=== PATIENT | female | born 1945 | race Caucasian/White ===

== ENCOUNTER 2020-05-17 10:45 | Outpatient (REF) | payer MEDICARE, SELFPAY ==
[2020-05-17 11:36] LABS: MANUAL DIFF FLAG NO
[2020-05-17 11:48] LABS: Basophils Percent Auto 0.6 % (0-2); Eosinophils Absolute Auto 0.1 X10*3/uL (0.0-0.4); Hematocrit 38.4 % (37-47); Hemoglobin 12.4 g/dl (12.0-16.0); Imm Gran Abs Auto 0.01 X10*3/uL (0.00-0.03); Imm Gran Pct Auto 0.2 % (0.0-0.4); Lymphocytes Percent Auto 39.6 % (20-40); Mean Corpuscular HGB Conc 32.3 g/dl (31.0-35.0); Mean Corpuscular Hemoglobin 29.8 pg (27.0-33.0); Mean Corpuscular Volume 92.3 fL (80-98); Monocytes Absolute Auto 0.5 X10*3/uL (0.1-1.2); Monocytes Percent Auto 8.8 % (2-11); Neutrophils Absolute Auto 2.5 X10*3/uL (2.0-8.3); Neutrophils Percent Auto 48.8 % (45-73); Platelet Count 286 X10*3/uL (160-400); Red Blood Count 4.16 X10*6/uL (4.20-5.50); White Blood Count 5.1 X10*3/uL (4.8-10.8)
[2020-05-17 12:06] LABS: Alanine Aminotransferase 23 U/L (0-31); Albumin Level 4.2 g/dL (3.5-5.0); Alkaline Phosphatase 87 U/L (39-117); Anion Gap 11 (12-20); Aspartate Amino Transferase 20 U/L (5-31); Bilirubin Total 0.6 mg/dL (0.0-1.0); Blood Urea Nitrogen 21 mg/dL (9-16); Calcium 10.1 mg/dL (8.4-10.2); Carbon Dioxide 28 mmol/L (22-29); Chloride 106 mmol/L (96-108); Cholesterol 199 mg/dL; Estimated Glomerular Filt Rate 56; Glucose Fasting 101 mg/dL (60-99); HDL Cholesterol 61 mg/dL; LDL Cholesterol Calculated 122 mg/dl; Potassium 4.7 mmol/L (3.3-5.1); Sodium 140 mmol/L (135-145); Total Protein 6.6 g/dL (6.5-8.0); Triglycerides 84 mg/dL
[2020-05-17 12:14] LABS: TSH reflex Free T4 0.58 uIU/mL (0.32-4.0)
[2020-05-17 12:37] LABS: Glucose Urine UA NEG (NEG); Leukocyte Esterase Urine NEG (NEG); Nitrite Urine NEG (NEG); Urine Blood NEG (NEG); Urine Ketones NEG (NEG); Urine Protein NEG (NEG-TRACE)
[2020-05-17 12:41] LABS: Appearance Urine CLEAR; Color Urine YELLOW
[2020-05-17 12:53] LABS: Folate 7.2 ng/mL (> or = 4.0); Vitamin B12 789 pg/mL (200-900)
== END 2020-05-17 10:46 | disposition home or self-care (01) ==
LOC: HO.LAB 10:45
PROVIDERS: PCP Internal Medicine; Visit Provider Internal Medicine
DX: E78.00 Pure hypercholesterolemia, unspecified (principal); I10 Essential (primary) hypertension
CPT/HCPCS: 36415; 80053; 80061; 81003; 82607; 82746; 84443; 85025

== ENCOUNTER 2020-09-20 11:14 | Outpatient (REF) | payer MEDICARE, SELFPAY ==
[2020-09-20 12:04] LABS: MANUAL DIFF FLAG NO
[2020-09-20 12:11] LABS: Basophils Percent Auto 0.5 % (0-2); Eosinophils Absolute Auto 0.1 X10*3/uL (0.0-0.4); Eosinophils Percent Auto 1.8 % (0-4); Hematocrit 40.7 % (37-47); Hemoglobin 13.3 g/dl (12.0-16.0); Imm Gran Abs Auto 0.01 X10*3/uL (0.00-0.03); Imm Gran Pct Auto 0.2 % (0.0-0.4); Lymphocytes Absolute Auto 1.8 X10*3/uL (1.2-4.9); Lymphocytes Percent Auto 30.3 % (20-40); Mean Corpuscular HGB Conc 32.7 g/dl (31.0-35.0); Mean Corpuscular Hemoglobin 29.8 pg (27.0-33.0); Mean Corpuscular Volume 91.3 fL (80-98); Mean Platelet Volume 9.3 fL (9.4-12.3); Monocytes Absolute Auto 0.5 X10*3/uL (0.1-1.2); Neutrophils Absolute Auto 3.5 X10*3/uL (2.0-8.3); Neutrophils Percent Auto 58.2 % (45-73); Platelet Count 282 X10*3/uL (160-400); Red Blood Count 4.46 X10*6/uL (4.20-5.50); Red Cell Distribution Width 12.8 % (11.0-16.0)
[2020-09-20 12:43] LABS: Alanine Aminotransferase 21 U/L (0-31); Albumin Level 4.6 g/dL (3.5-5.0); Alkaline Phosphatase 87 U/L (39-117); Anion Gap 12 (12-20); Aspartate Amino Transferase 19 U/L (5-31); Bilirubin Total 1.3 mg/dL (0.0-1.0); Blood Urea Nitrogen 15 mg/dL (9-16); C Reactive Protein 0.04 mg/dL (< or = 0.50); Calcium 10.5 mg/dL (8.4-10.2); Carbon Dioxide 27 mmol/L (22-29); Chloride 105 mmol/L (96-108); Cholesterol 251 mg/dL; Estimated Glomerular Filt Rate > 60; Glucose Fasting 102 mg/dL (60-99); HDL Cholesterol 66 mg/dL; LDL Cholesterol Calculated 165 mg/dl; Potassium 4.3 mmol/L (3.3-5.1); Sodium 140 mmol/L (135-145); Total Protein 7.2 g/dL (6.5-8.0); Triglycerides 103 mg/dL
[2020-09-20 12:55] LABS: TSH reflex Free T4 1.13 uIU/mL (0.32-4.0); Vitamin D 25-OH Total 23.2 ng/mL (>30)
[2020-09-20 13:05] LABS: Erythrocyte Sedimentation Rate 10 MM/HR (0-20)
[2020-09-20 13:32] LABS: Folate 11.4 ng/mL (> or = 4.0); Vitamin B12 945 pg/mL (200-900)
[2020-09-20 13:33] LABS: Glucose Urine UA NEG (NEG); Leukocyte Esterase Urine NEG (NEG); Nitrite Urine NEG (NEG); Urine Blood NEG (NEG); Urine Ketones NEG (NEG); Urine Protein NEG (NEG-TRACE)
[2020-09-20 13:40] LABS: Appearance Urine CLEAR; Color Urine YELLOW; UACC Culture Trigger NO
[2020-09-21 17:31] LABS: Lyme Abs Screen <0.90 index
[2020-09-22 13:03] LABS: Anti Nuclear Antibody Screen NEGATIVE (NEGATIVE)
== END 2020-09-20 11:15 | disposition home or self-care (01) ==
LOC: HO.LAB 11:14
PROVIDERS: PCP Internal Medicine; Visit Provider Internal Medicine
DX: E53.8 Deficiency of other specified B group vitamins (principal); I10 Essential (primary) hypertension; M25.50 Pain in unspecified joint; M79.10 Myalgia, unspecified site; E78.00 Pure hypercholesterolemia, unspecified; E55.9 Vitamin D deficiency, unspecified
CPT/HCPCS: 36415; 80053; 80061; 81003; 82306; 82550; 82607; 82746; 84443; 85025; 85652; 86038; 86039; 86140; 86617; 86618

== ENCOUNTER 2021-02-02 17:49 | Outpatient (REF) | payer MEDICARE, SELFPAY ==
--- NOTE | ~2021-02-02 | MR_ITS ---
MRI OF THE BRAIN WITHOUT IV CONTRAST INDICATION: Mild dementia. COMPARISON: None available. TECHNIQUE: Multiplanar multisequence MR imaging of the brain was obtained without IV contrast. FINDINGS: There is no hydrocephalus, extra-axial surface collection, or herniation. 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 Chronic lacunar infarcts within the cerebellar hemispheres bilaterally. The major flow voids at the skull base are preserved. There is no acute infarct on diffusion-weighted imaging. There is no intracranial hemorrhage on the gradient recalled echo acquisition. The midline structures are normal. The cerebellar tonsils are normally positioned. The cerebellum and brainstem are normal. The craniocervical junction is normal. Osseous marrow signal intensity is homogenous. The visualized soft tissues are unremarkable. 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 Chronic lacunar infarcts within the cerebellar hemispheres bilaterally. No acute findings.
== END 2021-02-02 17:50 | disposition home or self-care (01) ==
LOC: HO.MRI 17:49
PROVIDERS: Visit Provider Psychiatry & Neurology Neurology
DX: F03.90 Unspecified dementia, unspecified severity, without behavioral disturbance, psychotic disturbance, mood disturbance, and anxiety (principal)
CPT/HCPCS: 70551

== ENCOUNTER 2021-02-25 06:54 | Outpatient (REF) | payer MEDICARE, SELFPAY ==
[2021-02-25 07:02] LABS: MANUAL DIFF FLAG NO
[2021-02-25 07:25] LABS: Basophils Percent Auto 0.7 % (0-2); Eosinophils Absolute Auto 0.1 X10*3/uL (0.0-0.4); Eosinophils Percent Auto 2.1 % (0-4); Hematocrit 40.7 % (37.0-47.0); Hemoglobin 13.3 g/dl (12.0-16.0); Imm Gran Abs Auto 0.01 X10*3/uL (0.00-0.03); Imm Gran Pct Auto 0.2 % (0.0-0.4); Lymphocytes Absolute Auto 2.2 X10*3/uL (1.2-4.9); Lymphocytes Percent Auto 39.2 % (20-40); Mean Corpuscular HGB Conc 32.7 g/dl (31.0-35.0); Mean Corpuscular Hemoglobin 30.3 pg (27.0-33.0); Mean Corpuscular Volume 92.7 fL (80.0-98.0); Mean Platelet Volume 9.2 fL (9.4-12.3); Monocytes Absolute Auto 0.6 X10*3/uL (0.1-1.2); Monocytes Percent Auto 10.8 % (2-11); Neutrophils Absolute Auto 2.7 x10*3/uL (2.0-8.3); Platelet Count 297 X10*3/uL (160-400); Red Blood Count 4.39 X10*6/uL (4.20-5.50); Red Cell Distribution Width 13.1 % (11.0-16.0); White Blood Count 5.7 X10*3/uL (4.8-10.8)
[2021-02-25 08:08] LABS: Alanine Aminotransferase 22 U/L (0-31); Albumin Level 4.4 g/dL (3.5-5.0); Alkaline Phosphatase 79 U/L (39-117); Anion Gap 11 (12-20); Aspartate Amino Transferase 18 U/L (5-31); Bilirubin Total 0.8 mg/dL (0.0-1.0); Blood Urea Nitrogen 16 mg/dL (9-16); Calcium 10.8 mg/dL (8.4-10.2); Carbon Dioxide 27 mmol/L (22-29); Chloride 104 mmol/L (96-108); Cholesterol 215 mg/dL; Estimated Glomerular Filt Rate > 60; Glucose Fasting 108 mg/dL (60-99); HDL Cholesterol 57 mg/dL; LDL Cholesterol Calculated 139 mg/dl; Potassium 5.2 mmol/L (3.3-5.1); Sodium 137 mmol/L (135-145); Triglycerides 99 mg/dL
[2021-02-25 08:14] LABS: Vitamin D 25-OH Total 48.1 ng/mL (>30)
== END 2021-02-25 06:55 | disposition home or self-care (01) ==
LOC: HO.LAB 06:54
PROVIDERS: PCP Internal Medicine; Visit Provider Internal Medicine
DX: E55.9 Vitamin D deficiency, unspecified (principal); E78.00 Pure hypercholesterolemia, unspecified; I10 Essential (primary) hypertension
CPT/HCPCS: 36415; 80053; 80061; 82306; 85025

== ENCOUNTER 2021-03-04 08:05 | Outpatient (REF) | payer MEDICARE, SELFPAY ==
--- NOTE | ~2021-03-04 | CT_ITS ---
EXAMINATION: CT ANGIOGRAM NECK WITH CONTRAST CT ANGIOGRAM BRAIN WITH CONTRAST CLINICAL INFORMATION: Embolic cerebral infarction. COMPARISON: Brain MRI 02/02/2021.. TECHNIQUE: Test bolus sequences followed by intravenous administration 100 mL of Omnipaque 350. Helical imaging was performed in the axial plane from the thoracic inlet to the skull vertex. Delayed postcontrast imaging of the head was also performed. The data was processed at the medical technologist workstation for generation of MIP sequences. Angled MIPs and volume rendered reformatted images were also generated at an offline 3D workstation. Stenoses are assessed in accordance with NASCET criteria unless otherwise indicated. This CT examination was performed using dose optimization techniques as appropriate, variously including the following: *Automated exposure control *Adjustment of mA and/or kV according to patient size (this includes techniques or standardized protocols for targeted exams where dose is matched to indication/reason for exam; i.e. extremities or head) *Use of iterative reconstruction technique DLP: 2269 mGy-cm FINDINGS: Head CT: There is no intracranial hemorrhage, extra-axial collection, mass effect, or acute territorial infarction. A chronic infarct is again noted within the right occipital lobe within the WAGON WINDER vascular territory. Mild patchy foci of hypoattenuation are seen within the cerebral white matter. No abnormal enhancement is seen. The dural venous sinuses are normally opacified. The extracranial structures are within normal limits. Neck CTA: The aortic arch and great vessel origins are patent. Atheromatous changes are seen at the bilateral carotid bifurcations resulting in less than 50% stenosis of both proximal internal carotid arteries. The cervical segments of both ICAs are patent. Both vertebral arteries are patent. Head CTA: The anterior circulation is patent. The ACAs and MCAs are patent with symmetric collaterals. There is poor opacification of the right P2 WAGON WINDER segment. The P1 segment appears patent. There is asymmetrically diminished collaterals within the right WAGON WINDER vascular territory. There is focal moderate stenosis of the left P2 WAGON WINDER segment. No aneurysm is seen. Non-vascular findings: The cervical soft tissues are within normal limits. The thyroid gland demonstrates heterogeneous attenuation likely related to small nodules. No consolidation is seen within the visualized upper lungs. Multilevel degenerative changes are noted within the spine. CT/CT angio head neck IMPRESSION: CT head: No intracranial hemorrhage or large acute infarction. Redemonstration of chronic infarct within the right occipital lobe. Background changes of chronic microangiopathy. CTA neck: Less than 50% stenosis seen involving the bilateral proximal internal carotid arteries related to calcific plaque. Vertebral arteries are patent. CTA head: Right WAGON WINDER segment demonstrate poor opacification of the P2 and more distal segments likely reflecting severe stenosis or residual thrombotic occlusion in the setting of prior infarction. Left P2 segment demonstrates moderate stenosis. Basilar artery and vertebral arteries are patent. Anterior circulation is patent. The patient developed hives following contrast administration. If contrast is deemed medically necessary for a future encounter, a steroid prep should be administered. Any future contrast based CT examination should be done in a hospital setting for patient safety reasons.
[2021-03-04] MEDS: iohexoL 350 MG/ML 100 ML INFUS..BTL IV (09:38)
== END 2021-03-04 08:06 | disposition home or self-care (01) ==
LOC: HO.CT 08:05
PROVIDERS: Visit Provider Psychiatry & Neurology Neurology
DX: I63.40 Cerebral infarction due to embolism of unspecified cerebral artery (principal)
CPT/HCPCS: 70496; 70498; Q9967

== ENCOUNTER → 2021-03-18 09:02 | Outpatient (REF) | payer MEDICARE, SELFPAY ==
--- NOTE | 2021-03-18 09:08 | CA_ITS ---
Transthoracic Echocardiogram Patient (Last, First, Middle): Flores Li G Gender: Female Date of : 1945 Age: 76 Procedure Date: 03/18/2021 Procedure Type: Transthoracic Echocardiogram Location: OP Height: 167.64 cm Weight: 78.02 kg BSA: 1.88 m2 Heart Rate: bpm BP: 134 / 72 mmHg Van Loader: SADIQ Referring MD: Melodie Lopez MD Symptoms: IJ3.40 EMBOLIC CEREBRAL INFARCTION Study Quality: Fair ECG Rhythm: Sinus Conclusions: - The left ventricular systolic function is normal. The calculated ejection fraction is 64% by biplane method. - No obvious valvular pathology seen on this study. Findings Left Ventricle Normal left ventricular cavity size. There is normal left ventricular wall thickness. The left ventricular systolic function is normal. The calculated ejection fraction is 64% by biplane method. There is no evidence of regional wall motion abnormalities. Diastolic function is normal for age. Right Ventricle Normal right ventricular cavity size and systolic function. Atria Both atria are normal in size. Aortic Valve There is a normal trileaflet aortic valve. There is no aortic valve stenosis. There is no aortic valve regurgitation. Mitral Valve The mitral valve appears normal. There is mild anterior mitral leaflet thickening. There is trace mitral valve regurgitation. There is no mitral valve stenosis. Pulmonic Valve The pulmonic valve was not well visualized. Tricuspid Valve There is trace tricuspid valve regurgitation. The pulmonary artery systolic pressure is normal. Great Vessels The aortic annulus, sinuses of valsalva, and asc aorta are normal in size. Venous The inferior vena cava is normal in size and collapses greater than 50% with inspiration. Pericardium/Pleural There is no evidence of pericardial effusion. Prior Study Comparison No prior study available for comparison. Recommendations, Care & Conclusions No obvious valvular pathology seen on this study. Measurements 2D Linear Measurements IVSd: 1.00 0.6-0.9/0.6-1.0 cm LVIDd: 4.09 3.9-5.3/4.2-5.9 cm LVIDd Index: 2.18 2.4-3.2/2.2-3.1 cm/m2 LVIDs: 2.82 2.0-3.6 cm LVPWd: 0.94 0.7-1.1 cm Ao Root: 3.20 2.1-3.5 cm LA Diam: 3.20 2.7-3.8/3.0-4.0 cm LAIDs Index: 1.70 1.5-2.3 cm/m2 LV Mass: 156.31 67-162/88-224 g LV Mass Index: 83.14 43-95/49-115 g/m2 LVOT Diam: 2.00 3.0+(-)1.3 cm 2D Systolic Function EF 4C: 59.90 >55% EF 2C: 66.80 >55% EF BiP: 63.80 >55% Mitral Valve MV Pk E: 0.86 MV PK A: 1.07 MV Decel Time: 273.00 E/A: 0.80 E'Lateral: 10.00 E'Medial: 7.51 E/E' Med: 11.50 E/E' Lat: 8.60 PHT: 80.00 MVA PHT: 2.75 Decel [place]: 3.16 Aortic Valve AoV Pk Pj: 1.23 AoV Mn Pj: 0.91 AoV VTI: 0.26 AoV Pk Grad: 6.00 Aov Mn Grad: 4.00 SCOTT Cont.VTI: 2.99 LVOT LVOT Pk Pj: 1.23 LVOT Mn Pj: 0.72 LVOT VTI: 0.25 LVOT Pk Grad: 6.00 LVOT Mn Grad: 3.00 LVOT Diam: 2.00 LVOT Area: 3.14 Diastolic Function MV Pk E: 0.86 MV Pk A: 1.07 E/A: 0.80 E'Medial: 7.51 E/E' Med: 11.50 E' Laterial: 10.00 E/E' Lat: 8.60 Right Ventricle TAPSE (mm): 21.70 TVS' Pj: 13.80 Tricuspid Valve TR Pk Pj: 2.40 TR Pk Grad: 23.00 RA Press: 3.00 RVSP: 26.00 Great Vessels Aorta Ao Root-2D: 3.20 2.0-3.7 cm Ao Asc: 3.40 2.1-3.4 cm Ao Arch: 3.00 Updated in Other Vendor System with Status of Final Wali Quintero MD electronically signed on 03/20/2021 1:16:39 PM with status of Final
--- NOTE | 2021-03-18 09:20 | ECG_ITS ---
Hook-up date: 2021-03-18 10:06:00 Duration: 47:59:00 Test Indications: EMBOLIC CEREBRAL INFARCTION Medications: 195463 QRS complexes 648 Ventricular ectopics which represent <1 % of total QRS comp. 8 Supraventricular ectopics which represent <1 % of total QRS comp. * Paced QRS complexs which represent % of total QRS comp. VENTRICULAR ECTOPY 648 Isolated 3 Bigeminal Cycles 0 Couplets 0 Runs 0 Beats in Runs * Beats LONGEST at * BPM at :: -- * Beats FASTEST at * BPM at :: -- SUPRAVENTRICULAR ECTOPY 8 Isolated 0 Couplets 0 Runs 0 Beats in Runs * Beats LONGEST at * BPM at :: -- * Beats FASTEST at * BPM at :: -- HEART RATES 52 MIN at 06:17:01 2021-03-19 76 AVG 131 MAX at 16:50:14 2021-03-19 LONGEST RR 1.2240 secs at 00:02:51 2021-03-20 S-T LEVELS Channel 1 - 128 mm at 10:06:00 2021-03-18 - 128 mm at 10:06:00 2021-03-18 Channel 2 - 128 mm at 10:06:00 2021-03-18 - 128 mm at 10:06:00 2021-03-18 Channel 3 - 128 mm at 02:92:51 -- - 128 mm at 02:92:51 Underlying rhythm is sinus; Average ventricular rate 76/min; range 52-131/min; Occasional ventricular ectopy- minimal burden; Very rare supraventricular ectopy; No sustained arrhythmias. Referred By: Melodie Lopez Overread By: FRANCISCO LYNN
== END ==
LOC: HO.CARD 09:02
PROVIDERS: Visit Provider Psychiatry & Neurology Neurology
DX: I63.40 Cerebral infarction due to embolism of unspecified cerebral artery (principal)
CPT/HCPCS: 93225; 93226; 93306

== ENCOUNTER 2021-08-13 09:43 | Outpatient (REF) | payer MEDICARE, SELFPAY ==
[2021-08-13 11:31] LABS: Alanine Aminotransferase 21 U/L (0-31); Albumin Level 4.5 g/dL (3.5-5.0); Alkaline Phosphatase 82 U/L (39-117); Anion Gap 10 (12-20); Aspartate Amino Transferase 20 U/L (5-31); Bilirubin Total 1.3 mg/dL (0.0-1.0); Blood Urea Nitrogen 17 mg/dL (9-16); Calcium 10.2 mg/dL (8.4-10.2); Carbon Dioxide 27 mmol/L (22-29); Chloride 107 mmol/L (96-108); Cholesterol 228 mg/dL; Estimated Glomerular Filt Rate > 60; Glucose Fasting 110 mg/dL (60-99); HDL Cholesterol 71 mg/dL; LDL Cholesterol Calculated 138 mg/dl; Potassium 4.2 mmol/L (3.3-5.1); Sodium 140 mmol/L (135-145); Triglycerides 95 mg/dL
== END 2021-08-13 09:44 | disposition home or self-care (01) ==
LOC: HO.HMGCLDS 09:43
PROVIDERS: Visit Provider Nurse Practitioner Family
DX: E78.00 Pure hypercholesterolemia, unspecified (principal); I10 Essential (primary) hypertension
CPT/HCPCS: 36415; 80053; 80061

== ENCOUNTER 2021-11-02 11:48 | Outpatient (REF) | payer MEDICARE, SELFPAY ==
[2021-11-02 14:56] LABS: Influenza A PCR NEGATIVE (Negative); Influenza B PCR NEGATIVE (Negative); Resp Syncy Virus RNA Qual PCR NEGATIVE (Negative); SARS COV2 PCR INHOUSE POSITIVE (Negative)
== END 2021-11-02 11:49 | disposition home or self-care (01) ==
LOC: HO.LAB 11:48
PROVIDERS: Visit Provider Nurse Practitioner Family
DX: Z20.822 Contact with and (suspected) exposure to COVID-19 (principal); R52 Pain, unspecified
CPT/HCPCS: 0241U

== ENCOUNTER 2021-12-16 07:13 | Outpatient (REF) | payer MEDICARE, SELFPAY ==
[2021-12-16 11:22] LABS: Appearance Urine Clear; Color Urine Yellow; Glucose Urine UA Negative (Negative); Leukocyte Esterase Urine Small (1+) (Negative); Nitrite Urine Negative (Negative); UMIC TRIGGER UACC YES; Urine Blood Negative (Negative); Urine Ketones Negative (Negative); Urine Protein Trace mg/dL (Neg-Trace)
[2021-12-16 11:27] LABS: MANUAL DIFF FLAG NO
[2021-12-16 11:29] LABS: Bacteria Urine None Seen (None Seen); Hyaline Casts Urine 0-2 /LPF (0-2); RBC Urine 0-2 /HPF (0-2); Squamous Epithelial Cell Urine 0-2 /HPF (0-2); UACC Culture Trigger YES
[2021-12-16 11:53] LABS: Basophils Percent Auto 0.9 % (0-2); Eosinophils Absolute Auto 0.1 X10*3/uL (0.0-0.4); Hematocrit 38.5 % (37.0-47.0); Hemoglobin 12.8 g/dl (12.0-16.0); Imm Gran Abs Auto 0.01 X10*3/uL (0.00-0.03); Imm Gran Pct Auto 0.2 % (0.0-0.4); Lymphocytes Absolute Auto 1.5 X10*3/uL (1.2-4.9); Lymphocytes Percent Auto 31.3 % (20-40); Mean Corpuscular HGB Conc 33.2 g/dl (31.0-35.0); Mean Corpuscular Hemoglobin 31.1 pg (27.0-33.0); Mean Corpuscular Volume 93.7 fL (80.0-98.0); Mean Platelet Volume 9.5 fL (9.4-12.3); Monocytes Absolute Auto 0.4 X10*3/uL (0.1-1.2); Monocytes Percent Auto 7.7 % (2-11); Neutrophils Absolute Auto 2.7 x10*3/uL (2.0-8.3); Neutrophils Percent Auto 56.9 % (45-73); Platelet Count 340 X10*3/uL (160-400); Red Blood Count 4.11 X10*6/uL (4.20-5.50); Red Cell Distribution Width 13.3 % (11.0-16.0); White Blood Count 4.7 X10*3/uL (4.8-10.8)
[2021-12-16 12:00] LABS: Estimated Average Glucose 111 mg/dL; Hemoglobin A1c % 5.5 %
[2021-12-16 12:25] LABS: TSH reflex Free T4 1.06 uIU/mL (0.32-4.0); Vitamin D 25-OH Total 36.1 ng/mL (>30)
[2021-12-16 12:33] LABS: Alanine Aminotransferase 19 U/L (0-31); Albumin Level 4.4 g/dL (3.5-5.0); Alkaline Phosphatase 84 U/L (39-117); Anion Gap 15 (12-20); Aspartate Amino Transferase 17 U/L (5-31); Bilirubin Total 1.1 mg/dL (0.0-1.0); Blood Urea Nitrogen 19 mg/dL (9-16); Calcium 10.1 mg/dL (8.4-10.2); Carbon Dioxide 23 mmol/L (22-29); Chloride 108 mmol/L (96-108); Cholesterol 218 mg/dL; Estimated Glomerular Filt Rate > 60; Glucose Fasting 105 mg/dL (60-99); HDL Cholesterol 70 mg/dL; LDL Cholesterol Calculated 133 mg/dl; Potassium 4.1 mmol/L (3.3-5.1); Sodium 142 mmol/L (135-145); Total Protein 6.8 g/dL (6.5-8.0); Triglycerides 77 mg/dL
== END 2021-12-16 07:14 | disposition home or self-care (01) ==
LOC: HO.HMGCLDS 07:13
PROVIDERS: PCP Internal Medicine; Visit Provider Internal Medicine
DX: R73.01 Impaired fasting glucose (principal); I10 Essential (primary) hypertension; E78.00 Pure hypercholesterolemia, unspecified; E55.9 Vitamin D deficiency, unspecified
CPT/HCPCS: 36415; 80053; 80061; 81001; 82306; 83036; 84443; 85025; 87086

== ENCOUNTER 2022-04-15 09:36 | Outpatient (REF) | payer MEDICARE, SELFPAY ==
[2022-04-15 11:13] LABS: Alanine Aminotransferase 43 U/L (0-31); Albumin Level 4.1 g/dL (3.5-5.0); Alkaline Phosphatase 78 U/L (39-117); Anion Gap 13 (12-20); Aspartate Amino Transferase 25 U/L (5-31); Bilirubin Total 1.7 mg/dL (0.0-1.0); Blood Urea Nitrogen 14 mg/dL (9-16); Calcium 9.7 mg/dL (8.4-10.2); Carbon Dioxide 26 mmol/L (22-29); Chloride 107 mmol/L (96-108); Cholesterol 213 mg/dL; Estimated Glomerular Filt Rate > 60; Glucose Fasting 95 mg/dL (60-99); HDL Cholesterol 59 mg/dL; LDL Cholesterol Calculated 138 mg/dl; Potassium 4.5 mmol/L (3.3-5.1); Sodium 141 mmol/L (135-145); Total Protein 6.3 g/dL (6.5-8.0); Triglycerides 81 mg/dL
== END 2022-04-15 09:37 | disposition home or self-care (01) ==
LOC: HO.HMGCLDS 09:36
PROVIDERS: PCP Internal Medicine; Visit Provider Internal Medicine
DX: E78.00 Pure hypercholesterolemia, unspecified (principal)
CPT/HCPCS: 36415; 80053; 80061

== ENCOUNTER 2022-05-26 09:58 | Outpatient (REF) | payer MEDICARE, SELFPAY ==
[2022-05-26 10:10] LABS: MANUAL DIFF FLAG NO
[2022-05-26 10:56] LABS: Basophils Percent Auto 0.6 % (0-2); Eosinophils Absolute Auto 0.1 X10*3/uL (0.0-0.4); Eosinophils Percent Auto 2.2 % (0-4); Hemoglobin 12.4 g/dl (12.0-16.0); Imm Gran Abs Auto 0.01 X10*3/uL (0.00-0.03); Imm Gran Pct Auto 0.2 % (0.0-0.4); Lymphocytes Absolute Auto 1.9 X10*3/uL (1.2-4.9); Lymphocytes Percent Auto 29.6 % (20-40); Mean Corpuscular HGB Conc 32.6 g/dl (31.0-35.0); Mean Corpuscular Hemoglobin 30.2 pg (27.0-33.0); Mean Corpuscular Volume 92.7 fL (80.0-98.0); Mean Platelet Volume 9.9 fL (9.4-12.3); Monocytes Absolute Auto 0.6 X10*3/uL (0.1-1.2); Neutrophils Absolute Auto 3.6 x10*3/uL (2.0-8.3); Neutrophils Percent Auto 57.4 % (45-73); Platelet Count 282 X10*3/uL (160-400); Red Cell Distribution Width 12.9 % (11.0-16.0); White Blood Count 6.3 X10*3/uL (4.8-10.8)
[2022-05-26 11:27] LABS: B Type Natriuretic Peptide 59 pg/mL (<100)
[2022-05-26 11:57] LABS: Alanine Aminotransferase 20 U/L (0-31); Albumin Level 4.1 g/dL (3.5-5.0); Alkaline Phosphatase 84 U/L (39-117); Anion Gap 14 (12-20); Aspartate Amino Transferase 19 U/L (5-31); Bilirubin Total 1.4 mg/dL (0.0-1.0); Blood Urea Nitrogen 16 mg/dL (9-16); Carbon Dioxide 26 mmol/L (22-29); Chloride 106 mmol/L (96-108); Estimated Glomerular Filt Rate > 60; Glucose Random 101 mg/dL (60-115); Potassium 4.9 mmol/L (3.3-5.1); Sodium 141 mmol/L (135-145); Total Protein 6.3 g/dL (6.5-8.0)
== END 2022-05-26 09:59 | disposition home or self-care (01) ==
LOC: HO.LAB 09:58
PROVIDERS: PCP Internal Medicine; Visit Provider Internal Medicine
DX: R60.0 Localized edema (principal); I10 Essential (primary) hypertension
CPT/HCPCS: 36415; 80053; 83880; 85025

== ENCOUNTER 2022-06-21 10:03 | Outpatient (REF) | payer MEDICARE, SELFPAY ==
--- NOTE | 2022-06-21 10:00 | EMG_ITS ---
Please see scanned EMG / Nerve Conduction Report. MTDD
== END 2022-06-21 10:04 | disposition home or self-care (01) ==
LOC: HO.NEURO 10:03
PROVIDERS: PCP Internal Medicine; Visit Provider Internal Medicine
DX: R20.2 Paresthesia of skin (principal); M79.603 Pain in arm, unspecified
CPT/HCPCS: 95885; 95913

== ENCOUNTER 2022-06-27 14:52 | Outpatient (AMB) | payer MEDICARE, SELFPAY ==
[2022-06-27 15:01] VITALS: BP 120/68; PULSE 79; O2SAT 95; BMI 26.0
--- NOTE | 2022-06-27 15:01 | A.OFFPC_ITS ---
Vital Signs 06/27/22 15:01 Height 5 ft 6 in Weight 161 lb BMI 26.0 BP 120/68 Blood Pressure Location Lt brachial Position Sitting Pulse 79 Pulse Source Pulse Oximeter Pulse Oximetry (%) 95 Oxygen Delivery Method Room Air Intake Visit Reasons: blood pressure monitoring with change of Rx - HTN Intake Note: Patient is here to follow up HTN. Door Puller Required: No Accompanied by: Self / Same As Patient Allergies iohexol [From Omnipaque] Adverse Reaction (Verified 07/30/23 17:21) Hives Medication List - Last Reconciled 06/27/22 by Ronnie Parr MD aspirin 81 mg PO DAILY cholecalciferol (vitamin D3) 50 mcg PO DAILY 90 days cyclosporine 0.05% (Restasis) drps ophthalmic (eye) furosemide 40 mg PO DAILY 30 days magnesium oxide 400 mg PO DAILY 90 days mecobalamin (vitamin B12) 1,000 mcg sublingual DAILY pravastatin 20 mg PO DAILY 90 days Tobacco use date assessed: 06/27/22 Fall risk assessment: No Falls in past year HPI blood pressure monitoring with change of Rx - HTN HPI Details Patient comes in today for her follow up visit States that she has been experiencing frequent sensation of dry mouth lately Also reports (+) urinary frequency and on and off cramping pain in her legs at night Is presently on Furosemide 40 mg QD and is now completely off Amlodipine States that the swelling in her legs and feet have cleared up although she is still getting systolic BP readings from 140 to 160 mm in the mornings recently She denies any headaches or dizziness Denies any chest pains, no SOB No nausea/vomiting, no abdominal pain No change in bowel habits noted Still has frequent numbness and tingling sensation in both hands, especially at night - states that she would at times wake up in the middle of the night unable to feel her hands and would have to shake her hands vigorously for several minutes just to get some feeling in her hands back Would like to know how her EMG & NCV done last week came out [facility] Medical History Vitamin D deficiency Insomnia Memory impairment Osteopenia Arthralgia Myalgia Blurring of vision Overweight (BMI 25.0-29.9) Benign essential hypertension Pure hypercholesterolemia Hypertension Surgical History History of bunionectomy Family History Father No problems noted. Mother No problems noted. Social History Housing: [facility] Alcohol intake: current Alcohol intake frequency: holidays/special occasions only Alcohol type: wine Patient Tobacco Use Status: Former Tobacco user Tobacco use type: Cigarette e-Cigarette/Vaping Use: Never Used Second Hand Smoke Exposure: Yes service: No Current occupational status: retired Cognitive needs: No Hearing needs: No Vision needs: Yes (reading glasses) Questionnaire PHQ-9 Over the last 2 weeks, how often have you been bothered by any of the following problems? 1. Little interest or pleasure in doing things: not at all 2. Feeling down, depressed, or hopeless: not at all 3. Trouble falling or staying asleep, or sleeping too much: not at all 4. Feeling tired or having little energy: not at all 5. Poor appetite or overeating: not at all 6. Feeling bad about yourself - or that you are a failure or have let yourself or your family down: not at all 7. Trouble concentrating on things, such as reading the newspaper or watching television: not at all 8. Moving or speaking so slowly that other people could have noticed. Or the opposite - being so fidgety or restless that you have been moving around a lot more than usual: not at all 9. Thoughts that you would be better off or of hurting yourself in some wa y: not at all Total score: 0 Depression Screening Interpretation: Negative 03355 - PHQ-9 Billing: Yes Source: Developed by Drs. Jorge Newton, Kelley Brown, Wilber Live and colleagues, with an educational ewelina from [email or web address]. Thrive Questionnaire Date Thrive assessed: 06/27/22 I am a: Patient What is your living situation today?: I have a steady place to live Within the past 12 months, did the food you bought not last and you didn't have the money to get more?: Never true Within the past 12 months, did you worry whether your food would run out before you got money to buy more?: Never true Do you have trouble paying for medicines?: No Do you have trouble getting transportation to medical appointments?: No Do you have trouble paying your heating and electricity bill?: No Do you have trouble taking care of your child, family member or friend?: No Do you have trouble with day-to-day activities such as bathing, preparing meals, shopping, managing finances, etc.?: No Are you currently unemployed and looking for a job?: No Are you interested in more education?: No Currently or been in a relationship where the following occur: no concerns reported AUDIT C Alcohol Use Questionnaire (AUDIT-C) 1. How often do you have a drink containing alcohol?: Monthly or less 2. How many drinks containing alcohol do you have on a typical day when you are drinking?: 1 or 2 3. How often do you have six or more drinks on one occasion?: Never Total Score: 1 Score Reviewed/Action Taken: Yes BRYON-7 AMB Questionnaire BRYON-7 Date BRYON - 7 assessed: 06/27/22 Feeling nervous, anxious, or on edge: 0 = Not at all Not being able to stop or control worryin = Not at all Worrying too much about different things: 0 = Not at all Trouble relaxin = Not at all Being so restless that it is hard to sit still: 0 = Not at all Becoming easily annoyed or irritable: 0 = Not at all Feeling afraid as if something awful might happen: 0 = Not at all Total BRYON-7 score (0-4 normal; 5-9 mild; 10-14 moderate; 15-21 severe): 0 Source: Developed by Drs. Jorge Newton, Kelley Brown, Wilber Live and colleagues, with an educational ewelina from [email or web address]. Review of Systems Const Reports difficulty sleeping, Reports fatigue, Denies fever(s) and Denies headache(s) ENT Denies dysphagia, Denies dizziness, Reports dry mouth, Denies headache(s) and Denies sore throat Card Denies chest pain, Denies leg edema, Denies palpitations and Denies dyspnea Resp Denies cough and Denies dyspnea GI Denies abdominal pain, Denies constipation, Denies dysphagia, Denies heartburn, Denies diarrhea, Denies nausea and Denies vomiting Denies difficulty voiding, Reports nocturia and Denies dysuria Musc Reports muscle cramps (on and off in the legs, especially at night), Reports numbness (frequent, in both hands) and Reports tingling (recurrent, in both hands) Neuro Denies dizziness, Denies headache(s), Reports numbness (frequent, in both hands) and Reports tingling (recurrent, in both hands) Endo Reports fatigue and Denies palpitations Physical exam (Primary Care) Vital Signs: Last Vital Signs Pulse 79 06/27/22 15:01 BP 120/68 06/27/22 15:01 Pulse Ox 95 06/27/22 15:01 Oxygen Delivery Method Room Air 06/27/22 15:01 BMI result Body Mass Index 26.0 Tobacco/Smoking Status: Tobacco use Status Tobacco use date assessed 06/27/22 06/27/22 15:02 Patient Tobacco Use Status Former Tobacco user 06/27/22 15:02 Tobacco use type Cigarette 06/27/22 15:02 e-Cigarette/Vaping Use Never Used 06/27/22 15:02 PHQ-9: PHQ-9 Score PHQ-9: Total score 0 06/27/22 16:12 Depression Screening Interpretation: Negative Thrive Assessment: Date of Thrive Assessment Date Thrive assessed 06/27/22 06/27/22 15:02 Currently or been in a relationship where the following occur: no concerns reported Const General: no acute distress and alert HENMT Throat: Yes posterior oropharynx normal and Yes tonsils normal (no TP congestion) Neck Neck: Yes no lymphadenopathy and Yes supple Resp Auscultation: clear to auscultation bilaterally, no rales and no wheezes Cardio Rate: regular rate Rhythm: regular rhythm Heart sounds: no murmurs GI Palpation (GI): Soft to palpation, nontender and No hepatosplenomegaly present Neuro Other: (+) Tinel's sign and Phalen's sign bilaterally Extrem General: Yes no clubbing, cyanosis or edema Assessment and Plan Assessment & Plan (1) Bilateral lower extremity edema: Code(s): R60.0 - Localized edema Plan: Was possibly due to side effects of her Amlodipine, which she stopped taking last month She is currently still taking Furosemide 40 mg Q AM but is complaining of increased dry mouth, so will try cutting her Furosemide back down to 20 mg QD now that her edema has cleared up mostly States that the swelling in her legs and feet have cleared up although she is still getting systolic BP readings from 140 to 160 mm in the mornings recently (2) Benign essential hypertension: Code(s): I10 - Essential (primary) hypertension Plan: Reinforced low sodium diet - goal is systolic BP of at least 140 mm or less Was on Amlodipine 10 mg QD until she stopped taking it last month due to increasing swelling of her legs and feet Is now just taking Furosemide 40 mg QD with iimprovement of her lower extremity swelling but as she is now complaining of increased dry mouth, will cut her Furosemide back down to 20 mg QD Have instructed patient to continue eating at least 1 banana a day while she is on Furosemide to help offset her potassium loss Will start her additionally now on Losartan 50 mg QD to try to get her blood pressure under better control Have also instructed patient to continue monitoring her blood pressure regularly for now (3) Pain and numbness of upper extremity: Code(s): M79.603 - Pain in arm, unspecified; R20.0 - Anesthesia of skin Plan: Results of her NCV and EMG done last week confirmed that she has moderate CTS bilaterally Have instructed patient to start using wrist braces to see if these will help stabilize her wrist and hand symptoms Advised that if her symptoms persist or get worse, we will then need to consider referring her to orthopedics for consideration for carpal tunnel release (4) Vitamin D deficiency: Code(s): E55.9 - Vitamin D deficiency, unspecified Plan: Continue Vitamin D3 2000 units QD (5) Osteopenia: Code(s): M85.80 - Other specified disorders of bone density and structure, unspecified site Qualifiers: Osteopenia location: multiple sites Qualified Code(s): M85.89 - Other specified disorders of bone density and structure, multiple sites Plan: BMD done back in January 2019 revealed (+) osteopenia Patient had her BMD done in 2020 through a [facility] screening - BMD was reportedly at 0.6 g/cm2 (was at 0.738 g/cm2 in the left hip in 2019) Patient is encouraged to continue with daily calcium and Vitamin D supplements and regular exercise as tolerated; fall precautions again reinforced Will recheck BMD again in 1 to 2 years for follow up (6) Insomnia: Code(s): G47.00 - Insomnia, unspecified Qualifiers: Insomnia type: unspecified Qualified Code(s): G47.00 - Insomnia, unspecified Plan: Sleep hygiene reinforced She has tried OTC Melatonin previously up to 10 mg with NO relief; thinks that her trouble sleeping has more to do with anxiety as her older sister was diagnosed with bladder CA and is currently not doing too well at a [facility] in [place] She was started previously on Doxepin 25 mg Q HS PRN but 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 and has gone back to taking Melatonin with variable results (7) Overweight (BMI 25.0-29.9): Code(s): E66.3 - Overweight Plan: Reinforced diet/exercise as tolerated/lose weight Plan Follow up as scheduled in August 2022 Medications: New losartan 50 mg PO DAILY 90 tabs 1RF 90 days Changed From furosemide 40 mg PO DAILY 30 days 30 tabs 3RF To furosemide 20 mg (1/2 x 40 mg) PO DAILY 30 tabs 3RF Coding Level of Care Code Est Pt Level 4 (18648) Complex EM visit Add On G2211 Diagnoses Bilateral lower extremity edema R60.0 Benign essential hypertension I10 Pain and numbness of upper extremity M79.603; R20.0 Vitamin D deficiency E55.9 Osteopenia of multiple sites M85.89 Osteopenia location: multiple sites Insomnia, unspecified type G47.00 Insomnia type: unspecified Overweight (BMI 25.0-29.9) E66.3
== END 2022-06-27 15:56 | disposition home or self-care (01) ==
LOC: HO.HMGH 14:52
PROVIDERS: PCP Internal Medicine; Visit Provider Internal Medicine
DX: R60.0 Localized edema (principal); I10 Essential (primary) hypertension; M79.603 Pain in arm, unspecified; R20.0 Anesthesia of skin; E55.9 Vitamin D deficiency, unspecified; M85.89 Other specified disorders of bone density and structure, multiple sites; G47.00 Insomnia, unspecified; E66.3 Overweight
CPT/HCPCS: 99499

== ENCOUNTER 2022-09-01 08:44 | Outpatient (REF) | payer MEDICARE, SELFPAY ==
[2022-09-01 11:58] LABS: Appearance Urine Clear; Color Urine Yellow; Glucose Urine UA Negative (Negative); Leukocyte Esterase Urine Small (1+) (Negative); Nitrite Urine Negative (Negative); Specific Gravity - Urine 1.025 (1.005-1.025); UMIC TRIGGER UACC YES; Urine Blood Negative (Negative); Urine Ketones Negative (Negative); Urine Protein Trace mg/dL (Neg-Trace)
[2022-09-01 13:54] LABS: Bacteria Urine None Seen (None Seen); RBC Urine 0-2 /HPF (0-2); UACC Culture Trigger YES; WBC Urine 0-5 /HPF (0-5)
[2022-09-01 13:55] LABS: MANUAL DIFF FLAG NO
[2022-09-01 14:07] LABS: Basophils Absolute Auto 0.1 X10*3/uL (0.0-0.2); Basophils Percent Auto 1.2 % (0-2); Eosinophils Absolute Auto 0.1 X10*3/uL (0.0-0.4); Hemoglobin 12.9 g/dl (12.0-16.0); Imm Gran Abs Auto 0.01 X10*3/uL (0.00-0.03); Imm Gran Pct Auto 0.2 % (0.0-0.4); Lymphocytes Absolute Auto 1.8 X10*3/uL (1.2-4.9); Mean Corpuscular HGB Conc 33.1 g/dl (31.0-35.0); Mean Corpuscular Hemoglobin 30.3 pg (27.0-33.0); Mean Corpuscular Volume 91.5 fL (80.0-98.0); Mean Platelet Volume 9.2 fL (9.4-12.3); Monocytes Absolute Auto 0.5 X10*3/uL (0.1-1.2); Monocytes Percent Auto 11.5 % (2-11); Neutrophils Absolute Auto 1.9 x10*3/uL (2.0-8.3); Neutrophils Percent Auto 43.1 % (45-73); Platelet Count 314 X10*3/uL (160-400); Red Blood Count 4.26 X10*6/uL (4.20-5.50); Red Cell Distribution Width 12.6 % (11.0-16.0); White Blood Count 4.3 X10*3/uL (4.8-10.8)
[2022-09-01 14:21] LABS: Estimated Average Glucose 105 mg/dL; Hemoglobin A1c % 5.3 %
[2022-09-01 14:25] LABS: Alanine Aminotransferase 17 U/L (0-31); Albumin Level 4.1 g/dL (3.5-5.0); Alkaline Phosphatase 80 U/L (39-117); Anion Gap 11 (12-20); Aspartate Amino Transferase 16 U/L (5-31); Bilirubin Total 1.4 mg/dL (0.0-1.0); Blood Urea Nitrogen 16 mg/dL (9-16); Calcium 10.3 mg/dL (8.4-10.2); Carbon Dioxide 25 mmol/L (22-29); Chloride 102 mmol/L (96-108); Cholesterol 210 mg/dL; Estimated Glomerular Filt Rate > 60; Glucose Fasting 97 mg/dL (60-99); HDL Cholesterol 55 mg/dL; LDL Cholesterol Calculated 137 mg/dl; Potassium 3.9 mmol/L (3.3-5.1); Sodium 134 mmol/L (135-145); Total Protein 6.8 g/dL (6.5-8.0); Triglycerides 91 mg/dL
[2022-09-01 14:46] LABS: TSH reflex Free T4 1.07 uIU/mL (0.32-4.0); Vitamin D 25-OH Total 38.3 ng/mL (>30)
== END 2022-09-01 08:45 | disposition home or self-care (01) ==
LOC: HO.HMGCLDS 08:44
PROVIDERS: PCP Internal Medicine; Visit Provider Internal Medicine
DX: E78.00 Pure hypercholesterolemia, unspecified (principal); I10 Essential (primary) hypertension; E55.9 Vitamin D deficiency, unspecified; R73.01 Impaired fasting glucose; R30.0 Dysuria
CPT/HCPCS: 36415; 80053; 80061; 81001; 82306; 83036; 84443; 85025; 87086

== ENCOUNTER 2022-09-06 13:08 | Outpatient (AMB) | payer MEDICARE, SELFPAY ==
[2022-09-06 13:11] VITALS: BP 132/70; PULSE 75; O2SAT 95; BMI 26.2
--- NOTE | 2022-09-06 13:11 | MHC.PC.OV ---
Vital Signs 09/06/22 13:11 Height 5 ft 6 in Weight 162 lb 2 oz BMI 26.2 BP 132/70 Blood Pressure Location Lt brachial Position Sitting Pulse 75 Pulse Source Pulse Oximeter Pulse Oximetry (%) 95 Oxygen Delivery Method Room Air Intake Visit Reasons: hyperlipidemia, HTN, IFG, osteopenia Stock Counter Required: No Accompanied by: Self / Same As Patient Allergies iohexol [From Omnipaque] Adverse Reaction (Verified 09/06/22 13:36) Hives Medication List - Last Reconciled 09/06/22 by Ronnie Parr MD aspirin 81 mg PO DAILY cholecalciferol (vitamin D3) 50 mcg PO DAILY 90 days cyclosporine 0.05% (Restasis) drps ophthalmic (eye) furosemide 20 mg (1/2 x 40 mg) PO DAILY losartan 50 mg PO DAILY 90 days magnesium oxide 400 mg PO DAILY 90 days mecobalamin (vitamin B12) 1,000 mcg sublingual DAILY pravastatin 20 mg PO DAILY 90 days Tobacco use date assessed: 09/06/22 Fall risk assessment: No Falls in past year Last assessed Fall Risk: 09/06/22 Dental Screening Dental Screen Date: 09/06/22 Did you have a dental visit in the last 12 months?: Yes Did you have a dental problem in the last 6 months where you did not have access to dental care?: No Was dental information given to patient?: Patient has dentist HPI hyperlipidemia, HTN, IFG, osteopenia HPI Details Patient comes in today for her follow up visit States that she feels okay although she continues to experience increased fatigue often Also continues to experience symptoms of dry mouth as well as dry eyes She denies any headaches or dizziness Denies any chest pains, no SOB No nausea/vomiting, no abdominal pain No change in bowel habits noted Notes that she has been experiencing increased diffuse/multiple joint pains as well for the past couple of months - states that she tends to ache all over often and takes Tylenol 500 mg at night at times just to help her get some sleep Had her follow up labs done a few days ago - to discuss her results [facility] Medical History Arthralgia Benign essential hypertension Blurring of vision Hypertension Insomnia Memory impairment Myalgia Osteopenia Overweight (BMI 25.0-29.9) Pure hypercholesterolemia Vitamin D deficiency Surgical History History of bunionectomy Family History Father No problems noted. Mother No problems noted. Social History Housing: Condominium Alcohol intake: current Alcohol intake frequency: holidays/special occasions only Alcohol type: wine Patient Tobacco Use Status: Former Tobacco user Tobacco use type: Cigarette e-Cigarette/Vaping Use: Never Used Second Hand Smoke Exposure: Yes service: No Current occupational status: retired Cognitive needs: No Hearing needs: No Vision needs: Yes (reading glasses) Questionnaire PHQ-9 Over the last 2 weeks, how often have you been bothered by any of the following problems? 1. Little interest or pleasure in doing things: not at all 2. Feeling down, depressed, or hopeless: not at all 3. Trouble falling or staying asleep, or sleeping too much: not at all 4. Feeling tired or having little energy: not at all 5. Poor appetite or overeating: not at all 6. Feeling bad about yourself - or that you are a failure or have let yourself or your family down: not at all 7. Trouble concentrating on things, such as reading the newspaper or watching television: not at all 8. Moving or speaking so slowly that other people could have noticed. Or the opposite - being so fidgety or restless that you have been moving around a lot more than usual: not at all 9. Thoughts that you would be better off or of hurting yourself in some way: not at all Total score: 0 Depression Screening Interpretation: Negative [id number] - PHQ-9 Billing: Yes Source: Developed by Drs. Jorge Newton, Kelley Brown, Wilber Live and colleagues, with an educational ewelina from [employer]. Thrive Questionnaire Date Thrive assessed: 09/06/22 I am a: Patient What is your living situation today?: I have a steady place to live Within the past 12 months, did the food you bought not last and you didn't have the money to get more?: Never true Within the past 12 months, did you worry whether your food would run out before you got money to buy more?: Never true Do you have trouble paying for medicines?: No Do you have trouble getting transportation to medical appointments?: No Do you have trouble paying your heating and electricity bill?: No Do you have trouble taking care of your child, family member or friend?: No Do you have trouble with day-to-day activities such as bathing, preparing meals, shopping, managing finances, etc.?: No Are you currently unemployed and looking for a job?: No Are you interested in more education?: No Currently or been in a relationship where the following occur: no concerns reported AUDIT C Alcohol Use Questionnaire (AUDIT-C) 1. How often do you have a drink containing alcohol?: Monthly or less 2. How many drinks containing alcohol do you have on a typical day when you are drinking?: 1 or 2 3. How often do you have six or more drinks on one occasion?: Never Total Score: 1 Score Reviewed/Action Taken: Yes BRYON-7 AMB Questionnaire BRYON-7 Date BRYON - 7 assessed: 09/06/22 Feeling nervous, anxious, or on edge: 0 = Not at all Not being able to stop or control worryin = Not at all Worrying too much about different things: 0 = Not at all Trouble relaxin = Not at all Being so restless that it is hard to sit still: 0 = Not at all Becoming easily annoyed or irritable: 0 = Not at all Feeling afraid as if something awful might happen: 0 = Not at all Total BRYON-7 score (0-4 normal; 5-9 mild; 10-14 moderate; 15-21 severe): 0 Source: Developed by Drs. Jorge Newton, Kelley Brown, Wilber Live and colleagues, with an educational ewelina from [employer]. Review of Systems Const Reports difficulty sleeping, Reports fatigue (increasing) and Denies headache(s) Eyes Reports dry eyes ENT Denies dysphagia, Denies dizziness, Reports dry mouth (frequent), Denies headache(s) and Denies sore throat Card Denies chest pain, Denies leg edema, Denies palpitations and Denies dyspnea Resp Denies cough and Denies dyspnea GI Denies abdominal pain, Denies constipation, Denies dysphagia, Denies heartburn, Denies diarrhea, Denies nausea and Denies vomiting Denies difficulty voiding, Reports nocturia and Denies dysuria Musc Reports back pain (on and off), Reports arthralgias (diffuse - involving multiple joints), Reports muscle cramps (on and off in the legs, especially at night), Reports numbness (frequent, in both hands) and Reports tingling (recurrent, in both hands) Neuro Denies dizziness, Denies headache(s), Reports numbness (frequent, in both hands) and Reports tingling (recurrent, in both hands) Endo Reports fatigue (increasing) and Denies palpitations Physical exam (Primary Care) Vital Signs: Last Vital Signs Pulse 75 09/06/22 13:11 BP 132/70 09/06/22 13:11 Pulse Ox 95 09/06/22 13:11 Oxygen Delivery Method Room Air 09/06/22 13:11 BMI result Body Mass Index 26.2 Tobacco/Smoking Status: Tobacco use Status Tobacco use date assessed 09/06/22 09/06/22 13:19 Patient Tobacco Use Status Former Tobacco user 09/06/22 13:19 Tobacco use type Cigarette 09/06/22 13:19 e-Cigarette/Vaping Use Never Used 09/06/22 13:19 PHQ-9: PHQ-9 Score PHQ-9: Total score 0 09/06/22 13:19 Depression Screening Interpretation: Negative Thrive Assessment: Date of Thrive Assessment Date Thrive assessed 09/06/22 09/06/22 13:19 Currently or been in a relationship where the following occur: no concerns reported Const General: no acute distress and alert HENMT Ears: TM's normal bilaterally and EAC's normal Throat: Yes posterior oropharynx normal and Yes tonsils normal (no TP congestion) Neck Neck: Yes no lymphadenopathy and Yes supple Resp Auscultation: clear to auscultation bilaterally, no rales and no wheezes Cardio Rate: regular rate Rhythm: regular rhythm Heart sounds: no murmurs GI Palpation (GI): Soft to palpation and nontender Auscultation: normal bowel sounds Skin Rashes: no rashes Neuro Other: (+) Tinel's sign and Phalen's sign bilaterally Extrem General: Yes no clubbing, cyanosis or edema Results Reviewed Results Reviewed: Laboratory Tests 09/01/22 09/01/22 09/01/22 08:51 08:51 08:51 WBC 4.3 L Hgb 12.9 Hct 39.0 Plt Count 314 Sodium 134 L Potassium 3.9 D Creatinine 0.87 Estimated GFR > 60 Fasting Glucose 97 Hemoglobin A1c % Calcium 10.3 H AST 16 ALT 17 Triglycerides 91 Cholesterol 210 LDL Cholesterol, Calc 137 HDL Cholesterol 55 25-OH Vitamin D Total 38.3 TSH 1.07 Ur Specific [place] 1.025 Urine Protein Trace Urine Glucose (UA) Negative Urine Blood Negative 09/01/22 08:51 WBC Hgb Hct Plt Count Sodium Potassium Creatinine Estimated GFR Fasting Glucose Hemoglobin A1c % 5.3 Calcium AST ALT Triglycerides Cholesterol LDL Cholesterol, Calc HDL Cholesterol 25-OH Vitamin D Total TSH Ur Specific [place] Urine Protein Urine Glucose (UA) Urine Blood Assessment and Plan Assessment & Plan (1) Benign essential hypertension: Code(s): I10 - Essential (primary) hypertension Plan: BP currently appears much better controlled Reinforced low sodium diet - goal is systolic BP of at least 140 mm or less Continue Furosemide 40 mg QD Was on Amlodipine 10 mg QD until she stopped taking it a few months ago due to increasing swelling of her legs and feet - swelling has since resolved Have instructed patient to continue eating at least 1 banana a day while she is on Furosemide to help offset her potassium loss (2) Bilateral lower extremity edema: Code(s): R60.0 - Localized edema Plan: Appears resolved at present; was possibly due to side effects of her Amlodipine, which she stopped taking a while back Her Furosemide 40 mg QD also has helped her a lot in clearing up her edema and keeping it in check (3) Pure hypercholesterolemia: Code(s): E78.00 - Pure hypercholesterolemia, unspecified Plan: Results of her labs done a few days ago reviewed and discussed with patient - advised that her cholesterol levels appear to have improved slightly from previous but are still slightly elevated Reinforced low cholesterol diet Continue Pravastatin 20 mg QD Will recheck labs in 4 months for follow up (4) Impaired fasting glucose: Code(s): R73.01 - Impaired fasting glucose Plan: HgbA1c was normal at 5.5% on her labs done a few months ago; FBS was normal at 95 mg/dl on her recent labs Reinforced low calorie diet/exercise as tolerated Will continue to monitor this regularly (5) Vitamin D deficiency: Code(s): E55.9 - Vitamin D deficiency, unspecified Plan: Continue Vitamin D3 2000 units QD (6) Carpal tunnel syndrome, bilateral: Code(s): G56.03 - Carpal tunnel syndrome, bilateral upper limbs Plan: EMG and NCV done back in June 2022 confirmed (+) moderate CTS bilaterally Patient has been referred to Dr. Macedo (per her request) and she is now scheduled to be seen on 10/27/22 (7) Osteopenia: Code(s): M85.80 - Other specified disorders of bone density and structure, unspecified site Qualifiers: Osteopenia location: multiple sites Qualified Code(s): M85.89 - Other specified disorders of bone density and structure, multiple sites Plan: BMD done back in January 2019 revealed (+) osteopenia Patient had her BMD done in 2020 through a [facility] screening - BMD was reportedly at 0.6 g/cm2 (was at 0.738 g/cm2 in the left hip in 2019) Patient is encouraged to continue with daily calcium and Vitamin D supplements and regular exercise as tolerated; fall precautions again reinforced Will recheck BMD again in 1 to 2 years for follow up (8) Arthralgia: Comment: after COVID-19 vaccine Code(s): M25.50 - Pain in unspecified joint Qualifiers: Joint pain location: unspecified Qualified Code(s): M25.50 - Pain in unspecified joint Plan: Due to her recent increasing fatigue, arthralgia as well as ongoing symptoms of dry mouth and dry eyes, will send her for some additional labs NALINI for further evaluation and to help r/o any potential CTDs, especially scleroderma (9) Nocturnal leg cramps: Code(s): G47.62 - Sleep related leg cramps Plan: May be due to muscle fatigue; patient is not anemic and her electrolyte levels are normal on her recent labs Will have patient try taking some OTC Magnesium oxide 400 mg Q PM to see if this will help with her leg cramps (10) Memory impairment: Code(s): R41.3 - Other amnesia Plan: Has been seen and evaluated by neurology MRI of the brain done back in January 2021 revealed mild to moderate chronic microangiopathy and 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 Chronic lacunar infarcts within the cerebellar hemispheres bilaterally are noted. No acute findings were seen. Initial CT of the head revealed the chronic infarct within the right occipital lobe seen on previous MRI. There are no intracranial hemorrhage or large acute infarction and background changes of chronic microangiopathy were noted. CTA of the head and neck revealed less than 50% stenosis seen involving the bilateral proximal internal carotid arteries related to calcific plaques. Vertebral arteries are patent. CTA of the head showed a right [employer]ER segment with poor opacification of the P2 and more distal segments likely reflecting severe stenosis or residuals thrombotic occlusion in the setting of prior infarction. Left P2 segment demonstrates moderate stenosis. Basilar artery and vertebral arteries are patent. Anterior circulation is patent Patient does not want to go back and follow up with neurology again and also declined offer to refer her to a different neurologist and/or vascular surgeon for further management - states that she will call for referral if she changes her mind (11) Insomnia: Code(s): G47.00 - Insomnia, unspecified Qualifiers: Insomnia type: unspecified Qualified Code(s): G47.00 - Insomnia, unspecified Plan: Sleep hygiene reinforced Has tried OTC Melatonin previously up to 10 mg with NO relief; thinks that her trouble sleeping has more to do with anxiety as her older sister was diagnosed with bladder CA and is currently not doing too well at a alf in [place] Was started previously on Doxepin 25 mg Q HS PRN but 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 and has gone back to taking Melatonin with variable results (12) Overweight (BMI 25.0-29.9): Code(s): E66.3 - Overweight Plan: Reinforced diet/exercise as tolerated/lose weight Plan Follow up in 4 months Orders: Orders C Reactive Protein Today M25.50 - Pain in unspecified joint Rheumatoid Factor Today M25.50 - Pain in unspecified joint Erythrocyte Sedimentation Rate Today M25.50 - Pain in unspecified joint ELIZABETH Reflex Titer and Pattern Today M25.50 - Pain in unspecified joint Sjogren's Antibodies Today H04.123 - Dry eye syndrome of bilateral lacrimal glands, M25.50 - Pain in unspecified joint, R68.2 - Dry mouth, unspecified Comprehensive Meno. Panel Fast 4 Months E78.00 - Pure hypercholesterolemia, unspecified Lipid Panel 4 Months E78.00 - Pure hypercholesterolemia, unspecified Coding Level of Care Code Est Pt Level 4 (28552) Diagnoses Benign essential hypertension I10 Bilateral lower extremity edema R60.0 Pure hypercholesterolemia E78.00 Impaired fasting glucose R73.01 Vitamin D deficiency E55.9 Carpal tunnel syndrome, bilateral G56.03 Osteopenia M85.89 Osteopenia location: multiple sites Arthralgia M25.50 Joint pain location: unspecified Nocturnal leg cramps G47.62 Memory impairment R41.3 Insomnia G47.00 Insomnia type: unspecified Overweight (BMI 25.0-29.9) E66.3
== END 2022-09-06 13:58 | disposition home or self-care (01) ==
PROVIDERS: PCP Internal Medicine; Visit Provider Internal Medicine
DX: I10 Essential (primary) hypertension (principal); E55.9 Vitamin D deficiency, unspecified; R60.0 Localized edema; E78.00 Pure hypercholesterolemia, unspecified; R73.01 Impaired fasting glucose; G56.03 Carpal tunnel syndrome, bilateral upper limbs; M85.89 Other specified disorders of bone density and structure, multiple sites; M25.50 Pain in unspecified joint; G47.62 Sleep related leg cramps; R41.3 Other amnesia; G47.00 Insomnia, unspecified; E66.3 Overweight
CPT/HCPCS: 99214

== ENCOUNTER 2022-09-07 14:30 | Outpatient (REF) | payer MEDICARE, SELFPAY ==
[2022-09-07 17:29] LABS: C Reactive Protein < 0.04 mg/dL (< or = 0.50); Rheumatoid Factor < 13.0 IU/mL (<15.0)
[2022-09-07 17:50] LABS: Erythrocyte Sedimentation Rate 8 MM/HR (0-20)
[2022-09-11 16:04] LABS: Antibody to SS-A Antigen <1.0 NEG AI (<1.0 NEG); Antibody to SS-B Antigen <1.0 NEG AI (<1.0 NEG)
[2022-09-14 14:43] LABS: Anti Nuclear Antibody Screen NEGATIVE (NEGATIVE)
== END 2022-09-07 14:31 | disposition home or self-care (01) ==
LOC: HO.HMGCLDS 14:30
PROVIDERS: PCP Internal Medicine; Visit Provider Internal Medicine
DX: M25.50 Pain in unspecified joint (principal); R68.2 Dry mouth, unspecified; H04.123 Dry eye syndrome of bilateral lacrimal glands
CPT/HCPCS: 36415; 85652; 86038; 86140; 86235; 86431

== ENCOUNTER 2023-01-06 14:41 | Outpatient (REF) | payer MEDICARE, SELFPAY ==
[2023-01-06 15:29] LABS: Alanine Aminotransferase 26 U/L (0-31); Albumin Level 4.3 g/dL (3.5-5.0); Alkaline Phosphatase 80 U/L (39-117); Anion Gap 13 (12-20); Aspartate Amino Transferase 23 U/L (5-31); Blood Urea Nitrogen 18 mg/dL (9-16); Calcium 10.2 mg/dL (8.4-10.2); Carbon Dioxide 28 mmol/L (22-29); Chloride 105 mmol/L (96-108); Cholesterol 226 mg/dL (<200); Estimated Glomerular Filt Rate > 60; Glucose Fasting 98 mg/dL (60-99); HDL Cholesterol 67 mg/dL (>40); LDL Cholesterol Calculated 139 mg/dL (<100); Potassium 4.8 mmol/L (3.3-5.1); Sodium 141 mmol/L (135-145); Total Protein 7.1 g/dL (6.5-8.0); Triglycerides 100 mg/dL (<150)
== END 2023-01-06 14:42 | disposition home or self-care (01) ==
LOC: HO.HMGCLDS 14:41
PROVIDERS: PCP Internal Medicine; Visit Provider Internal Medicine
DX: E78.00 Pure hypercholesterolemia, unspecified (principal)
CPT/HCPCS: 36415; 80053; 80061

== ENCOUNTER 2023-01-08 13:14 | Outpatient (AMB) | payer MEDICARE, SELFPAY ==
[2023-01-08 13:25] VITALS: BP 140/82; PULSE 76; O2SAT 96; BMI 27.7
--- NOTE | 2023-01-08 13:25 | A.OFFPC_ITS ---
Vital Signs 01/08/23 13:25 Height 5 ft 6 in Weight 171 lb 6 oz BMI 27.7 BP 140/82 H Blood Pressure Location Lt brachial Position Sitting Pulse 76 Pulse Source Pulse Oximeter Pulse Oximetry (%) 96 Oxygen Delivery Method Room Air Intake Visit Reasons: [facility] f/u [employer] Required: No Accompanied by: Self / Same As Patient Allergies iohexol [From Omnipaque] Adverse Reaction (Verified 07/30/23 17:21) Hives Medication List - Last Reconciled 01/08/23 by Ronnie Parr MD aspirin 81 mg PO DAILY cholecalciferol (vitamin D3) 50 mcg PO DAILY 90 days cyclosporine 0.05% (Restasis) drps ophthalmic (eye) furosemide 20 mg (1/2 x 40 mg) PO DAILY losartan 50 mg PO DAILY 90 days magnesium oxide 400 mg PO DAILY 90 days mecobalamin (vitamin B12) 1,000 mcg sublingual DAILY pravastatin 40 mg PO DAILY 90 days Tobacco use date assessed: 01/08/23 Fall risk assessment: No Falls in past year Last assessed Fall Risk: 01/08/23 Dental Screening Dental Screen Date: 01/08/23 Did you have a dental visit in the last 12 months?: Yes Did you have a dental problem in the last 6 months where you did not have access to dental care?: No Was dental information given to patient?: Patient has dentist HPI [facility] f/u HPI Details Patient comes in today for her follow up visit States that she feels okay She was seen by Dr. Macedo at [place] a couple of months ago for her carpal tunnel syndrome and was recommended to undergo carpal tunnel release but patient remains skeptical about this and is requesting for a referral to Dr. Jerome Conroy in [place] for a second opinion She denies any increased headaches or dizziness lately Denies any chest pains, no increased SOB No nausea/vomiting, no abdominal pain No change in bowel habits noted She had her follow up labs done a couple of days ago - to discuss her results [facility] Medical History Vitamin D deficiency Insomnia Memory impairment Osteopenia Arthralgia Myalgia Blurring of vision Overweight (BMI 25.0-29.9) Benign essential hypertension Pure hypercholesterolemia Hypertension Surgical History History of bunionectomy Family History Father No problems noted. Mother No problems noted. Social History [facility] Alcohol intake: current Alcohol intake frequency: holidays/special occasions only Alcohol type: wine Patient Tobacco Use Status: Former Tobacco user Tobacco use type: Cigarette e-Cigarette/Vaping Use: Never Used Second Hand Smoke Exposure: Yes service: No Current occupational status: retired Cognitive needs: No Hearing needs: No Vision needs: Yes (reading glasses) Questionnaire PHQ-9 Over the last 2 weeks, how often have you been bothered by any of the following problems? 1. Little interest or pleasure in doing things: not at all 2. Feeling down, depressed, or hopeless: not at all 3. Trouble falling or staying asleep, or sleeping too much: not at all 4. Feeling tired or having little energy: not at all 5. Poor appetite or overeating: not at all 6. Feeling bad about yourself - or that you are a failure or have let yourself or your family down: not at all 7. Trouble concentrating on things, such as reading the newspaper or watching television: not at all 8. Moving or speaking so slowly that other people could have noticed. Or the opposite - being so fidgety or restless that you have been moving around a lot more than usual: not at all 9. Thoughts that you would be better off or of hurting yourself in some wa y: not at all Total score: 0 Depression Screening Interpretation: Negative Depression Screening Done: Yes 68309 - PHQ-9 Billing: Yes Source: Developed by Drs. Jorge Newton, Kelley Brown, Wilber Live and colleagues, with an educational ewelina from [employer]. Thrive Questionnaire Date Thrive assessed: 01/08/23 I am a: Patient What is your living situation today?: I have a steady place to live Within the past 12 months, did the food you bought not last and you didn't have the money to get more?: Never true Within the past 12 months, did you worry whether your food would run out before you got money to buy more?: Never true Do you have trouble paying for medicines?: No Do you have trouble getting transportation to medical appointments?: No Do you have trouble paying your heating and electricity bill?: No Do you have trouble taking care of your child, family member or friend?: No Do you have trouble with day-to-day activities such as bathing, preparing meals, shopping, managing finances, etc.?: No Are you currently unemployed and looking for a job?: No Are you interested in more education?: No Please select the resources that you would like help with: None Currently or been in a relationship where the following occur: no concerns reported AUDIT C Alcohol Use Questionnaire (AUDIT-C) 1. How often do you have a drink containing alcohol?: Monthly or less 2. How many drinks containing alcohol do you have on a typical day when you are drinking?: 1 or 2 3. How often do you have six or more drinks on one occasion?: Never Total Score: 1 Score Reviewed/Action Taken: Yes BRYON-7 AMB Questionnaire BRYON-7 Date BRYON - 7 assessed: 01/08/23 Feeling nervous, anxious, or on edge: 0 = Not at all Not being able to stop or control worryin = Not at all Worrying too much about different things: 0 = Not at all Trouble relaxin = Not at all Being so restless that it is hard to sit still: 0 = Not at all Becoming easily annoyed or irritable: 0 = Not at all Feeling afraid as if something awful might happen: 0 = Not at all Total BRYON-7 score (0-4 normal; 5-9 mild; 10-14 moderate; 15-21 severe): 0 Source: Developed by Drs. Jorge Newton, Kelley Brown, Wilber Live and colleagues, with an educational ewelina from [employer]. Review of Systems Const Reports difficulty sleeping, Reports fatigue, Denies fever(s) and Denies headache(s) Eyes Reports dry eyes ENT Denies dysphagia, Denies dizziness, Reports dry mouth (recurrent), Denies otalgia, Denies headache(s), Denies neck pain, Denies odynophagia and Denies so re throat Card Denies chest pain, Denies leg edema, Denies palpitations and Denies dyspnea Resp Denies cough and Denies dyspnea GI Denies abdominal pain, Denies constipation, Denies dysphagia, Denies heartburn, Denies diarrhea, Denies nausea, Denies odynophagia and Denies vomiting Denies difficulty voiding, Reports nocturia, Denies dysuria and Denies urinary urgency Musc Reports back pain (on and off), Reports arthralgias (diffuse - involving multiple joints), Reports muscle cramps (on and off in the legs, especially at night), Denies neck pain, Reports numbness (frequent, in both hands) and Reports tingling (recurrent, in both hands) Skin/Breast Denies rash Neuro Denies dizziness, Denies headache(s), Reports numbness (frequent, in both hands) and Reports tingling (recurrent, in both hands) Endo Reports fatigue and Denies palpitations Physical exam (Primary Care) Vital Signs: Last Vital Signs Pulse 76 01/08/23 13:25 BP 140/82 H 01/08/23 13:25 Pulse Ox 96 01/08/23 13:25 Oxygen Delivery Method Room Air 01/08/23 13:25 BMI result Body Mass Index 27.7 Tobacco/Smoking Status: Tobacco use Status Tobacco use date assessed 01/08/23 01/08/23 13:37 Patient Tobacco Use Status Former Tobacco user 01/08/23 13:37 Tobacco use type Cigarette 01/08/23 13:37 e-Cigarette/Vaping Use Never Used 01/08/23 13:37 PHQ-9: PHQ-9 Score PHQ-9: Total score 0 01/08/23 14:23 Depression Screening Interpretation: Negative Thrive Assessment: Date of Thrive Assessment Date Thrive assessed 01/08/23 01/08/23 13:37 Currently or been in a relationship where the following occur: no concerns reported Const General: no acute distress and alert HENMT Ears: TM's normal bilaterally and EAC's normal Throat: Yes posterior oropharynx normal and Yes tonsils normal (no TP congestion) Neck Neck: Yes no lymphadenopathy and Yes supple Thyroid: Thyroid normal Resp Auscultation: clear to auscultation bilaterally, no rales and no wheezes Cardio Rate: regular rate Rhythm: regular rhythm Heart sounds: no murmurs GI Palpation (GI): Soft to palpation and nontender Auscultation: normal bowel sounds General: Yes no CVA tenderness Back/Spine/Pelvis Back: no CVA tenderness Thoracic/Lumbar Spine: No lumbar spinal tenderness Skin Rashes: no rashes Neuro Other: (+) Tinel's sign and Phalen's sign bilaterally Extrem General: Yes no clubbing, cyanosis or edema Results Reviewed Results Reviewed: Laboratory Tests 01/06/23 14:45 Sodium 141 Potassium 4.8 D Creatinine 0.86 Estimated GFR > 60 Fasting Glucose 98 Calcium 10.2 AST 23 ALT 26 Triglycerides 100 Cholesterol 226 H LDL Cholesterol, Calc 139 H HDL Cholesterol 67 Assessment and Plan Assessment & Plan (1) Pure hypercholesterolemia: Code(s): E78.00 - Pure hypercholesterolemia, unspecified Plan: Results of her labs done a couple of days ago reviewed and discussed with patient - advised that her cholesterol levels are still elevated and have not changed or improved at all from previous Reinforced low cholesterol diet Will increase her Pravastatin to 40 mg QD Will recheck her labs and fasting lipids in 4 months for follow up (2) Benign essential hypertension: Code(s): I10 - Essential (primary) hypertension Plan: Reinforced low sodium diet - goal is systolic BP of at least 140 mm or less Continue Losartan 50 mg QD and Furosemide 40 mg 1/2 tablet QD Was on Amlodipine 10 mg QD but she stopped taking it a few months ago due to increasing swelling of her legs and feet - swelling has since resolved Have instructed patient to continue eating at least 1 banana a day while she is on Furosemide to help offset her potassium loss (3) Bilateral lower extremity edema: Code(s): R60.0 - Localized edema Plan: Appears resolved at present; was possibly due to side effects of her Amlodipine, which she stopped taking a while back Her Furosemide 20 mg QD also has helped her a lot in clearing up her edema and keeping it in check (4) Impaired fasting glucose: Code(s): R73.01 - Impaired fasting glucose Plan: Her HgbA1c was normal at 5.3% on her labs done a few months ago; FBS was normal at 98 mg/dl on her recent labs Reinforced low calorie diet/exercise as tolerated Will continue to monitor this regularly (5) Vitamin D deficiency: Code(s): E55.9 - Vitamin D deficiency, unspecified Plan: Continue Vitamin D3 2000 units QD (6) Carpal tunnel syndrome, bilateral: Code(s): G56.03 - Carpal tunnel syndrome, bilateral upper limbs Plan: EMG and NCV done back in June 2022 confirmed (+) moderate CTS bilaterally Patient was seen by Dr. Macedo (referred to per her request) a couple of months ago and she was recommended to undergo carpal tunnel release surgery but patient is skeptical about this and is now requesting for a referral to Dr. Jerome Conroy in [place] for a second opinion - referral done (7) Osteopenia: Code(s): M85.80 - Other specified disorders of bone density and structure, unspecified site Qualifiers: Osteopenia location: multiple sites Qualified Code(s): M85.89 - Other specified disorders of bone density and structure, multiple sites Plan: BMD done back in January 2019 revealed (+) osteopenia Patient had her BMD done in 2020 through a [facility] screening - BMD was reportedly at 0.6 g/cm2 (was at 0.738 g/cm2 in the left hip in 2019) Patient is encouraged to continue with daily calcium and Vitamin D supplements and regular exercise as tolerated; fall precautions again reinforced Will recheck BMD early next year (2024) for follow up (8) Nocturnal leg cramps: Code(s): G47.62 - Sleep related leg cramps Plan: May be due to muscle fatigue; patient is not anemic and her electrolyte levels are normal on her recent labs We had patient try taking some OTC Magnesium oxide 400 mg Q PM to see if this will help with her leg cramps (9) Memory impairment: Code(s): R41.3 - Other amnesia Plan: She has been seen and evaluated by neurology MRI of the brain done back in January 2021 revealed mild to moderate chronic microangiopathy and 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 Chronic lacunar infarcts within the cerebellar hemispheres bilaterally are noted. No acute findings were seen. Initial CT of the head revealed the chronic infarct within the right occipital lobe seen on previous MRI. There are no intracranial hemorrhage or large acute infarction and background changes of chronic microangiopathy were noted. CTA of the head and neck revealed less than 50% stenosis seen involving the bilateral proximal internal carotid arteries related to calcific plaques. Vertebral arteries are patent. CTA of the head showed a right PERFORATOR OPERATOR segment with poor opacification of the P2 and more distal segments likely reflecting severe stenosis or residuals thrombotic occlusion in the setting of prior infarction. Left P2 segment demonstrates moderate stenosis. Basilar artery and vertebral arteries are patent. Anterior circulation is patent Patient does not want to go back and follow up with neurology again and also declined offer to refer her to a different neurologist and/or vascular surgeon for further management - states that she will call for referral if she changes her mind (10) Insomnia: Code(s): G47.00 - Insomnia, unspecified Qualifiers: Insomnia type: unspecified Qualified Code(s): G47.00 - Insomnia, unspecified Plan: Sleep hygiene reinforced Has tried OTC Melatonin previously up to 10 mg with NO relief; thinks that her trouble sleeping has more to do with anxiety as her older sister was diagnosed with bladder CA and is [place] [facility] [place] Was started previously on Doxepin 25 mg Q HS PRN but patient apparently did not black pickler her Rx and has gone back to taking Melatonin with variable results (11) Overweight (BMI 25.0-29.9): Code(s): E66.3 - Overweight Plan: Reinforced diet/exercise as tolerated/lose weight Plan Follow up in 4 months Orders: Orders Comprehensive [place]. Panel Fast 4 Months E78.00 - Pure hypercholesterolemia, unspecified Lipid Panel 4 Months E78.00 - Pure hypercholesterolemia, unspecified Hemoglobin A1c 4 Months R73.01 - Impaired fasting glucose UA CC w/rflx Micro + Cult 4 Months R30.0 - Dysuria TSH reflex Free T4 4 Months E78.00 - Pure hypercholesterolemia, unspecified Vitamin D 25-OH Total 4 Months E55.9 - Vitamin D deficiency, unspecified Complete Blood Count Auto Diff 4 Months I10 - Essential (primary) hypertension Referrals Orthopedics Referral G56.03 - Carpal tunnel syndrome, bilateral upper limbs Medications: Changed From pravastatin 20 mg PO DAILY 90 days 90 tabs 1RF E78.00 - Pure hypercholesterolemia, unspecified To pravastatin 40 mg PO DAILY 90 tabs 1RF 90 days E78.00 - Pure hypercholesterolemia, unspecified Coding Level of Care Code Est Pt Level 4 (89498) Complex EM visit Add On G2211 Diagnoses Pure hypercholesterolemia E78.00 Benign essential hypertension I10 Bilateral lower extremity edema R60.0 Impaired fasting glucose R73.01 Vitamin D deficiency E55.9 Carpal tunnel syndrome, bilateral G56.03 Osteopenia of multiple sites M85.89 Osteopenia location: multiple sites Nocturnal leg cramps G47.62 Memory impairment R41.3 Insomnia, unspecified type G47.00 Insomnia type: unspecified Overweight (BMI 25.0-29.9) E66.3
== END 2023-01-08 14:38 | disposition home or self-care (01) ==
PROVIDERS: PCP Internal Medicine; Visit Provider Internal Medicine
DX: E78.00 Pure hypercholesterolemia, unspecified (principal); I10 Essential (primary) hypertension; R60.0 Localized edema; R73.01 Impaired fasting glucose; E55.9 Vitamin D deficiency, unspecified; G56.03 Carpal tunnel syndrome, bilateral upper limbs; M85.89 Other specified disorders of bone density and structure, multiple sites; G47.62 Sleep related leg cramps; R41.3 Other amnesia; G47.00 Insomnia, unspecified; E66.3 Overweight
CPT/HCPCS: 99499

== ENCOUNTER 2023-01-22 13:53 | Outpatient (AMB) | payer MEDICARE, SELFPAY ==
--- NOTE | 2023-01-22 14:37 | MHC.OFFWIV ---
Intake Vital Signs 01/22/23 14:38 Height 5 ft 6 in Weight 74.389 kg BMI 26.5 BP 156/80 H Blood Pressure Location Rt brachial Position Sitting Pulse 88 Pulse Source Pulse Oximeter Temp 98.2 F Temp Source Temporal Artery Scan Pulse Oximetry (%) 98 Oxygen Delivery Method Room Air Intake Visit Reasons: EP headache cough body aches [id number] Intake Note: pt is here today for headache,cough,body aches started yesterday Patient Tobacco Use Status: Former Tobacco user Allergies iohexol [From Omnipaque] Adverse Reaction (Verified 01/22/23 14:38) Hives Do you need a note to return to daycare/school/sports/work: No HPI HPI Comments History of Present Illness Details 78 -year-old female hx of htn, hld, who presents with fatigue, malaise, myalgias, cough, subjective fevers and chills that started yesterday.? No known sick contacts.? Denies chest pain, shortness of breath, nausea, vomiting, abdominal pain, headache vision change, dizziness, weakness, changes in bowel or urinary habits Physical exam benign History and physical exam concerning for viral illness versus bronchitis versus flu versus COVID versus RSV.? Unlikely pneumonia, ACS, dissection, pulmonary embolism, acute respiratory distress. Headache likely viral unlikely meningitis, encephalitis, intracranial hemorrhage, stroke. Plan at this time viral testing will discharge patient home with supportive measures.? Educated patient on diagnosis and treatment plan, answered all question, patient verbalizes understanding.? At this time patient will be discharged home, advised to return with new or worsening symptoms.? Educated on worrisome signs and symptoms and when to return.? At this time I feel comfortable discharge home. [facility] Medical History Vitamin D deficiency Insomnia Memory impairment Osteopenia Arthralgia Myalgia Blurring of vision Overweight (BMI 25.0-29.9) Benign essential hypertension Pure hypercholesterolemia Hypertension Surgical History History of bunionectomy Family History Father No problems noted. Mother No problems noted. Social History [facility]: [facility] Alcohol intake: current Alcohol intake frequency: holidays/special occasions only Alcohol type: wine Patient Tobacco Use Status: Former Tobacco user Tobacco use type: Cigarette e-Cigarette/Vaping Use: Never Used Second Hand Smoke Exposure: Yes service: No Current occupational status: retired Cognitive needs: No Hearing needs: No Vision needs: Yes (reading glasses) Review of Systems Const Details: Constitutional : No Weight loss, + Fever, + Chills, + Fatigue, + Malaise ENT/Mouth : No sore throat, No Rhinorrhea, + congestion Eyes: No Eye Pain, No Swelling, No Redness Cardiovascular : No Chest Pain, No SOB, No Dyspnea on Exertion, No Orthopnea, No Edema, No Palpitations Respiratory : + Cough, No Sputum, No Wheezing Gastrointestinal : No Nausea, No Vomiting, No Diarrhea, No Constipation, No abdominal Pain, No Hematochezia, No Melena Genitourinary : No Dysuria, No Urinary Frequency, No Hematuria, Musculoskeletal : No joint pain, + Myalgias, No Joint Swelling Skin : No Skin Lesions, No rash Neuro : No Weakness, No Numbness, No Dizziness, + Headache Psych : No Anxiety/Panic, No Depression All other systems reviewed and are negative All systems reviewed & are unremarkable except as noted in HPI and below Physical Exam Vital Signs: Last Vital Signs Temp 98.2 F 01/22/23 14:38 Pulse 88 01/22/23 14:38 BP 156/80 H 01/22/23 14:38 Pulse Ox 98 01/22/23 14:38 Oxygen Delivery Method Room Air 01/22/23 14:38 BMI result Body Mass Index 26.5 Vital signs stable Appearance: Alert.? Oriented X3.? No acute distress.? Head: Normocephalic, atraumatic, no step-offs or deformities Throat: wnl no exudate or abscess. Speaking in full sentences controlling secreitons well. Eyes: Pupils equal, round and reactive to light.? CVS: Normal heart rate and rhythm.? Pulses normal.? Respiratory: No respiratory distress.? Breath sounds normal.? Abdomen: Soft and nontender.? Skin: Skin warm and dry.? Normal skin color.? Normal skin turgor.? Extremities: No lower extremity edema.? No calf ttp. 5/5 strength to bilateral upper and lower extremities Neuro: Oriented X 3.? No motor deficit.? No sensory deficit. CN 2-12 intact . Normal [id number], [id number] steady tandem gait normal coordination Assessment & Plan Assessment & Plan (1) Viral illness: Code(s): B34.9 - Viral infection, unspecified Plan Take your medications as prescribed. If you were prescribed antibiotics today, it is important that you take your medication to their entirety, do not skip any doses, do not finish them early. Follow-up with your primary care provider this week. Return to the emergency department with new or worsening symptoms. Such as fevers, chills, chest pain, shortness of breath, nausea, vomiting, dizziness, headache, vision changes, lethargy In case of emergency call 911 Orders: Orders SARS-CoV2/FLU/RSV Today B34.9 - Viral infection, unspecified Medications: New benzonatate 100 mg PO BID PRN 14 caps 0RF cough prednisone 40 mg (2 x 20 mg) PO DAILY 10 tabs 0RF 5 days albuterol sulfate 90 mcg/actuation 2 puffs inhalation Q6H PRN 6.7 grams 0RF shortness of breath or wheezing Coding Level of Care Code Est Pt Level 3 (99549) Diagnoses Viral illness B34.9
[2023-01-22 14:38] VITALS: BP 156/80; PULSE 88; TEMP 36.8; O2SAT 98; BMI 26.5
== END 2023-01-22 15:02 | disposition home or self-care (01) ==
PROVIDERS: PCP Internal Medicine; Visit Provider Physician Assistant
DX: B34.9 Viral infection, unspecified (principal)
CPT/HCPCS: 99213

== ENCOUNTER 2023-01-22 15:47 | Outpatient (REF) | payer MEDICARE, SELFPAY ==
[2023-01-22 17:11] LABS: Influenza A PCR NEGATIVE (Negative); Influenza B PCR NEGATIVE (Negative); Resp Syncy Virus RNA Qual PCR NEGATIVE (Negative); SARS COV2 PCR INHOUSE POSITIVE (Negative)
== END 2023-01-22 15:48 | disposition home or self-care (01) ==
LOC: HO.LAB 15:47
PROVIDERS: Visit Provider Physician Assistant
DX: Z20.822 Contact with and (suspected) exposure to COVID-19 (principal)
CPT/HCPCS: 0241U

== ENCOUNTER 2023-07-26 09:19 | Outpatient (REF) | payer MEDICARE, SELFPAY ==
[2023-07-26 09:41] LABS: MANUAL DIFF FLAG NO
[2023-07-26 09:59] LABS: Basophils Percent Auto 0.8 % (0-2); Eosinophils Absolute Auto 0.1 X10*3/uL (0.0-0.4); Eosinophils Percent Auto 2.7 % (0-4); Hemoglobin 12.3 g/dl (12.0-16.0); Imm Gran Abs Auto 0.01 X10*3/uL (0.00-0.03); Imm Gran Pct Auto 0.2 % (0.0-0.4); Lymphocytes Absolute Auto 1.9 X10*3/uL (1.2-4.9); Lymphocytes Percent Auto 38.5 % (20-40); Mean Corpuscular HGB Conc 34.2 g/dl (31.0-35.0); Mean Corpuscular Hemoglobin 31.5 pg (27.0-33.0); Mean Corpuscular Volume 92.3 fL (80.0-98.0); Mean Platelet Volume 8.9 fL (9.4-12.3); Monocytes Absolute Auto 0.4 X10*3/uL (0.1-1.2); Monocytes Percent Auto 8.8 % (2-11); Neutrophils Absolute Auto 2.4 x10*3/uL (2.0-8.3); Platelet Count 272 X10*3/uL (160-400); White Blood Count 4.9 X10*3/uL (4.8-10.8)
[2023-07-26 10:12] LABS: Estimated Average Glucose 111 mg/dL; Hemoglobin A1c % 5.5 % (<6.0)
[2023-07-26 10:31] LABS: Alanine Aminotransferase 21 U/L (0-31); Alkaline Phosphatase 69 U/L (39-117); Anion Gap 8 (12-20); Aspartate Amino Transferase 19 U/L (5-31); Bilirubin Total 1.2 mg/dL (0.0-1.0); Blood Urea Nitrogen 13 mg/dL (9-16); Calcium 9.8 mg/dL (8.4-10.2); Carbon Dioxide 26 mmol/L (22-29); Chloride 108 mmol/L (96-108); Cholesterol 179 mg/dL (<200); Estimated Glomerular Filt Rate > 60; Glucose Fasting 103 mg/dL (60-99); HDL Cholesterol 56 mg/dL (>40); LDL Cholesterol Calculated 110 mg/dL (<100); Potassium 3.9 mmol/L (3.3-5.1); Sodium 138 mmol/L (135-145); Total Protein 6.3 g/dL (6.5-8.0); Triglycerides 66 mg/dL (<150)
[2023-07-26 10:48] LABS: TSH reflex Free T4 0.63 uIU/mL (0.32-4.0); Vitamin D 25-OH Total 25.9 ng/mL (>30)
[2023-07-26 11:03] LABS: Appearance Urine Cloudy; Color Urine Yellow; Glucose Urine UA Negative (Negative); Leukocyte Esterase Urine Trace (Negative); Nitrite Urine Negative (Negative); PH 7.5 (5.0-9.0); UMIC TRIGGER UACC YES; Urine Blood Negative (Negative); Urine Ketones Negative (Negative); Urine Protein Negative (Neg-Trace)
[2023-07-26 11:14] LABS: Bacteria Urine None Seen (None Seen); Hyaline Casts Urine 0-2 /LPF (0-2); RBC Urine 0-2 /HPF (0-2); Squamous Epithelial Cell Urine 0-2 /HPF (0-2); WBC Urine 0-5 /HPF (0-5)
== END 2023-07-26 09:20 | disposition home or self-care (01) ==
LOC: HO.LAB 09:19
PROVIDERS: PCP Internal Medicine; Visit Provider Internal Medicine
DX: E78.00 Pure hypercholesterolemia, unspecified (principal); R73.01 Impaired fasting glucose; E55.9 Vitamin D deficiency, unspecified; I10 Essential (primary) hypertension
CPT/HCPCS: 36415; 80053; 80061; 81001; 81003; 82306; 83036; 84443; 85025

== ENCOUNTER 2023-07-30 16:20 | Outpatient (AMB) | payer MEDICARE, SELFPAY ==
[2023-07-30 16:59] VITALS: BP 180/110; PULSE 82; O2SAT 97; BMI 26.0
--- NOTE | 2023-07-30 16:59 | MHC.PC.OV ---
Vital Signs 07/30/23 16:59 07/30/23 17:42 Height 5 ft 6 in Weight 161 lb 6 oz BMI 26.0 BP 180/110 H 180/100 H Blood Pressure Location Lt brachial Lt brachial Position Sitting Sitting Pulse 82 Pulse Source Pulse Oximeter Pulse Oximetry (%) 97 Oxygen Delivery Method Room Air Intake Visit Reasons: hyperlipidemia, IFG Intake Note: The patient is here for a follow-up appointment. They have discontinued the losartan 50mg due to experiencing joint pain, tiredness, leg cramps, muscle soreness, and difficulty with sleepiness. Urgent Care Physician Assistant Required: No Accompanied by: Self / Same As Patient Allergies iohexol [From Omnipaque] Adverse Reaction (Verified 07/30/23 17:21) Hives Medication List - Last Reconciled 07/30/23 by Ronnie Parr MD albuterol sulfate 90 mcg/actuation 2 puffs inhalation Q6H PRN aspirin 81 mg PO DAILY cholecalciferol (vitamin D3) 50 mcg PO DAILY 90 days cyclosporine 0.05% (Restasis) drps ophthalmic (eye) furosemide 20 mg (1/2 x 40 mg) PO DAILY losartan 50 mg PO DAILY 90 days magnesium oxide 400 mg PO DAILY 90 days mecobalamin (vitamin B12) 1,000 mcg sublingual DAILY pravastatin 40 mg PO DAILY 90 days Tobacco use date assessed: 07/30/23 Fall risk assessment: No Falls in past year Last assessed Fall Risk: 07/30/23 Dental Screening Dental Screen Date: 07/30/23 Did you have a dental visit in the last 12 months?: Yes Did you have a dental problem in the last 6 months where you did not have access to dental care?: No Was dental information given to patient?: Patient has dentist HPI hyperlipidemia, IFG HPI Details Patient comes in today for her follow up visit States that she is currently scheduled for right carpal tunnel release surgery with Dr. Remington monzon at [facility] in a couple of days on 08/01/2023 She will then have her left CTS surgery done in a couple of months on 09/26/2023 She reports that she stopped taking her Losartan 50 mg QD a few weeks ago as she relates experiencing frequent arthralgias, myalgia, leg cramps and fatigue while she was on the medication States that her symptoms have since improved somewhat after stopping her Losartan although she admits that they have not all cleared up completely Is aware that her blood pressure in the office today is very high but states that her BP is often much lower when she checks it at home although she admits that her systolic BP has never gone lower than 140 to 145 mm She presently denies any headaches or dizziness Denies any chest pains, no SOB No nausea/vomiting, no abdominal pain No change in bowel habits noted She had her follow up labs done a few days ago - to discuss her results [facility] Medical History Vitamin D deficiency Insomnia Memory impairment Osteopenia Arthralgia Myalgia Blurring of vision Overweight (BMI 25.0-29.9) Benign essential hypertension Pure hypercholesterolemia Hypertension Surgical History History of bunionectomy Family History Father No problems noted. Mother No problems noted. Social History [facility] Alcohol intake: current Alcohol intake frequency: holidays/special occasions only Alcohol type: wine Patient Tobacco Use Status: Former Tobacco user Tobacco use type: Cigarette e-Cigarette/Vaping Use: Never Used Second Hand Smoke Exposure: Yes service: No Current occupational status: retired Cognitive needs: No Hearing needs: No Vision needs: Yes (reading glasses) Questionnaire PHQ-9 Over the last 2 weeks, how often have you been bothered by any of the following problems? 1. Little interest or pleasure in doing things: not at all 2. Feeling down, depressed, or hopeless: not at all 3. Trouble falling or staying asleep, or sleeping too much: not at all 4. Feeling tired or having little energy: not at all 5. Poor appetite or overeating: not at all 6. Feeling bad about yourself - or that you are a failure or have let yourself or your family down: not at all 7. Trouble concentrating on things, such as reading the newspaper or watching television: not at all 8. Moving or speaking so slowly that other people could have noticed. Or the opposite - being so fidgety or restless that you have been moving around a lot more than usual: not at all 9. Thoughts that you would be better off or of hurting yourself in some way: not at all Total score: 0 Depression Screening Interpretation: Negative Depression Screening Done: Yes [id number] - PHQ-9 Billing: Yes Source: Developed by Drs. Jorge Newton, Kelley Brown, Wilber Live and colleagues, with an educational ewelina from [employer]. Thrive Questionnaire Date Thrive assessed: 07/30/23 I am a: Patient What is your living situation today?: I have a steady place to live Within the past 12 months, did the food you bought not last and you didn't have the money to get more?: Never true Within the past 12 months, did you worry whether your food would run out before you got money to buy more?: Never true Do you have trouble paying for medicines?: No Do you have trouble getting transportation to medical appointments?: No Do you have trouble paying your heating and electricity bill?: No Do you have trouble taking care of your child, family member or friend?: No Do you have trouble with day-to-day activities such as bathing, preparing meals, shopping, managing finances, etc.?: No Are you currently unemployed and looking for a job?: No Are you interested in more education?: No Please select the resources that you would like help with: None Currently or been in a relationship where the following occur: no concerns reported THRIVE Score: 0 AUDIT C Alcohol Use Questionnaire (AUDIT-C) 1. How often do you have a drink containing alcohol?: Monthly or less 2. How many drinks containing alcohol do you have on a typical day when you are drinking?: 1 or 2 3. How often do you have six or more drinks on one occasion?: Never Total Score: 1 Score Reviewed/Action Taken: Yes BRYON-7 AMB Questionnaire BRYON-7 Date BRYON - 7 assessed: 07/30/23 Feeling nervous, anxious, or on edge: 0 = Not at all Not being able to stop or control worryin = Not at all Worrying too much about different things: 0 = Not at all Trouble relaxin = Not at all Being so restless that it is hard to sit still: 0 = Not at all Becoming easily annoyed or irritable: 0 = Not at all Feeling afraid as if something awful might happen: 0 = Not at all Total BRYON-7 score (0-4 normal; 5-9 mild; 10-14 moderate; 15-21 severe): 0 Source: Developed by Drs. Jorge Newton, Kelley Brown, Wilber Live and colleagues, with an educational ewelina from [employer]. BRYON-7 Assessment Billing BRYON-7 Assessment Tool: BRYON-7 Assessment [id number] Review of Systems Const Denies chills, Reports difficulty sleeping, Reports fatigue, Denies fever(s) and Denies headache(s) Eyes Denies blurry vision and Reports dry eyes ENT Denies dysphagia, Denies dizziness, Reports dry mouth (recurrent), Denies otalgia, Denies headache(s), Denies neck pain, Denies odynophagia and Denies sore throat Card Denies chest pain, Denies leg edema, Denies palpitations and Denies dyspnea Resp Denies cough and Denies dyspnea GI Denies abdominal pain, Denies constipation, Denies dysphagia, Denies heartburn, Denies diarrhea, Denies nausea, Denies odynophagia and Denies vomiting Denies difficulty voiding, Reports nocturia, Denies dysuria and Denies urinary urgency Musc Reports back pain (on and off), Reports arthralgias (diffuse - involving multiple joints), Reports muscle cramps (on and off in the legs, especially at night), Denies neck pain, Reports numbness (frequent, in both hands) and Reports tingling (recurrent, in both hands) Skin/Breast Denies rash Neuro Denies dizziness, Denies headache(s), Reports numbness (frequent, in both hands) and Reports tingling (recurrent, in both hands) Endo Reports fatigue and Denies palpitations Physical exam (Primary Care) Vital Signs: Last Vital Signs Pulse 82 07/30/23 16:59 BP 180/100 H 07/30/23 17:42 Pulse Ox 97 07/30/23 16:59 Oxygen Delivery Method Room Air 07/30/23 16:59 BMI result Body Mass Index 26.0 Tobacco/Smoking Status: Tobacco use Status Tobacco use date assessed 07/30/23 07/30/23 17:09 Patient Tobacco Use Status Former Tobacco user 06/17/24 16:59 Tobacco use type Cigarette 07/30/23 16:59 e-Cigarette/Vaping Use Never Used 07/30/23 16:59 PHQ-9: PHQ-9 Score PHQ-9: Total score 0 07/30/23 17:30 Depression Screening Interpretation: Negative Thrive Assessment: Date of Thrive Assessment Date Thrive assessed 07/30/23 07/30/23 17:09 Currently or been in a relationship where the following occur: no concerns reported Const General: no acute distress and alert HENMT Ears: TM's normal bilaterally and EAC's normal Throat: Yes posterior oropharynx normal and Yes tonsils normal (no TP congestion) Neck Neck: Yes no lymphadenopathy and Yes supple Thyroid: Thyroid normal Resp Auscultation: clear to auscultation bilaterally, no rales and no wheezes Cardio Rate: regular rate Rhythm: regular rhythm Heart sounds: no murmurs GI Palpation (GI): Soft to palpation and nontender Auscultation: normal bowel sounds General: Yes no CVA tenderness Back/Spine/Pelvis Back: no CVA tenderness Thoracic/Lumbar Spine: No lumbar spinal tenderness Skin Rashes: no rashes Neuro Other: (+) Tinel's sign and Phalen's sign bilaterally Extrem General: Yes no clubbing, cyanosis or edema Results Reviewed Results Reviewed: Laboratory Tests 07/26/23 07/26/23 09:37 09:39 WBC 4.9 Hgb 12.3 Hct 36.0 L Plt Count 272 Sodium 138 Potassium 3.9 Creatinine 0.76 Estimated GFR > 60 Fasting Glucose 103 H Hemoglobin A1c % 5.5 Calcium 9.8 AST 19 ALT 21 Triglycerides 66 Cholesterol 179 LDL Cholesterol, Calc 110 H HDL Cholesterol 56 25-OH Vitamin D Total 25.9 L TSH 0.63 Ur Specific [place] 1.020 Urine Protein Negative Urine Glucose (UA) Negative Urine Blood Negative Urine Nitrite Negative Ur Leukocyte Esterase Trace H Assessment and Plan Assessment & Plan (1) Benign essential hypertension: Code(s): I10 - Essential (primary) hypertension Plan: Her BP is currently very high again and even her systolic BP readings at home lately have been elevated as (per patient) they have been running higher than 140 to 145 mm consistently Reinforced low sodium diet - goal is systolic BP of at least 140 mm or less Continue Furosemide 40 mg QD Patient self-discontinued her Losartan 50 mg a few weeks ago due to frequent arthralgia, myalgia and fatigue and she was attributing these to her BP med at the time She admits that her symptoms have subsided somewhat since she stopped taking Losartan but these have not really completely resolved She was on Amlodipine 10 mg QD in the past but she stopped taking it when she started noticing increasing swelling of her legs and feet Will try starting her on 2.5 mg of Amlodipine QD for now to try to get her BP controlled better Advised that she may be able to avoid the same side effect that she had previously on the lower dose and reminded her that she is also on Furosemide, which should also help with any edema that she will experience from Amlodipine She is also reminded to continue eating at least 1 banana a day while she is on Furosemide to help offset her potassium loss (2) Pure hypercholesterolemia: Code(s): E78.00 - Pure hypercholesterolemia, unspecified Plan: Results of her labs done a few days ago reviewed and discussed with patient - advised that her cholesterol levels appear to have improved again slightly from previous Reinforced low cholesterol diet Continue Pravastatin 20 mg QD Will recheck her labs and fasting lipids in 4 months for follow up (3) Impaired fasting glucose: Code(s): R73.01 - Impaired fasting glucose Plan: Her FBS was slightly elevated at 103 mg/dl but her HgbA1c remained normal at 5.5% on her labs done a few days ago Reinforced low calorie diet/exercise as tolerated Will continue to monitor this regularly (4) Vitamin D deficiency: Code(s): E55.9 - Vitamin D deficiency, unspecified Plan: Continue Vitamin D3 2000 units QD (5) Carpal tunnel syndrome, bilateral: Code(s): G56.03 - Carpal tunnel syndrome, bilateral upper limbs Plan: EMG and NCV done back in June 2022 confirmed (+) moderate CTS bilaterally She is now scheduled for right carpal tunnel release surgery with Dr. Remington monzon at [place] in a couple of days on 08/01/2023 She will then have her left CTS surgery done in a couple of months on 09/26/2023 (6) Osteopenia: Code(s): M85.80 - Other specified disorders of bone density and structure, unspecified site Qualifiers: Osteopenia location: multiple sites Qualified Code(s): M85.89 - Other specified disorders of bone density and structure, multiple sites Plan: BMD done back in January 2019 revealed (+) osteopenia Patient had her BMD done in 2020 through a [facility] screening - BMD was reportedly at 0.6 g/cm2 (was at 0.738 g/cm2 in the left hip in 2019) Patient is encouraged to continue with daily calcium and Vitamin D supplements and regular exercise as tolerated; fall precautions again reinforced Will recheck BMD again in 1 to 2 years for follow up (7) Nocturnal leg cramps: Code(s): G47.62 - Sleep related leg cramps Plan: May be due to muscle fatigue; patient is not anemic and her electrolyte levels are normal on her recent labs Continue OTC Magnesium oxide 400 mg Q PM (8) Memory impairment: Code(s): R41.3 - Other amnesia Plan: She has been seen and evaluated by neurology for this issue - is likely due to mild cognitive impairment MRI of the brain done back in January 2021 revealed mild to moderate chronic microangiopathy and 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 Chronic lacunar infarcts within the cerebellar hemispheres bilaterally are noted. No acute findings were seen. Initial CT of the head revealed the chronic infarct within the right occipital lobe seen on previous MRI. There are no intracranial hemorrhage or large acute infarction and background changes of chronic microangiopathy were noted. CTA of the head and neck revealed less than 50% stenosis seen involving the bilateral proximal internal carotid arteries related to calcific plaques. Vertebral arteries are patent. CTA of the head showed a right CATERPILLAR DRIVER segment with poor opacification of the P2 and more distal segments likely reflecting severe stenosis or residuals thrombotic occlusion in the setting of prior infarction. Left P2 segment demonstrates moderate stenosis. Basilar artery and vertebral arteries are patent. Anterior circulation is patent Patient does not want to go back and follow up with neurology again and also declined offer to refer her to a different neurologist and/or vascular surgeon for further management - states that she will call for referral if she changes her mind on this (9) Insomnia: Code(s): G47.00 - Insomnia, unspecified Qualifiers: Insomnia type: unspecified Qualified Code(s): G47.00 - Insomnia, unspecified Plan: Sleep hygiene reinforced She has tried OTC Melatonin previously up to 10 mg with NO relief; thinks that her trouble sleeping has more to do with anxiety as her older sister was diagnosed with bladder CA and is currently not doing too well at a detention in [place] She was started previously on Doxepin 25 mg Q HS PRN but patient apparently did not garbage pick up man her Rx and has gone back to taking Melatonin with variable results (10) Overweight (BMI 25.0-29.9): Code(s): E66.3 - Overweight Plan: Reinforced diet/exercise as tolerated/lose weight Plan Follow up in 4 months Orders: Orders Complete Blood Count Auto Diff 4 Months D64.9 - Anemia, unspecified Vitamin D 25-OH Total 4 Months E55.9 - Vitamin D deficiency, unspecified Comprehensive [place]. Panel Fast 4 Months E78.00 - Pure hypercholesterolemia, unspecified Lipid Panel 4 Months E78.00 - Pure hypercholesterolemia, unspecified Medications: New amlodipine 2.5 mg PO DAILY 30 days 30 tabs 2RF Coding Level of Care Code Est Pt Level 4 (55618) Complex EM visit Add On G2211 Diagnoses Benign essential hypertension I10 Pure hypercholesterolemia E78.00 Impaired fasting glucose R73.01 Vitamin D deficiency E55.9 Carpal tunnel syndrome, bilateral G56.03 Osteopenia of multiple sites M85.89 Osteopenia location: multiple sites Nocturnal leg cramps G47.62 Memory impairment R41.3 Insomnia, unspecified type G47.00 Insomnia type: unspecified Overweight (BMI 25.0-29.9) E66.3 Additional Codes BRYON-7 Assessment Billing - BRYON-7 Assessment Tool: BRYON-7 Assessment [id number] ([id number])
[2023-07-30 17:42] VITALS: BP 180/100
== END 2023-07-30 17:46 | disposition home or self-care (01) ==
PROVIDERS: PCP Internal Medicine; Visit Provider Internal Medicine
DX: I10 Essential (primary) hypertension (principal); E78.00 Pure hypercholesterolemia, unspecified; R73.01 Impaired fasting glucose; E55.9 Vitamin D deficiency, unspecified; G56.03 Carpal tunnel syndrome, bilateral upper limbs; M85.89 Other specified disorders of bone density and structure, multiple sites; G47.62 Sleep related leg cramps; R41.3 Other amnesia; G47.00 Insomnia, unspecified; E66.3 Overweight
CPT/HCPCS: 99214; G2211

== ENCOUNTER 2023-10-18 07:09 | Outpatient (REF) | payer MEDICARE, SELFPAY ==
[2023-10-18 07:57] LABS: Basophils Absolute Auto 0.1 X10*3/uL (0.0-0.2); Basophils Percent Auto 0.9 % (0-2); Eosinophils Absolute Auto 0.2 X10*3/uL (0.0-0.4); Eosinophils Percent Auto 3.1 % (0-4); Hematocrit 37.4 % (37.0-47.0); Hemoglobin 12.3 g/dl (12.0-16.0); Imm Gran Abs Auto 0.01 X10*3/uL (0.00-0.03); Imm Gran Pct Auto 0.2 % (0.0-0.4); Lymphocytes Absolute Auto 2.2 X10*3/uL (1.2-4.9); Lymphocytes Percent Auto 40.3 % (20-40); MANUAL DIFF FLAG SCAN; Mean Corpuscular HGB Conc 32.9 g/dl (31.0-35.0); Mean Corpuscular Hemoglobin 30.8 pg (27.0-33.0); Mean Corpuscular Volume 93.5 fL (80.0-98.0); Mean Platelet Volume 8.9 fL (9.4-12.3); Monocytes Absolute Auto 0.5 X10*3/uL (0.1-1.2); Monocytes Percent Auto 8.7 % (2-11); Neutrophils Absolute Auto 2.6 x10*3/uL (2.0-8.3); Neutrophils Percent Auto 46.8 % (45-73); Platelet Count 293 X10*3/uL (160-400); Red Cell Distribution Width 12.9 % (11.0-16.0); SCAN SMEAR FLAG 1; White Blood Count 5.5 X10*3/uL (4.8-10.8)
[2023-10-18 08:12] LABS: Alanine Aminotransferase 30 U/L (0-31); Alkaline Phosphatase 78 U/L (39-117); Anion Gap 10 (12-20); Aspartate Amino Transferase 24 U/L (5-31); Bilirubin Total 0.7 mg/dL (0.0-1.0); Blood Urea Nitrogen 11 mg/dL (9-16); Calcium 9.9 mg/dL (8.4-10.2); Carbon Dioxide 26 mmol/L (22-29); Chloride 107 mmol/L (96-108); Cholesterol 205 mg/dL (<200); Estimated Glomerular Filt Rate > 60; Glucose Fasting 105 mg/dL (60-99); HDL Cholesterol 68 mg/dL (>40); LDL Cholesterol Calculated 124 mg/dL (<100); Potassium 3.9 mmol/L (3.3-5.1); Sodium 139 mmol/L (135-145); Total Protein 6.5 g/dL (6.5-8.0); Triglycerides 68 mg/dL (<150)
[2023-10-18 08:30] LABS: Appearance Urine Cloudy; Color Urine Yellow; Glucose Urine UA Negative (Negative); Leukocyte Esterase Urine Negative (Negative); Nitrite Urine Negative (Negative); Specific Gravity - Urine 1.015 (1.005-1.025); Urine Blood Negative (Negative); Urine Ketones Negative (Negative); Urine Protein Negative (Neg-Trace)
[2023-10-18 08:36] LABS: SLIDE REVIEW VERIFIED
== END 2023-10-18 07:10 | disposition home or self-care (01) ==
LOC: HO.LAB 07:09
PROVIDERS: PCP Internal Medicine; Visit Provider Internal Medicine
DX: R30.0 Dysuria (principal); D64.9 Anemia, unspecified; E78.00 Pure hypercholesterolemia, unspecified; E55.9 Vitamin D deficiency, unspecified
CPT/HCPCS: 36415; 80053; 80061; 81003; 82306; 85025

== ENCOUNTER 2023-10-18 11:24 | Outpatient (AMB) | payer MEDICARE, SELFPAY ==
[2023-10-18 11:25] VITALS: BP 162/80; PULSE 78; O2SAT 96; BMI 27.2
--- NOTE | 2023-10-18 11:25 | MHC.PC.OV ---
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 Accompanied by: Self / Same As Patient Allergies iohexol [From Omnipaque] Adverse Reaction (Verified 10/18/23 11:54) Hives Medication List - Last Reconciled 10/18/23 by Ronnie Parr MD albuterol sulfate 90 mcg/actuation 2 puffs inhalation Q6H PRN amlodipine 2.5 mg PO DAILY 30 days aspirin 81 mg PO DAILY cholecalciferol (vitamin D3) 50 mcg PO DAILY 90 days cyclosporine 0.05% (Restasis) drps ophthalmic (eye) furosemide 20 mg (1/2 x 40 mg) PO DAILY losartan 50 mg PO DAILY 90 days magnesium oxide 400 mg PO DAILY 90 days mecobalamin (vitamin B12) 1,000 mcg sublingual DAILY pravastatin 40 mg PO DAILY 90 days Tobacco use date assessed: 10/18/23 Fall risk assessment: No Falls in past year Last assessed Fall Risk: 10/18/23 Dental Screening Dental Screen Date: 10/18/23 Did you have a dental visit in the last 12 months?: Yes Did you have a dental problem in the last 6 months where you did not have access to dental care?: No Was dental information given to patient?: Patient has dentist HPI 4 month f/u / memory loss HPI Details Patient comes in today for her follow up visit States that she feels okay but again relates concerns about her memory - states that she has been getting more and more forgetful over the past few months Recalls seeing neurology (Dr. Lopez) a few years ago and was diagnosed with dementia, which she now admits she was not too happy about and she has not been back to see Dr. Lopez since 2021 She denies any headaches or dizziness Denies any chest pains, no SOB No nausea/vomiting, no abdominal pain No change in bowel habits noted Notes that her blood pressure is high now but states that she has not yet taken her BP meds this morning as she thought that she should have her BP checked more accurately if she holds her meds until after she is seen for her follow up appointment She also admits that she has not been taking her Furosemide recently and on further questioning, it also appears that she does not even remember she has Losartan 50 mg as well to take everyday so it appears that she has only been taking her Amlodipine 2.5 mg QD recently for her blood pressure Thinks now that she stopped taking her Losartan a while back after reading something concerning about the side effects of Losartan online She had her follow up labs done earlier today - to discuss her results [facility] Medical History (Updated 10/18/23 @ 12:03 by Ronnie Parr MD) Vitamin D deficiency Insomnia Memory impairment Osteopenia Arthralgia Myalgia Blurring of vision Overweight (BMI 25.0-29.9) Benign essential hypertension Pure hypercholesterolemia Surgical History History of bunionectomy Family History Father No problems noted. Mother No problems noted. Social History [facility] Alcohol intake: current Alcohol intake frequency: holidays/special occasions only Alcohol type: wine Patient Tobacco Use Status: Former Tobacco user Tobacco use type: Cigarette e-Cigarette/Vaping Use: Never Used Second Hand Smoke Exposure: Yes service: No Current occupational status: retired Cognitive needs: No Hearing needs: No Vision needs: Yes (reading glasses) Questionnaire PHQ-9 Over the last 2 weeks, how often have you been bothered by any of the following problems? 1. Little interest or pleasure in doing things: not at all 2. Feeling down, depressed, or hopeless: not at all 3. Trouble falling or staying asleep, or sleeping too much: not at all 4. Feeling tired or having little energy: not at all 5. Poor appetite or overeating: not at all 6. Feeling bad about yourself - or that you are a failure or have let yourself or your family down: not at all 7. Trouble concentrating on things, such as reading the newspaper or watching television: not at all 8. Moving or speaking so slowly that other people could have noticed. Or the opposite - being so fidgety or restless that you have been moving around a lot more than usual: not at all 9. Thoughts that you would be better off or of hurting yourself in some way: not at all Total score: 0 Depression Screening Interpretation: Negative Depression Screening Done: Yes 04380 - PHQ-9 Billing: Yes Source: Developed by Drs. Jorge Newton, Kelley Brown, Wilber Live and colleagues, with an educational ewelina from [email or web address]. Thrive Questionnaire Date Thrive assessed: 10/18/23 I am a: Patient What is your living situation today?: I have a steady place to live Within the past 12 months, did the food you bought not last and you didn't have the money to get more?: Never true Within the past 12 months, did you worry whether your food would run out before you got money to buy more?: Never true Do you have trouble paying for medicines?: No Do you have trouble getting transportation to medical appointments?: No Do you have trouble paying your heating and electricity bill?: No Do you have trouble taking care of your child, family member or friend?: No Do you have trouble with day-to-day activities such as bathing, preparing meals, shopping, managing finances, etc.?: No Are you currently unemployed and looking for a job?: No Are you interested in more education?: No Please select the resources that you would like help with: None Currently or been in a relationship where the following occur: No concerns reported THRIVE Score: 0 AUDIT C Alcohol Use Questionnaire (AUDIT-C) 1. How often do you have a drink containing alcohol?: Monthly or less 2. How many drinks containing alcohol do you have on a typical day when you are drinking?: 1 or 2 3. How often do you have six or more drinks on one occasion?: Never Total Score: 1 Score Reviewed/Action Taken: Yes BRYON-7 AMB Questionnaire BRYON-7 Date BRYON - 7 assessed: 10/18/23 Feeling nervous, anxious, or on edge: 0 = Not at all Not being able to stop or control worryin = Not at all Worrying too much about different things: 0 = Not at all Trouble relaxin = Not at all Being so restless that it is hard to sit still: 0 = Not at all Becoming easily annoyed or irritable: 0 = Not at all Feeling afraid as if something awful might happen: 0 = Not at all Total BRYON-7 score (0-4 normal; 5-9 mild; 10-14 moderate; 15-21 severe): 0 Source: Developed by Drs. Jorge Newton, Kelley Brown, Wilber Live and colleagues, with an educational ewelina from [email or web address]. BRYON-7 Assessment Billing BRYON-7 Assessment Tool: BRYON-7 Assessment 75482 Review of Systems Const Denies chills, Reports difficulty sleeping, Reports fatigue, Denies fever(s) and Denies headache(s) Eyes Denies blurry vision and Reports dry eyes ENT Denies dysphagia, Denies dizziness, Reports dry mouth (recurrent), Denies otalgia, Denies headache(s), Denies neck pain, Denies odynophagia and Denies sore throat Card Denies chest pain, Denies leg edema, Denies palpitations and Denies dyspnea Resp Denies cough and Denies dyspnea GI Denies abdominal pain, Denies constipation, Denies dysphagia, Denies heartburn, Denies diarrhea, Denies nausea, Denies odynophagia and Denies vomiting Denies difficulty voiding, Reports nocturia, Denies dysuria and Denies urinary urgency Musc Reports back pain (on and off, over the lower back), Reports arthralgias (diffuse - involving multiple joints), Reports muscle cramps (on and off in the legs, especially at night), Denies neck pain, Reports numbness (frequent, in the left hand) and Reports tingling (recurrent, in the left hand) Skin/Breast Denies rash Neuro Denies dizziness, Denies headache(s), Reports memory loss (feels that this is getting worse lately), Reports numbness (frequent, in the left hand) and Reports tingling (recurrent, in the left hand) Psych Reports memory loss (feels that this is getting worse lately) Endo Reports fatigue and Denies palpitations Physical exam (Primary Care) Vital Signs: Last Vital Signs Pulse 78 10/18/23 11:25 BP 162/80 H 10/18/23 11:25 Pulse Ox 96 10/18/23 11:25 Oxygen Delivery Method Room Air 10/18/23 11:25 BMI result Body Mass Index 27.2 Tobacco/Smoking Status: Tobacco use Status Tobacco use date assessed 10/18/23 10/18/23 11:35 Patient Tobacco Use Status Former Tobacco user 10/18/23 11:35 Tobacco use type Cigarette 10/18/23 11:35 e-Cigarette/Vaping Use Never Used 10/18/23 11:35 PHQ-9: PHQ-9 Score PHQ-9: Total score 0 10/18/23 11:35 Depression Screening Interpretation: Negative Thrive Assessment: Date of Thrive Assessment Date Thrive assessed 10/18/23 10/18/23 11:35 Currently or been in a relationship where the following occur: No concerns reported Const General: no acute distress and alert HENMT Ears: TM's normal bilaterally and EAC's normal Throat: Yes posterior oropharynx normal and Yes tonsils normal (no TP congestion) Neck Neck: Yes no lymphadenopathy and Yes supple Thyroid: Thyroid normal Resp Auscultation: clear to auscultation bilaterally, no rales and no wheezes Cardio Rate: regular rate Rhythm: regular rhythm Heart sounds: no murmurs GI Palpation (GI): Soft to palpation and nontender Auscultation: normal bowel sounds General: Yes no CVA tenderness Back/Spine/Pelvis Back: no CVA tenderness Thoracic/Lumbar Spine: No lumbar spinal tenderness Skin Rashes: no rashes Extrem General: Yes no clubbing, cyanosis or edema Results Reviewed Results Reviewed: Laboratory Tests 10/18/23 10/18/23 07:18 07:20 WBC 5.5 Hgb 12.3 Hct 37.4 Plt Count 293 Sodium 139 Potassium 3.9 Creatinine 0.83 Estimated GFR > 60 Fasting Glucose 105 H Calcium 9.9 AST 24 ALT 30 Triglycerides 68 Cholesterol 205 H LDL Cholesterol, Calc 124 H HDL Cholesterol 68 25-OH Vitamin D Total 40.0 Ur Specific [place] 1.015 Urine Protein Negative Urine Glucose (UA) Negative Urine Blood Negative Urine Nitrite Negative Ur Leukocyte Esterase Negative Assessment and Plan Assessment & Plan (1) Memory impairment: Code(s): R41.3 - Other amnesia Plan: Patient was diagnosed with dementia by neurology a few years ago but she did not follow up again since as she was not happy with her diagnosis Her brain MRI done back on 02/02/2021 revealed (+) mild to moderate chronic microangiopathy and 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 Chronic lacunar infarcts within the cerebellar hemispheres bilaterally. Otherwise, there are no acute findings Head/neck CTA done in February 2021 revealed that the right VIDEO PRODUCTION INTERN segment demonstrate poor opacification of the P2 and more distal segments likely reflecting severe stenosis or residual thrombotic occlusion in the setting of prior infarction. Left P2 segment demonstrates moderate stenosis. Basilar artery and vertebral arteries are patent. Anterior circulation is patent She was advised on subsequent follow up that she has intracranial atherosclerosis and an old CVA and to take her BP meds as prescribed to help get her BP under better control She was also advised to start taking low dose Aspirin 81 mg QD (which she is still currently on) and also low dose statin to help lower her cholesterol Because of her apparently progressing memory loss lately, will refer her back to neurology for follow up and further evaluation - reminded again that her memory issues are likely due to a combination of dementia and atherosclerosis/cerebrovascular events (2) Benign essential hypertension: Code(s): I10 - Essential (primary) hypertension Plan: Her BP is currently high (again) Reinforced low sodium diet - goal is systolic BP of at least 140 mm or less Continue Furosemide 40 mg QD Patient now recalls she self-discontinued her Losartan 50 mg a few months ago due to frequent arthralgia, myalgia and fatigue and she was attributing these to her BP med at the time She admits that her symptoms have subsided somewhat since she stopped taking Losartan but these have not really completely resolved She was also on Amlodipine 10 mg QD in the past but she stopped taking it when she started noticing increasing swelling of her legs and feet We started her back on 2.5 mg of Amlodipine QD at her last visit and she appears to be tolerating this so far She also takes Furosemide 20 mg Q AM but admits that she has also not taken this in a while now Have advised patient that she should take all three meds (Losartan 50 mg QD, Amlodipine 2.5 mg QD and Furosemide 20 mg Q AM) daily in the morning to be able to get her BP better controlled and that poorly-controlled on uncontrolled BP is also likely contributing to the progression of her recent memory decline She is instructed again to try checking/monitoring her blood pressure regularly and will try getting her back in 4 to 6 weeks for follow up of her blood pressure (3) Pure hypercholesterolemia: Code(s): E78.00 - Pure hypercholesterolemia, unspecified Plan: Results of her labs done earlier today reviewed and discussed with patient - advised that her cholesterol levels, especially her LDL cholesterol, appear to have increased slightly from previous Reinforced low cholesterol diet Continue Pravastatin 20 mg QD (4) Impaired fasting glucose: Code(s): R73.01 - Impaired fasting glucose Plan: Her FBS was again slightly elevated at 105 mg/dl on her labs done this morning but her HgbA1c remained normal at 5.5% when checked a few months ago Reinforced low calorie diet/exercise as tolerated Will continue to monitor this regularly (5) Vitamin D deficiency: Code(s): E55.9 - Vitamin D deficiency, unspecified Plan: Continue Vitamin D3 2000 units QD (6) Carpal tunnel syndrome, bilateral: Code(s): G56.03 - Carpal tunnel syndrome, bilateral upper limbs Plan: EMG and NCV done back in June 2022 confirmed (+) moderate CTS bilaterally She underwent right carpal tunnel release surgery with Dr. Macedo at [place] on 08/01/2023 with improvement of her symptoms It was also planned to have her get left CTS surgery done last month on 09/26/2023 but this appear to have been postponed at this time Follow up with Dr. Macedo as scheduled (7) Osteopenia: Code(s): M85.80 - Other specified disorders of bone density and structure, unspecified site Qualifiers: Osteopenia location: multiple sites Qualified Code(s): M85.89 - Other specified disorders of bone density and structure, multiple sites Plan: BMD done back in January 2019 revealed (+) osteopenia Patient had her BMD done in 2020 through a [facility] screening - BMD was reportedly at 0.6 g/cm2 (was at 0.738 g/cm2 in the left hip in 2019) Patient is encouraged to continue with daily calcium and Vitamin D supplements and regular exercise as tolerated; fall precautions again reinforced Will recheck BMD again in 2 to 3 years for follow up (8) Nocturnal leg cramps: Code(s): G47.62 - Sleep related leg cramps Plan: May be due to muscle fatigue; patient is not anemic and her electrolyte levels are normal on her recent labs Continue OTC Magnesium oxide 400 mg Q PM (9) Insomnia: Code(s): G47.00 - Insomnia, unspecified Qualifiers: Insomnia type: unspecified Qualified Code(s): G47.00 - Insomnia, unspecified Plan: Sleep hygiene reinforced She has tried OTC Melatonin previously up to 10 mg with NO relief; thinks that her trouble sleeping has more to do with anxiety as her older sister was diagnosed with bladder CA and is currently not doing too well at a group home in [place] She was started previously on Doxepin 25 mg Q HS PRN but 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 and has gone back to taking Melatonin with variable results (10) Overweight (BMI 25.0-29.9): Code(s): E66.3 - Overweight Plan: Reinforced diet/exercise as tolerated/lose weight Plan Follow up in 4 to 6 weeks to see how her blood pressure is responding/doing Orders: Referrals Neurology Referral R41.3 - Other amnesia Coding Level of Care Code Est Pt Level 4 (14936) Diagnoses Memory impairment R41.3 Benign essential hypertension I10 Pure hypercholesterolemia E78.00 Impaired fasting glucose R73.01 Vitamin D deficiency E55.9 Carpal tunnel syndrome, bilateral G56.03 Osteopenia of multiple sites M85.89 Osteopenia location: multiple sites Nocturnal leg cramps G47.62 Insomnia, unspecified type G47.00 Insomnia type: unspecified Overweight (BMI 25.0-29.9) E66.3 Additional Codes BRYON-7 Assessment Billing - BRYON-7 Assessment Tool: BRYON-7 Assessment [id number] ([id number])
== END 2023-10-18 12:20 | disposition home or self-care (01) ==
PROVIDERS: PCP Internal Medicine; Visit Provider Internal Medicine
DX: R41.3 Other amnesia (principal); I10 Essential (primary) hypertension; E78.00 Pure hypercholesterolemia, unspecified; R73.01 Impaired fasting glucose; E55.9 Vitamin D deficiency, unspecified; G56.03 Carpal tunnel syndrome, bilateral upper limbs; M85.89 Other specified disorders of bone density and structure, multiple sites; G47.62 Sleep related leg cramps; G47.00 Insomnia, unspecified; E66.3 Overweight
CPT/HCPCS: 99214

== ENCOUNTER 2023-11-19 12:41 | Outpatient (REF) | payer MEDICARE, SELFPAY ==
[2023-11-19 13:32] LABS: Influenza A PCR NEGATIVE (Negative); Influenza B PCR NEGATIVE (Negative); Resp Syncy Virus RNA Qual PCR NEGATIVE (Negative); SARS COV2 PCR INHOUSE NEGATIVE (Negative)
== END 2023-11-19 12:42 | disposition home or self-care (01) ==
LOC: HO.LAB 12:41
PROVIDERS: PCP Internal Medicine; Visit Provider Internal Medicine
DX: J98.8 Other specified respiratory disorders (principal); R05.9 Cough, unspecified; R09.89 Other specified symptoms and signs involving the circulatory and respiratory systems; J02.9 Acute pharyngitis, unspecified; Z20.822 Contact with and (suspected) exposure to COVID-19
CPT/HCPCS: 0241U

== ENCOUNTER 2024-02-16 09:31 | Outpatient (AMB) | payer MEDICARE, SELFPAY ==
--- NOTE | 2024-02-16 10:51 | AM.OFFWIN_ITS ---
Intake Vital Signs 02/16/24 11:00 Weight 165 lb 8 oz BP 140/90 H Blood Pressure Location Lt brachial Position Sitting Pulse 82 Pulse Source Pulse Oximeter Temp 98.0 F Temp Source Oral Pulse Oximetry (%) 98 Oxygen Delivery Method Room Air Intake Visit Reasons: EP sore throat, cough, sneezing, running nose Intake Note: Patient here for loss of voice, cough, phlegm,sneezing and runny nose for about 2-3 days Patient Tobacco Use Status: Former Tobacco user Allergies iohexol [From Omnipaque] Adverse Reaction (Verified 02/16/24 11:01) Hives HPI EP sore throat, cough, sneezing, running nose HPI Details Patient is a 79-year-old female comes to the walk-in clinic complaining of a few days of nasal congestion, sneezing, runny nose, cough, and hoarse voice. She has not yet tested for COVID at home. She denies fever or chills, nausea vomiting or diarrhea, dizziness or vertigo, headache, weakness, myalgias or malaise, chest pain or pressure, shortness of breath, sore throat, ear pain, discharge from the ears, hearing loss, or other significant associated symptoms. [facility] Medical History Vitamin D deficiency Insomnia Memory impairment Osteopenia Arthralgia Myalgia Blurring of vision Overweight (BMI 25.0-29.9) Benign essential hypertension Pure hypercholesterolemia Surgical History History of bunionectomy Family History Father No problems noted. Mother No problems noted. Social History Housing: Condominium Alcohol intake: current Alcohol intake frequency: holidays/special occasions only Alcohol type: wine Patient Tobacco Use Status: Former Tobacco user Tobacco use type: Cigarette e-Cigarette/Vaping Use: Never Used Second Hand Smoke Exposure: Yes service: No Current occupational status: retired Cognitive needs: No Hearing needs: No Vision needs: Yes (reading glasses) Review of Systems Const All systems reviewed & are unremarkable except as noted in HPI and below Physical Exam Vital Signs: Last Vital Signs Temp 98.0 F 02/16/24 11:00 Pulse 82 02/16/24 11:00 BP 140/90 H 02/16/24 11:00 Pulse Ox 98 02/16/24 11:00 Oxygen Delivery Method Room Air 02/16/24 11:00 Const General: cooperative, healthy appearing, comfortable, no acute distress, alert, awake, Physically active and well groomed; No anxious, diaphoretic, ill appearing, intoxicated appearing, poor hygiene or tired appearing Nutritional Appearance: average body habitus Orientation/consciousness: oriented to person Limitations: no limitations HEENT Head: Yes normal to inspection, Yes normocephalic and Yes atraumatic Ears: hearing grossly normal bilaterally, external ears normal, EAC's normal and TM abnormal (right) erythematous and with fluid behind the TM General nose exam: Normal external nose present, No nasal polyps present, Abnorm al mucous membranes and turbinates present and Nasal discharge present Face and sinus: Yes normal facial exam, Yes sinuses nontender and Yes face symmetric Mouth: Normal oral and palatal mucosa present, lip normal and tongue normal Throat: No peritonsillar mass, No postnasal drainage, No uvular edema and No cobblestoning Eyes General: appearance normal, both eyes and all related structures Neck Neck: Yes normal visual inspection, Yes no lymphadenopathy, Yes trachea midline, Yes supple and No anterior neck swelling Resp Effort & Inspection: normal respiratory effort, able to speak in complete sentences, no audible wheezes, no cough, no grunting, not labored, no nasal flaring, no retractions and symmetric chest movement Auscultation: clear to auscultation bilaterally, no crackles, no rales, no rhonchi, no wheezes, lung sounds not diminished and No rub present Cardio Palpation: normal PMI Rate: regular rate Rhythm: regular rhythm Heart sounds: S1 normal heart sound present and S2 normal heart sound present Skin Other: Good color, warm and dry Neuro General: oriented to person Psych Appearance: grossly normal Mental Status: mental status grossly normal Speech and movement: Normal speech and movement present Affect: normal affect Attitude: cooperative Thought process: Normal thought process present Insight: Good insight present (Psych) Judgement: Good judgement present (Psych) Assessment & Plan Assessment & Plan (1) Otitis media: Code(s): H66.90 - Otitis media, unspecified, unspecified ear Qualifiers: Chronicity: acute Laterality: right Recurrence: non-recurrent Spontaneous tympanic membrane rupture: without spontaneous rupture Otitis media type: suppurative Qualified Code(s): H66.001 - Acute suppurative otitis media without spontaneous rupture of ear drum, right ear Plan Patient is a 79-year-old female comes to the walk-in clinic complaining of a few days of nasal congestion, sneezing, runny nose, cough, and hoarse voice. She has not yet tested for COVID at home. We would appear she has a viral upper respiratory infection, however right TM is injected, so will write her for a course of Augmentin, and benzonatate to help with the cough. Pending flu COVID and RSV results. She will follow up if symptoms persist or worsen, or go to the emergency department with worrisome symptoms. Orders: Orders SARS-CoV2/FLU/RSV 02/16/24 J06.9 - Acute upper respiratory infection, unspecified Medications: New amoxicillin-pot clavulanate 875-125 mg 1 tab PO BID 14 tabs 0RF 7 days benzonatate 100 mg PO BID-TID PRN 30 caps 0RF cough Coding Level of Care Code Est Pt Level 4 (47709) Diagnoses Non-recurrent acute suppurative otitis media of right ear without spontaneous rupture of tympanic membrane H66.001 Chronicity: acute Laterality: right Recurrence: non-recurrent Spontaneous tympanic membrane rupture: without spontaneous rupture Otitis media type: suppurative
[2024-02-16 11:00] VITALS: BP 140/90; PULSE 82; TEMP 36.7; O2SAT 98
== END 2024-02-16 11:45 | disposition home or self-care (01) ==
PROVIDERS: PCP Internal Medicine; Visit Provider Physician Assistant Medical
DX: H66.001 Acute suppurative otitis media without spontaneous rupture of ear drum, right ear (principal)

== ENCOUNTER 2024-02-16 09:31 | Outpatient (REF) | payer MEDICARE, SELFPAY ==
[2024-02-16 15:09] LABS: Influenza A PCR NEGATIVE (Negative); Influenza B PCR NEGATIVE (Negative); Resp Syncy Virus RNA Qual PCR NEGATIVE (Negative); SARS COV2 PCR INHOUSE POSITIVE (Negative)
== END 2024-02-16 09:32 | disposition home or self-care (01) ==
LOC: HO.LNP 09:31
PROVIDERS: PCP Internal Medicine; Visit Provider Physician Assistant Medical
DX: J06.9 Acute upper respiratory infection, unspecified (principal); H66.001 Acute suppurative otitis media without spontaneous rupture of ear drum, right ear
CPT/HCPCS: 0241U; 99212

== ENCOUNTER → 2024-03-20 11:54 | Outpatient (BNVA) | payer MEDICARE, SELFPAY | PROVIDERS: PCP Internal Medicine; Visit Provider Internal Medicine | DX: F01.50 Vascular dementia, unspecified severity, without behavioral disturbance, psychotic disturbance, mood disturbance, and anxiety (principal); I10 Essential (primary) hypertension; E78.00 Pure hypercholesterolemia, unspecified; R73.01 Impaired fasting glucose; E55.9 Vitamin D deficiency, unspecified; G56.03 Carpal tunnel syndrome, bilateral upper limbs; M85.89 Other specified disorders of bone density and structure, multiple sites; G47.62 Sleep related leg cramps; G47.00 Insomnia, unspecified; F32.A Depression, unspecified; E66.3 Overweight | CPT/HCPCS: 96127; 99212 ==

== ENCOUNTER → 2024-03-20 11:54 | Outpatient (AMB) | payer MEDICARE, SELFPAY ==
--- NOTE | 2024-03-20 11:56 | A.OFFPC_ITS ---
Vital Signs 03/20/24 11:56 Height 5 ft 6 in Weight 162 lb 4 oz BMI 26.2 BP 136/86 Blood Pressure Location Lt brachial Position Sitting Pulse 85 Pulse Source Pulse Oximeter Pulse Oximetry (%) 97 Oxygen Delivery Method Room Air Intake Visit Reasons: bp medication Seam Stay Stitcher Required: No Accompanied by: Self / Same As Patient Allergies iohexol [From Omnipaque] Adverse Reaction (Verified 03/20/24 12:28) Hives Medication List - Last Reconciled 03/20/24 by Ronnie Parr MD albuterol sulfate 90 mcg/actuation 2 puffs inhalation Q6H PRN amlodipine 2.5 mg PO DAILY aspirin 81 mg PO DAILY cholecalciferol (vitamin D3) 50 mcg PO DAILY 90 days cyclosporine 0.05% (Restasis) 1 drp ophthalmic (eye) DAILY losartan 50 mg PO DAILY 90 days magnesium oxide 400 mg PO DAILY 90 days mecobalamin (vitamin B12) 1,000 mcg sublingual DAILY pravastatin 40 mg PO DAILY 90 days Tobacco use date assessed: 03/20/24 Fall risk assessment: No Falls in past year Last assessed Fall Risk: 03/20/24 Dental Screening Dental Screen Date: 03/20/24 Did you have a dental visit in the last 12 months?: Yes Did you have a dental problem in the last 6 months where you did not have access to dental care?: No Was dental information given to patient?: Patient has dentist HPI bp medication HPI Details Patient comes in today for her follow-up visit States that she is concerned about her memory as she feels that she is getting more and more forgetful She has noticed that she has been struggling to remember people's names and faces over the past few months She was seen by Dr. Lopez back in November 2023 and was diagnosed then with vascular dementia She was started on sertraline for depression and trazodone to help her sleep better at night but it does not appear that the patient ever took these 2 medications for any reasonable length of time as she does not really like taking medications if she can avoid them Would like to know if there is anything in terms of supplements or vitamins that she can take that will help improve her memory States that she recently came across some articles about a supplement called pineal cleanse and would like to know if I have any helpful information on this States that physically, she feels okay She denies any headaches or dizziness Denies any chest pains, no shortness of breath No nausea/vomiting, no abdominal pain No change in bowel habits noted [facility] Medical History Vitamin D deficiency Insomnia Memory impairment Osteopenia Arthralgia Myalgia Blurring of vision Overweight (BMI 25.0-29.9) Benign essential hypertension Pure hypercholesterolemia Surgical History History of bunionectomy Family History Father No problems noted. Mother No problems noted. Social History Housing: Condominium Alcohol intake: current Alcohol intake frequency: holidays/special occasions only Alcohol type: wine Patient Tobacco Use Status: Former Tobacco user Tobacco use type: Cigarette e-Cigarette/Vaping Use: Never Used Second Hand Smoke Exposure: Yes service: No Current occupational status: retired Cognitive needs: No Hearing needs: No Vision needs: Yes (reading glasses) Questionnaire PHQ-9 Over the last 2 weeks, how often have you been bothered by any of the following problems? 1. Little interest or pleasure in doing things: not at all 2. Feeling down, depressed, or hopeless: not at all 3. Trouble falling or staying asleep, or sleeping too much: not at all 4. Feeling tired or having little energy: not at all 5. Poor appetite or overeating: not at all 6. Feeling bad about yourself - or that you are a failure or have let yourself or your family down: not at all 7. Trouble concentrating on things, such as reading the newspaper or watching television: not at all 8. Moving or speaking so slowly that other people could have noticed. Or the opposite - being so fidgety or restless that you have been moving around a lot more than usual: not at all 9. Thoughts that you would be better off or of hurting yourself in some way: not at all Total score: 0 Depression Screening Interpretation: Negative Depression Screening Done: Yes 10416 - PHQ-9 Billing: Yes Source: Developed by Drs. Jorge Newton, Kelley Brown, Wilber Live and colleagues, with an educational ewelina from [employer]. Thrive Questionnaire Date Thrive assessed: 03/20/24 I am a: Patient What is your living situation today?: I have a steady place to live Within the past 12 months, did the food you bought not last and you didn't have the money to get more?: Never true Within the past 12 months, did you worry whether your food would run out before you got money to buy more?: Never true Do you have trouble paying for medicines?: No Do you have trouble getting transportation to medical appointments?: No Do you have trouble paying your heating and electricity bill?: No Do you have trouble taking care of your child, family member or friend?: No Do you have trouble with day-to-day activities such as bathing, preparing meals, shopping, managing finances, etc.?: No Are you currently unemployed and looking for a job?: No Are you interested in more education?: No Please select the resources that you would like help with: None Currently or been in a relationship where the following occur: No concerns reported THRIVE Score: 0 AUDIT C Alcohol Use Questionnaire (AUDIT-C) 1. How often do you have a drink containing alcohol?: Monthly or less 2. How many drinks containing alcohol do you have on a typical day when you are drinking?: 1 or 2 3. How often do you have six or more drinks on one occasion?: Never Total Score: 1 Score Reviewed/Action Taken: Yes BRYON-7 AMB Questionnaire BRYON-7 Date BRYON - 7 assessed: 03/20/24 Feeling nervous, anxious, or on edge: 0 = Not at all Not being able to stop or control worryin = Not at all Worrying too much about different things: 0 = Not at all Trouble relaxin = Not at all Being so restless that it is hard to sit still: 0 = Not at all Becoming easily annoyed or irritable: 0 = Not at all Feeling afraid as if something awful might happen: 0 = Not at all Total BRYON-7 score (0-4 normal; 5-9 mild; 10-14 moderate; 15-21 severe): 0 Source: Developed by Kelley Olsen, Wilber Live and colleagues, with an educational ewelina from [employer]. BRYON-7 Assessment Billing BRYON-7 Assessment Tool: BRYON-7 Assessment 59976 Review of Systems Const Denies chills, Reports difficulty sleeping, Reports fatigue, Denies fever(s) and Denies headache(s) ENT Denies dysphagia, Denies dizziness, Denies otalgia, Denies headache(s), Denies neck pain, Denies odynophagia and Denies sore throat Card Denies chest pain, Denies leg edema, Denies palpitations and Denies dyspnea Resp Denies cough and Denies dyspnea GI Denies abdominal pain, Denies constipation, Denies dysphagia, Denies heartburn, Denies diarrhea, Denies nausea, Denies odynophagia and Denies vomiting Denies difficulty voiding, Reports nocturia, Denies dysuria and Denies urinary urgency Musc Reports back pain (on and off, over the lower back), Reports arthralgias (diffuse - involving multiple joints), Reports muscle cramps (on and off in the legs, especially at night), Denies neck pain, Reports numbness (on and off, in the left hand) and Reports tingling (recurrent, in the left hand) Skin/Breast Denies rash Neuro Denies dizziness, Denies headache(s), Reports memory loss (feels that this is getting worse ), Reports numbness (on and off, in the left hand) and Reports tingling (recurrent, in the left hand) Psych Reports memory loss (feels that this is getting worse ) Endo Reports fatigue and Denies palpitations Physical exam (Primary Care) Vital Signs: Last Vital Signs Pulse 85 03/20/24 11:56 BP 136/86 03/20/24 11:56 Pulse Ox 97 03/20/24 11:56 Oxygen Delivery Method Room Air 03/20/24 11:56 BMI result Body Mass Index 26.2 Tobacco/Smoking Status: Tobacco use Status Tobacco use date assessed 03/20/24 03/20/24 12:00 Patient Tobacco Use Status Former Tobacco user 03/20/24 12:00 Tobacco use type Cigarette 03/20/24 12:00 e-Cigarette/Vaping Use Never Used 03/20/24 12:00 PHQ-9: PHQ-9 Score PHQ-9: Total score 0 03/20/24 20:54 Depression Screening Interpretation: Negative Thrive Assessment: Date of Thrive Assessment Date Thrive assessed 03/20/24 03/20/24 12:00 Currently or been in a relationship where the following occur: No concerns reported Const General: no acute distress and alert HENMT Ears: TM's normal bilaterally and EAC's normal Throat: Yes posterior oropharynx normal and Yes tonsils normal (no TP congestion) Neck Neck: Yes supple and No lymphadenopathy Thyroid: Thyroid normal Resp Auscultation: clear to auscultation bilaterally, no rales and no wheezes Cardio Rate: regular rate Rhythm: regular rhythm Heart sounds: no murmurs GI Palpation (GI): Soft to palpation and nontender Auscultation: normal bowel sounds General: Yes no CVA tenderness Back/Spine/Pelvis Back: no CVA tenderness Thoracic/Lumbar Spine: No lumbar spinal tenderness Skin Rashes: no rashes Extrem General: Yes no clubbing, cyanosis or edema Coding Level of Care Code Est Pt Level 4 (69371) Diagnoses Vascular dementia, unspecified dementia severity, unspecified whether behavioral, psychotic, or mood disturbance or anxiety F01.50 Dementia severity: unspecified severity Dementia behavioral or psychological symptom: unspecified whether behavioral, psychotic, or mood disturbance or anxiety Benign essential hypertension I10 Pure hypercholesterolemia E78.00 Impaired fasting glucose R73.01 Vitamin D deficiency E55.9 Carpal tunnel syndrome, bilateral G56.03 Osteopenia of multiple sites M85.89 Osteopenia location: multiple sites Nocturnal leg cramps G47.62 Insomnia, unspecified type G47.00 Insomnia type: unspecified Depression, unspecified depression type F32.A Depression Type: unspecified Overweight (BMI 25.0-29.9) E66.3 Additional Codes BRYON-7 Assessment Billing - BRYON-7 Assessment Tool: BRYON-7 Assessment 41067 ([id number]) PHQ-9 - 27587 - PHQ-9 Billing: Yes ([id number]) Assessment & Plan Assessment & Plan (1) Vascular dementia: Code(s): F01.50 - Vascular dementia, unspecified severity, without behavioral disturbance, psychotic disturbance, mood disturbance, and anxiety Category: Medical Qualifiers: Dementia severity: unspecified severity Dementia behavioral or psychological symptom: unspecified whether behavioral, psychotic, or mood disturbance or anxiety Qualified Code(s): F01.50 - Vascular dementia, unspecified severity, without behavioral disturbance, psychotic disturbance, mood disturbance, and anxiety Plan: Patient was diagnosed with dementia by neurology a few years ago but she did not follow up again as she was not happy with her diagnosis Her brain MRI done on 02/02/2021 revealed (+) mild to moderate chronic microangiopathy and 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 Chronic lacunar infarcts within the cerebellar hemispheres bilaterally. Otherwise, there are no acute findings Head/neck CTA done in February 2021 revealed that the right [employer]IST segment demonstrate poor opacification of the P2 and more distal segments likely refl ecting severe stenosis or residual thrombotic occlusion in the setting of prior infarction. Left P2 segment demonstrates moderate stenosis. Basilar artery and vertebral arteries are patent. Anterior circulation is patent She was advised on subsequent follow up that she has intracranial atherosclerosis and an old CVA She was also advised to start taking low dose Aspirin 81 mg QD (which she is still currently on), to keep her blood pressure controlled as best as she can and to continue on her low dose statin to help lower her cholesterol level She was referred back to Dr. Lopez a few months ago due to her complaint of progressive memory decline and she was diagnosed with vascular dementia when she was seen in November 2023 She was started on Sertraline 25 mg with her mood/depression and Trazodone 100 mg to help her get better sleep at night Have advised patient that with dementia and cognitive decline, there are really no proven medications or supplements that can help improve one's memory and the best we can do in these situations is to help preserve what is left and to slow down cognitive decline as much as possible Have advised patient that the best way to go about this is with excellent control of blood pressure and cholesterol level in her case I have also advised that she should make sure she eats healthy, exercise regularly and to make sure she gets enough sleep at night as much as possible Have also advised that she should try to stay active mentally - reading, doing crossword puzzles, simple mental math exercises, and most importantly, going out in talking to people and staying engaged with social activities as these can help stimulate her brain and help slow down her mental decline In terms of supplements, I have advised patient I do not know anything about the pineal cleanse that she is referring to; have recommended that she can try taking Neuriva for a couple of months and if she feels that this is not helping at all, she can stop taking it after her trial Follow-up with neurology as scheduled (2) Benign essential hypertension: Code(s): I10 - Essential (primary) hypertension Category: Medical Plan: Reinforced low sodium diet - goal is systolic BP of at least 140 mm or less Continue Losartan 50 mg QD and Amlodipine 2.5 mg QD She was also on Furosemide 20 mg QD to help alleviate her edema but patient states that she has not needed to take this in a while now Her blood pressure appears much better controlled currently Patient is reminded to continue monitoring her blood pressure regularly (3) Pure hypercholesterolemia: Code(s): E78.00 - Pure hypercholesterolemia, unspecified Category: Medical Plan: Reinforced low cholesterol diet Continue Pravastatin 20 mg QD Will recheck her labs and fasting lipids in 3 months for follow up - have advised patient of goal of her LDL cholesterol to at least <100 mg/dl (4) Impaired fasting glucose: Code(s): R73.01 - Impaired fasting glucose Category: Medical Plan: Patient's FBS was slightly elevated at 105 mg/dl on her labs done a few months ago but her HgbA1c remained normal at 5.5% Reinforced low calorie diet/exercise as tolerated Will recheck her FBS and HgbA1c in 3 months (5) Vitamin D deficiency: Code(s): E55.9 - Vitamin D deficiency, unspecified Category: Medical Plan: Continue Vitamin D3 2000 units QD (6) Carpal tunnel syndrome, bilateral: Code(s): G56.03 - Carpal tunnel syndrome, bilateral upper limbs Category: Medical Plan: EMG and NCV done back in June 2022 confirmed (+) moderate CTS bilaterally She underwent right carpal tunnel release surgery with Dr. Macedo at [facility] on 08/01/2023 with improvement of her symptoms It was also planned to have her get left CTS surgery done last month on 09/26/2023 but this appear to have been postponed at this time Follow up with orthopedics (Dr. Macedo) as scheduled (7) Osteopenia: Code(s): M85.80 - Other specified disorders of bone density and structure, unspecified site Category: Medical Qualifiers: Osteopenia location: multiple sites Qualified Code(s): M85.89 - Other specified disorders of bone density and structure, multiple sites Plan: Her BMD done back in January 2019 revealed (+) osteopenia Patient had her BMD done in 2020 through a [facility] screening - BMD was reportedly at 0.6 g/cm2 (was at 0.738 g/cm2 in the left hip in 2019) Patient is again encouraged to continue with daily calcium and Vitamin D sup plements and regular exercise as tolerated; fall precautions also reinforced Will recheck her BMD again in 2 to 3 years for follow up - will order this at her next follow up appointment (8) Nocturnal leg cramps: Code(s): G47.62 - Sleep related leg cramps Category: Medical Plan: Continue OTC Magnesium oxide 400 mg Q PM (9) Insomnia: Code(s): G47.00 - Insomnia, unspecified Category: Medical Qualifiers: Insomnia type: unspecified Qualified Code(s): G47.00 - Insomnia, unspecified Plan: Sleep hygiene reinforced She has tried OTC Melatonin previously up to 10 mg with NO relief; thinks that her trouble sleeping has more to do with anxiety She was started previously on Doxepin 25 mg Q HS PRN but patient apparently did not fruit picker her Rx and has gone back to taking Melatonin She was also started on Trazodone by Dr. Lopez in November 2023 but patient did not start the Rx Have advised patient getting enough sleep is very important in helping to slow down her cognitive decline, especially since she has already been diagnosed with vascular dementia a few months ago Have advised her to try doubling up on her melatonin and if that is still not helping, she should consider to try taking Trazodone (10) Depression: Code(s): F32.A - Depression, unspecified Category: Medical Qualifiers: Depression Type: unspecified Qualified Code(s): F32.A - Depression, unspecified Plan: Patient was started on sertraline by Dr. Lopez a few months ago but she did not take the medication (11) Overweight (BMI 25.0-29.9): Code(s): E66.3 - Overweight Category: Medical Plan: Reinforced diet/exercise as tolerated/lose weight Plan Follow up in 3 months Orders: Orders Lipid Panel 3 Months E78.00 - Pure hypercholesterolemia, unspecified Vitamin B12 and Folate 3 Months E53.8 - Deficiency of other specified B group vitamins Comprehensive [place]. Panel Fast 3 Months E78.00 - Pure hypercholesterolemia, unspecified Complete Blood Count Auto Diff 3 Months D64.9 - Anemia, unspecified TSH reflex Free T4 3 Months E78.00 - Pure hypercholesterolemia, unspecified Vitamin D 25-OH Total 3 Months E55.9 - Vitamin D deficiency, unspecified UA CC w/rflx Micro + Cult 3 Months R30.0 - Dysuria Medications: New [id number] 1.7 mg-400 mcg- 2.4 mcg (Neuriva Plus Brain Performance) 1 cap PO BEDTIME 90 days 90 caps 1RF
--- OUTSIDE RECORDS SUMMARY | 2024-03-20 11:57 | XMS_ITS | Clinical Summary ---
Author Organization 175 [facility] Address [address] [place] [address] Phone Care Team Providers Care Epic Ambulatory Specialists Name Role Phone Ronnie Parr MD Primary Care Provider [phone] Allergies No known active allergies Medications Medication Sig Dispensed Refills Start Date End Date Status acetaminophen (TYLENOL 8 HOUR) 650 mg 8 hr tablet Take 1 tablet (650 mg total) by mouth. 07/17/2023 Active amLODIPine (NORVASC) 2.5 mg tablet Take 1 tablet (2.5 mg total) by mouth. Active aspirin 81 mg EC tablet Take 1 tablet (81 mg total) by mouth. Active atorvastatin (LIPITOR) 40 mg tablet Take 1 tablet (40 mg total) by mouth. Active cholecalciferol (VITAMIN D-3) 50 mcg (2,000 unit) capsule Take 50 mcg by mouth. Active cyanocobalamin (VITAMIN B-12) 1,000 mcg tablet Take 1 tablet (1,000 mcg total) by mouth. Active furosemide (LASIX) 20 mg tablet Take 1 tablet (20 mg total) by mouth. Active ibuprofen (ADVIL,MOTRIN) 600 mg tablet TAKE 1 TABLET BY MOUTH 3 TIMES DAILY (WITH MEALS) FOR 7 DAYS. 07/17/2023 Active losartan (COZAAR) 50 mg tablet Take 1 tablet (50 mg total) by mouth 1 (one) time each day. 01/13/2024 Active magnesium oxide (MAG-OX) 400 mg (241.3 elemental magnesium) tablet Take 1 tablet (400 mg total) by mouth 1 (one) time each day. for 90 days Active oxyCODONE (ROXICODONE) 5 mg immediate release tablet Take 1 tablet (5 mg total) by mouth. 07/17/2023 Active pravastatin (PRAVACHOL) 40 mg tablet Take 1 tablet (40 mg total) by mouth 1 (one) time each day. for 90 days 12/21/2023 Active sertraline (ZOLOFT) 25 mg tablet Take 1 tablet (25 mg total) by mouth 1 (one) time each day with breakfast. 01/06/2024 Active traZODone (DESYREL) 50 mg tablet take 1 tablet by mouth every day at bedtime as needed for 30 days 12/10/2023 Active triamcinolone acetonide (KENALOG-40) 40 mg/mL injection 1 mL (40 mg total) by Other route. 11/06/2023 Active Active Problems Problem Noted Date Diagnosed Date Carpal tunnel syndrome on left 02/04/2024 Left carpal tunnel syndrome 10/27/2022 Right carpal tunnel syndrome 10/27/2022 Trigger finger, left middle finger 10/27/2022 Essential hypertension 08/08/2017 Over weight 08/08/2017 Encounters Date Type Department Care Team Description 01/23/2024 2:30 PM EST Office Visit Orthopedic Surgery - [address] [place] [address] Makenzie Ye, PA Carpal tunnel syndrome of left wrist (Primary Dx) from Last 3 Months Immunizations Name Administration Dates Next Due Influenza Quadravalent, 0.5m l (Fluad) 65yo and older 11/04/2020,10/13/2019 Influenza Quadrivalent, 0.5m l, preservative free (Fluarix; FluLaval; Fluzone) ages 6mo and older (Afluria) 3yo and older 09/13/2022 Influenza trivalent, 0.5mL ( Fluzone High-dose) 65yo and older 10/12/2023,11/21/2018,11/01/2018,11/12,12/24/2015 Pneumococcal polysaccharide 23 valent (Pneumovax 23) 2yo and older 06/28/2018 RSV, bivalent, protein subun it RSVpreF, 0.5mL, Preservative Free (Arexvy) 60yo and older 10/12/2023 Td Tetanus diptheria (Tdvax) 7yo and older 12/31/2018 Zoster recombinant (Shingrix ) 19yo and older 08/21/2021 Surgical History Surgery Date Site/Laterality Comments BUNIONECTOMY PROCEDURE: BUNION SURGERY, SIMPLE REMOVAL; COMMENT: bilateral Medical History Medical History Date Comments Essential hypertension 08/08/2017 DX:Essent ial hypertension Over weight 08/08/2017 DX:Over weight Family History Medical History Relation Name Comments Other: healthy Father Other: healthy Mother Relation Name Status Comments Father Mother Social History Tobacco Use Types Packs/Day Years Used Date Smoking Tobacco: Former Cigarettes Q uit: 08/08/1981 Smokeless Tobacco: Never Alcohol Use Standard Drinks/Week Comments No 0 (1 standard drink = 0.6 oz pur e alcohol) Sex and Gender Information Value Date Recorded Sex Assigned at Not on file Gender Identity Not on file Sexual Orientation Not on file Job Start Date Occupation Industry Not on file Not on file Not on file Obstetrics History Last Filed Vital Signs Vital Sign Reading Time Taken Comments Blood Pressure 185/81 07/17/2023 11:54 AM EDT Pulse 71 07/17/2023 11:54 AM EDT Temperature - - Respiratory Rate - - Oxygen Saturation - - Inhaled Oxygen Concentration - - Weight 73.5 kg (162 lb) 11/06/2023 10:39 AM EDT Height 165.1 cm (5' 5 ) 11/06/2023 10:39 AM EDT Body Mass Index 26.96 11/06/2023 10:39 AM EDT Plan of Treatment Upcoming Encounters Date Type Department Care Team (Latest Contact Info) Description 04/08/2024 10:00 AM EST Office Visit Orthopedic Surgery [facility] [address] [phone] Maggie Macedo MD [address] [phone] 05/27/2024 10:00 AM EDT Consult Orthopedic Surgery [facility] [address] [phone] Maggie Macedo MD [address] [phone] 06/04/2024 10:00 AM EDT Hospital Encounter [facility] Main OR [address] [place] [phone] Maggie Macedo MD [address] [phone] 06/04/2024 10:00 AM EDT - 06/04/2024 11:15 AM EDT Surgery [facility] Main OR [address] [place] [phone] Maggie Macedo MD [address] [phone] RELEASE CARPAL TUNNEL ENDOSCOPIC-LEFT [[id number] (CPT??)] 06/16/2024 8:00 AM EDT Office Visit Orthopedic Surgery - [place] [address] [phone] Makenzie Ye PA [address] [phone] Scheduled Procedures Name Priority Associated Diagnoses Date/Ti me RELEASE CARPAL TUNNEL ENDOSCOPIC Carpal tunnel syndrome on left 06/04/2024 10:00 AM EDT Health Maintenance Due Date Last Done Comments Pneumococcal Vaccine: 65+ Years (2 of 2 - PCV) 06/29/2019 06/28/2018 Zoster Vaccines (2 of 2) 10/16/2021 08/21/2021 Cholesterol Screening (Lipid Panel) 03/16/2023 Depression Screening 03/16/2023 Falls Risk Assessment 03/16/2023 Hepatitis C Screening 03/16/2023 Hypertension/CHF/CAD Annual BMP Blood Test 03/16/2023 Medicare Annual Wellness Visit 03/16/2023 Osteoporosis Screening (Bone Density Screening) 03/16/2023 Social Influencers of Health Screening 03/16/2023 DTaP,Tdap,and Td Vaccines (2 - Td or Tdap) 12/31/2028 12/31/2018 COVID-19 Vaccine Completed 10/12/2023, 11/2021, 06/28/2020, Additional history exists Influenza Vaccine Completed 10/12/2023, , 11/04/2020, Additional history exists RSV Immunization Patients 60+ Years Old Completed 10/12/2023 HIB Vaccines Aged Out No longer eligi ble based on patient's age to complete this topic HPV Vaccines Aged Out No longer eligi ble based on patient's age to complete this topic Hepatitis A Vaccines Aged Out No long er eligible based on patient's age to complete this topic Hepatitis B Vaccines Aged Out No long er eligible based on patient's age to complete this topic IPV Vaccines Aged Out No longer eligi ble based on patient's age to complete this topic MMR Vaccines Aged Out No longer eligi ble based on patient's age to complete this topic Meningococcal ACWY Vaccine Aged Out N o longer eligible based on patient's age to complete this topic RSV Immunization Patients Under 20 months Aged Out No longer eligible based on patient's age to complete this topic Varicella Vaccines Aged Out No longer eligible based on patient's age to complete this topic Procedures Procedure Name Priority Date/Time Associated Diagnosis Comments ID INJECTION CARPAL TUNNEL THERAPEUTIC Routine 01/23/2024 2:30 PM EST Carpal tunnel syndrome of left wrist from Last 3 Months Results * ID INJECTION CARPAL TUNNEL THERAPEUTIC (01/23/2024 2:30 PM EST) Narrative Maggie Macedo MD - 01/23/2024 2:30 PM EST CROW [facility] ? 01/23/2024 ??2:52 PM Hand / UE Inj/Asp: L carpal tunnel for carpal tunnel syndrome Details: 25 G needle, volar approach Medications: 0.5 mL lidocaine 1 %; 40 mg triamcinolone acetonide 40 mg/mL Informed Consent: ??Laterality: ??Left ??Relevant images/test results available and reviewed: yes ?Health status cleared: ??Yes ??Procedure/treatment, purpose, treatment alternatives, risks/potential complications and benefits explained: yes ?Risk/complications/benefits details: ??Risks of infection, thinning of the skin and temporary skin discoloration discussed. ??Discussed risks of temporary increased pain after injection and swelling and mild redness at injection site for couple days. ??Explained occasionally cortisone injection can cause facial flushing temporarily. ??Benefits pain management. ??For postop injection pain ice, Tylenol and/or NSAIDs if patient can take ??Patient questions answered: yes ?Patient agrees, verbalizes understanding, and wants to proceed: yes ?Consent given by: ??Patient ??Informed consent discussion completed by Physician/EDENILSON with patient: ?? Verbal ??Pre-procedure timeout performed: yes ?? Makenzie MARIA IN CLINIC/BEDSIDE OR DERABLES from Last 3 Months Care Teams Epic Ambulatory Specialists Relationship Specialty Start Date End Date Ronnie Parr MD [address] [place] [address] Dr Lambert [address] SAIRA Cota PCP - General 11/06/23
== END | disposition home or self-care (01) ==
PROVIDERS: PCP Internal Medicine; Visit Provider Internal Medicine

== ENCOUNTER 2024-04-04 14:06 | Outpatient (AMB) | payer MEDICARE, SELFPAY ==
[2024-04-04 14:09] VITALS: BP 148/60; PULSE 88; TEMP 36.4; O2SAT 97; BMI 26.1
--- NOTE | 2024-04-04 14:09 | MHC.OFFWIV ---
Intake Vital Signs 04/04/24 14:09 Height 5 ft 6 in Weight 162 lb BMI 26.1 BP 148/60 H Blood Pressure Location Lt brachial Position Sitting Pulse 88 Pulse Source Pulse Oximeter Temp 97.6 F Temp Source Oral Pulse Oximetry (%) 97 Oxygen Delivery Method Room Air Intake Visit Reasons: EP-neck pain, shoulders pain, head pressure Intake Note: Pt is here today c/o neck, shoulder pain and head pressure: No injury noted Patient Tobacco Use Status: Former Tobacco user Allergies iohexol [From Omnipaque] Adverse Reaction (Verified 04/04/24 14:12) Hives HPI HPI Comments History of Present Illness Details This is a 79-year-old female who presented to the walk-in clinic complaining of neck pain, shoulder pain, and headaches x3 days. She states her symptoms started out as bilateral neck pain after using her computer for prolonged period of time. She states her pain started to radiate into bilateral shoulders and up towards the top of her skull. She denies any head trauma or injury. She denies any facial asymmetry, slurred speech, or visual disturbances. She denies any numbness/weakness/paresthesias of her extremities. She denies any fevers. [facility] Medical History Vitamin D deficiency Insomnia Memory impairment Osteopenia Arthralgia Myalgia Blurring of vision Overweight (BMI 25.0-29.9) Benign essential hypertension Pure hypercholesterolemia Surgical History History of bunionectomy Family History Father No problems noted. Mother No problems noted. Social History Housing: Condominium Alcohol intake: current Alcohol intake frequency: holidays/special occasions only Alcohol type: wine Patient Tobacco Use Status: Former Tobacco user Tobacco use type: Cigarette e-Cigarette/Vaping Use: Never Used Second Hand Smoke Exposure: Yes service: No Current occupational status: retired Cognitive needs: No Hearing needs: No Vision needs: Yes (reading glasses) Review of Systems Const All systems reviewed & are unremarkable except as noted in HPI and below Reports no additional complaints Eyes Reports no additional complaints ENT Reports no additional complaints Card Reports no additional complaints Resp Reports no additional complaints GI Reports no additional complaints Reports no additional complaints Musc Reports no additional complaints Skin/Breast Reports system reviewed and no additional complaints, except as documented Neuro Reports no additional complaints Psych Reports no additional complaints Endo Reports no additional complaints Nicolas/Lymph Reports no additional complaints Aller/Immun Reports no additional complaints Physical Exam Vital Signs: Last Vital Signs Temp 97.6 F 04/04/24 14:09 Pulse 88 04/04/24 14:09 BP 148/60 H 04/04/24 14:09 Pulse Ox 97 04/04/24 14:09 Oxygen Delivery Method Room Air 04/04/24 14:09 BMI result Body Mass Index 26.1 Const Other: Vital signs reviewed. Constitutional: Non-toxic appearing. No acute distress. Well-developed and well-nourished. HEENT: Normocephalic and atraumatic. PERRL/EOMI. Skin: Warm and dry. No rashes or lesions noted. Neck: She has decreased range of motion of the neck with rotation to both sides and lateral flexion to both sides. She has normal range of motion with forward flexion and extension of the neck. There is mild tenderness to palpation and palpable muscle spasms of bilateral cervical paraspinal musculature. There is no midline or cervical spinous process tenderness to palpation. Cardio: Regular rate and rhythm. No murmurs, gallops, or rubs. No lower extremity edema. No JVD. Pulmonary: No respiratory distress. No accessory muscle usage. Clear to auscultation bilaterally without wheezing, crackles, or rhonchi. Musculoskeletal: Normal range of motion in joints throughout the body. No deformity or other signs of injury. Neuro: Alert and oriented x4. Cranial nerves 2-12 grossly intact. No focal deficits appreciated. Psych: Normal mood and affect. Assessment & Plan Assessment & Plan (1) Cervicalgia: Code(s): M54.2 - Cervicalgia Plan: This is a 79-year-old female who presented to the walk-in clinic complaining of bilateral neck and shoulder pain. On physical examination, she has mild tenderness to palpation and muscle spasms of the cervical paraspinal musculature bilaterally as well as bilateral trapezius muscles. Her symptoms appear to be muscular in nature, low suspicion for infectious cause such as meningitis given no fevers or nuchal rigidity, low suspicion for fracture given no trauma/injury, and low suspicion for nerve impingement given no radicular symptoms. Patient was given a prescription for p.o. cyclobenzaprine 10 mg at bedtime as needed for muscle spasms and she was advised to apply heating pad to the area x 20 minutes 3-4 times daily. She was advised to follow-up here or proceed to the emergency room if she were to develop persistent or worsening symptoms. Patient verbalized understanding and is agreeable with the plan and she was very appreciative of the help. Medications: New cyclobenzaprine 10 mg PO BEDTIME PRN 20 tabs 0RF muscle spasm Coding Level of Care Code New Pt Level 3 (95023) Diagnoses Cervicalgia M54.2
--- OUTSIDE RECORDS SUMMARY | 2024-04-04 14:33 | XMS_ITS | Clinical Summary ---
Author Organization [address] [place] [address] Address [address] [place] [address] Phone Care Team Providers Care Calciner Operator Helper Name Role Phone Ronnie Parr MD Primary Care Provider Allergies No known active allergies Medications acetaminophen (TYLENOL 8 HOUR) 650 mg 8 [...] PM EST Office Visit Orthopedic Surgery - [address] [phone] Makenzie Ye, PA Carpal tunnel syndrome [...] drink = 0.6 oz pur e alcohol) Comments Unknown Sex and Gender Information Value Date Recorded Sex Assigned at Not on file Legal Sex Female 10:31 PM EST Gender Identity Not on file Sexual Orientation Not on file Obstetrics History Last Filed [...] Department Care Team (Latest Contact Info) Description 05/27/2024 10:00 AM EDT Consult Orthopedic Surgery - [address] [phone] Maggie Macedo MD [address] [place] [phone] 06/04/2024 10:00 AM EDT Hospital Encounter [facility] OR [address] [place] [phone] Maggie Macedo MD [address] [place] [phone] 06/04/2024 10:00 AM EDT - 06/04/2024 11:15 AM EDT Surgery [facility] Main OR [address] [place] [phone] Maggie Macedo MD 175 [facility] [address] [place] [phone] RELEASE CARPAL TUNNEL ENDOSCOPIC-LEFT [[id number] (CPT??)] 06/16/2024 8:00 AM EDT Office Visit Orthopedic Surgery - [place] [address] [phone] Makenzie Ye PA [address] [phone] Scheduled Procedures Name Priority Associated Diagnoses Date/Ti me RELEASE CARPAL TUNNEL ENDOSCOPIC Carpal tunnel syndrome on left 06/04/2024 10:00 AM EDT Health Maintenance Due Date Last Done Comments Pneumococcal Vaccine: 50+ Years (2 of 2 - PCV) 06/29/2019 [...] patient's age to complete this topic Meningococcal B Vacine Aged Out No lo nger eligible based on patient's age to complete this topic RSV Immunization Patients Under 20 months Aged Out No longer eligible based on patient's age to complete this topic Varicella Vaccines Aged Out No longer eligible based on patient's age to complete this topic Procedures Procedure Name Priority Date/Time Associated Diagnosis Comments GA INJECTION CARPAL TUNNEL THERAPEUTIC Routine 01/23/2024 2:30 PM EST Carpal tunnel syndrome of left wrist from Last 3 Months Results * GA INJECTION CARPAL TUNNEL THERAPEUTIC (01/23/2024 2:30 PM [...] ?? Verbal ??Pre-procedure timeout performed: yes ?? us Makenzie MARIA IN CLINIC/BEDSIDE ORDERABLES Final Result from Last 3 Months Insurance [employer] MEDICARE ADVANTAGE Care Teams Calciner Operator Helper Relationship Specialty Start Date End Date Ronnie Parr MD [address] [place] [address] Dr Fausto [address] SAIR[address] Cota PCP - General 11/06/23
== END 2024-04-04 15:02 | disposition home or self-care (01) ==
PROVIDERS: PCP Internal Medicine; Visit Provider Physician Assistant Medical
DX: M54.2 Cervicalgia (principal)

== ENCOUNTER → 2024-04-04 14:06 | Outpatient (BNVA) | payer MEDICARE, SELFPAY | PROVIDERS: PCP Internal Medicine | DX: M54.2 Cervicalgia (principal) | CPT/HCPCS: 99202 ==

== ENCOUNTER 2024-05-26 08:19 | Outpatient (REF) | payer MEDICARE, SELFPAY ==
[2024-05-26 08:30] LABS: MANUAL DIFF FLAG NO
--- OUTSIDE RECORDS SUMMARY | 2024-05-26 08:40 | XMS_ITS | Clinical Summary ---
Author Organization 175 [facility] Address [address] [place] [address] Phone Care Team Providers Care Farmworker Poultry Name Role Phone Ronnie Parr MD Primary [...] Encounters Date Type Department Care Team Description 04/30/2024 Telephone Orthopedic Surgery - [address] [phone] Maggie Macedo MD Cancel Surgery from Last 3 Months Immunizations Name Administration [...] Upcoming Encounters Date Type Department Care Team (Late st Contact Info) Description 05/27/2024 10:00 AM EDT Consult Orthopedic Surgery [facility] [address] [phone] Maggie Macedo MD [address] [phone] 06/16/2024 8:00 AM EDT Office Visit Orthopedic Surgery [facility] [address] [phone] Makenzie Ye PA [address] [phone] Health Maintenance Due Date Last Done Comments [...] , 11/04/2020, Additional history exists RSV Immunization Adult Patients Completed 10/12/2023 HIB Vaccines Aged Out No [...] age to complete this topic Meningococcal B Vaccine Aged Out No l onger eligible based on patient's age to complete this topic RSV Immunization Patients Under 20 months Aged Out No longer eligible based on patient's age to complete this topic Varicella Vaccines Aged Out No longer eligible based on patient's age to complete this topic Insurance [employer] MED[employer]ARE ADVANTAGE Care Teams Farmworker Poultry Relationship Specialty Start Date End Date Ronnie Parr MD [address] [place] PCP - General 11/06/23
[2024-05-26 08:52] LABS: Basophils Percent Auto 0.8 % (0-2); Eosinophils Absolute Auto 0.1 X10*3/uL (0.0-0.4); Eosinophils Percent Auto 2.7 % (0-4); Hematocrit 37.9 % (37.0-47.0); Hemoglobin 12.4 g/dl (12.0-16.0); Imm Gran Abs Auto 0.01 X10*3/uL (0.00-0.03); Imm Gran Pct Auto 0.2 % (0.0-0.4); Lymphocytes Absolute Auto 1.8 X10*3/uL (1.2-4.9); Lymphocytes Percent Auto 35.7 % (20-40); Mean Corpuscular HGB Conc 32.7 g/dl (31.0-35.0); Mean Corpuscular Hemoglobin 30.8 pg (27.0-33.0); Mean Corpuscular Volume 94.3 fL (80.0-98.0); Mean Platelet Volume 8.6 fL (9.4-12.3); Monocytes Absolute Auto 0.4 X10*3/uL (0.1-1.2); Monocytes Percent Auto 8.3 % (2-11); Neutrophils Absolute Auto 2.7 x10*3/uL (2.0-8.3); Neutrophils Percent Auto 52.3 % (45-73); Platelet Count 327 X10*3/uL (160-400); Red Blood Count 4.02 X10*6/uL (4.20-5.50); Red Cell Distribution Width 13.2 % (11.0-16.0); White Blood Count 5.2 X10*3/uL (4.8-10.8)
[2024-05-26 08:58] LABS: Appearance Urine Cloudy; Color Urine Yellow; Glucose Urine UA Negative (Negative); Leukocyte Esterase Urine Negative (Negative); Nitrite Urine Negative (Negative); PH 7.5 (5.0-9.0); Urine Blood Negative (Negative); Urine Ketones Negative (Negative); Urine Protein Negative (Neg-Trace)
[2024-05-26 09:25] LABS: Alanine Aminotransferase 35 U/L (0-31); Albumin Level 4.2 g/dL (3.5-5.0); Alkaline Phosphatase 81 U/L (39-117); Anion Gap 8 (12-20); Aspartate Amino Transferase 32 U/L (5-31); Bilirubin Total 0.8 mg/dL (0.0-1.0); Blood Urea Nitrogen 14 mg/dL (9-16); Calcium 10.2 mg/dL (8.4-10.2); Carbon Dioxide 27 mmol/L (22-29); Chloride 109 mmol/L (96-108); Cholesterol 181 mg/dL (<200); Estimated Glomerular Filt Rate > 60; Glucose Fasting 93 mg/dL (60-99); HDL Cholesterol 74 mg/dL (>40); LDL Cholesterol Calculated 92 mg/dL (<100); Potassium 4.4 mmol/L (3.3-5.1); Sodium 140 mmol/L (135-145); Total Protein 6.7 g/dL (6.5-8.0); Triglycerides 77 mg/dL (<150)
[2024-05-26 09:41] LABS: TSH reflex Free T4 1.22 uIU/mL (0.32-4.0); Vitamin D 25-OH Total 91.7 ng/mL (>30)
[2024-05-26 09:53] LABS: Folate 6.7 ng/mL (> or = 4.0); Vitamin B12 855 pg/mL (200-900)
== END 2024-05-26 08:20 | disposition home or self-care (01) ==
LOC: HO.LAB 08:19
PROVIDERS: PCP Internal Medicine; Visit Provider Internal Medicine
DX: E53.8 Deficiency of other specified B group vitamins (principal); E78.00 Pure hypercholesterolemia, unspecified; D64.9 Anemia, unspecified; E55.9 Vitamin D deficiency, unspecified; R30.0 Dysuria
CPT/HCPCS: 36415; 80053; 80061; 81003; 82306; 82607; 82746; 84443; 85025

== ENCOUNTER 2024-06-02 15:53 | Outpatient (AMB) | payer MEDICARE, SELFPAY ==
--- OUTSIDE RECORDS SUMMARY | 2024-06-02 15:55 | XMS_ITS | Clinical Summary ---
Author Organization [address] [place] [address] Address [address] [place] [address] Phone Care Team Providers Care Gas Transfer Operator Name Role Phone Ronnie Parr MD Primary Care Provider [phone] Allergies No known active allergies Medications acetaminophen [...] Team Description 04/30/2024 Telephone Orthopedic Surgery - [address] [phone] Maggie Macedo MD Cancel Surgery [...] 11/06/2023 10:39 AM EDT Plan of Treatment Health Maintenance Due Date Last Done Comments [...] 03/16/2023 Social Influencers of Health Screening 03/16/2023 COVID-19 Vaccine ( season) 2024 10/12/2023, 02/21/2021, 06/28/2020, Additional history exists DTaP,Tdap,and Td Vaccines (2 - Td or Tdap) 12/31/2028 12/31/2018 Influenza Vaccine Completed 10/12/2023, , 11/04/2020, Additional [...] topic Insurance [employer] MED[employer]ARE ADVANTAGE Care Teams Gas Transfer Operator Relationship Specialty Start Date End Date Ronnie Prar MD [address] [place] [address] Dr Fausto Cota [place] PCP - General 11/06/23
--- NOTE | 2024-06-02 15:56 | A.OFFPC_ITS ---
Vital Signs 06/02/24 15:57 Height 5 ft 6 in Weight 165 lb BMI 26.6 BP 136/68 Blood Pressure Location Lt brachial Position Sitting Pulse 82 Pulse Source Pulse Oximeter Pulse Oximetry (%) 97 Oxygen Delivery Method Room Air Intake Visit Reasons: Follow up check up Senior Data Architect Required: No Accompanied by: Self / Same As Patient Allergies iohexol [From Omnipaque] Adverse Reaction (Verified 06/02/24 16:57) Hives Medication List - Last Reconciled 06/02/24 by Ronnie Parr MD amlodipine 2.5 mg PO DAILY aspirin 81 mg PO DAILY [id number] 1.7 mg-400 mcg- 2.4 mcg (Neuriva Plus Brain Performance) 1 cap PO BEDTIME 90 days cholecalciferol (vitamin D3) 50 mcg PO DAILY 90 days cyclobenzaprine 10 mg PO BEDTIME PRN cyclosporine 0.05% (Restasis) 1 drp ophthalmic (eye) DAILY losartan 50 mg PO DAILY 90 days magnesium oxide 400 mg PO DAILY 90 days mecobalamin (vitamin B12) 1,000 mcg sublingual DAILY pravastatin 40 mg PO DAILY 90 days Tobacco use date assessed: 06/02/24 Fall risk assessment: No Falls in past year Last assessed Fall Risk: 06/02/24 Dental Screening Dental Screen Date: 06/02/24 Did you have a dental visit in the last 12 months?: Yes Did you have a dental problem in the last 6 months where you did not have access to dental care?: No Was dental information given to patient?: Patient has dentist HPI Follow up check up HPI Details Patient comes in today for her follow up visit She appeared very upset at this time for having to wait an hour to be seen She declines to offer any other information and states that she just wants to go over her labs and get the appointment over with so she can go home She adds that she is thinking about transferring to another practice over in [place] due to her unhappiness with her current situation here at the office - states that the whole medical system right now is a joke and that she has no new information to provide and everything should be in her file right now She had her follow up labs done last week [facility] Medical History Vitamin D deficiency Insomnia Memory impairment Osteopenia Arthralgia Myalgia Blurring of vision Overweight (BMI 25.0-29.9) Benign essential hypertension Pure hypercholesterolemia Surgical History History of bunionectomy Family History Father No problems noted. Mother No problems noted. Social History Housing: Condominium Alcohol intake: current Alcohol intake frequency: holidays/special occasions only Alcohol type: wine Patient Tobacco Use Status: Former Tobacco user Tobacco use type: Cigarette e-Cigarette/Vaping Use: Never Used Second Hand Smoke Exposure: Yes service: No Current occupational status: retired Cognitive needs: No Hearing needs: No Vision needs: Yes (reading glasses) Questionnaire PHQ-9 Over the last 2 weeks, how often have you been bothered by any of the following problems? 1. Little interest or pleasure in doing things: not at all 2. Feeling down, depressed, or hopeless: not at all 3. Trouble falling or staying asleep, or sleeping too much: not at all 4. Feeling tired or having little energy: not at all 5. Poor appetite or overeating: not at all 6. Feeling bad about yourself - or that you are a failure or have let yourself or your family down: not at all 7. Trouble concentrating on things, such as reading the newspaper or watching television: not at all 8. Moving or speaking so slowly that other people could have noticed. Or the opposite - being so fidgety or restless that you have been moving around a lot more than usual: not at all 9. Thoughts that you would be better off or of hurting yourself in some way: not at all Total score: 0 Depression Screening Interpretation: Negative Depression Screening Done: Yes 03416 - PHQ-9 Billing: Yes Source: Developed by Drs. Jorge Newton, Kelley Brown, Wilber Live and colleagues, with an educational ewelina from [employer]. Thrive Questionnaire Date Thrive assessed: 06/02/24 I am a: Patient What is your living situation today?: I have a steady place to live Within the past 12 months, did the food you bought not last and you didn't have the money to get more?: Never true Within the past 12 months, did you worry whether your food would run out before you got money to buy more?: Never true Do you have trouble paying for medicines?: No Do you have trouble getting transportation to medical appointments?: No Do you have trouble paying your heating and electricity bill?: No Do you have trouble taking care of your child, family member or friend?: No Do you have trouble with day-to-day activities such as bathing, preparing meals, shopping, managing finances, etc.?: No Are you currently unemployed and looking for a job?: No Are you interested in more education?: No Please select the resources that you would like help with: None Currently or been in a relationship where the following occur: No concerns reported THRIVE Score: 0 AUDIT C Alcohol Use Questionnaire (AUDIT-C) 1. How often do you have a drink containing alcohol?: Never 3. How often do you have six or more drinks on one occasion?: Never Total Score: 0 Score Reviewed/Action Taken: Yes BRYON-7 AMB Questionnaire BRYON-7 Date BRYON - 7 assessed: 06/02/24 Feeling nervous, anxious, or on edge: 0 = Not at all Not being able to stop or control worryin = Not at all Worrying too much about different things: 0 = Not at all Trouble relaxin = Not at all Being so restless that it is hard to sit still: 0 = Not at all Becoming easily annoyed or irritable: 0 = Not at all Feeling afraid as if something awful might happen: 0 = Not at all Total BRYON-7 score (0-4 normal; 5-9 mild; 10-14 moderate; 15-21 severe): 0 Source: Developed by Drs. Jorge Newton, Kelley Brown, Wilber Live and colleagues, with an educational ewelina from [employer]. BRYON-7 Assessment Billing BRYON-7 Assessment Tool: BRYON-7 Assessment 00555 Review of Systems Const Denies chills, Reports difficulty sleeping, Denies fatigue, Denies fever(s) and Denies headache(s) ENT Denies dysphagia, Denies dizziness, Denies otalgia, Denies headache(s), Denies neck pain, Denies odynophagia and Denies sore throat Card Denies chest pain, Denies palpitations and Denies dyspnea Resp Denies chest congestion, Denies cough and Denies dyspnea GI Denies abdominal pain, Denies constipation, Denies dysphagia, Denies heartburn, Denies diarrhea, Denies nausea, Denies odynophagia and Denies vomiting Denies difficulty voiding, Reports nocturia, Denies dysuria and Denies urinary urgency Musc Reports back pain (on and off, over the lower back), Reports arthralgias (diffuse - involving multiple joints), Reports muscle cramps (on and off in the legs, especially at night), Denies neck pain, Reports numbness (on and off, in the left hand) and Reports tingling (recurrent, in the left hand) Skin/Breast Denies rash Neuro Denies dizziness, Denies headache(s), Reports memory loss (feels that this is getting worse ), Reports numbness (on and off, in the left hand) and Reports tingling (recurrent, in the left hand) Psych Reports memory loss (feels that this is getting worse ) Endo Denies fatigue and Denies palpitations Physical exam (Primary Care) Vital Signs: Last Vital Signs Pulse 82 06/02/24 15:57 BP 136/68 06/02/24 15:57 Pulse Ox 97 06/02/24 15:57 Oxygen Delivery Method Room Air 06/02/24 15:57 BMI result Body Mass Index 26.6 Tobacco/Smoking Status: Tobacco use Status Tobacco use date assessed 06/02/24 06/02/24 16:11 Patient Tobacco Use Status Former Tobacco user 06/02/24 16:11 Tobacco use type Cigarette 06/02/24 16:11 e-Cigarette/Vaping Use Never Used 06/02/24 16:11 PHQ-9: PHQ-9 Score PHQ-9: Total score 0 06/02/24 17:04 Depression Screening Interpretation: Negative Thrive Assessment: Date of Thrive Assessment Date Thrive assessed 06/02/24 06/02/24 16:11 Currently or been in a relationship where the following occur: No concerns reported Const General: no acute distress and alert HENMT Throat: Yes posterior oropharynx normal and Yes tonsils normal (no TP congestion) Neck Neck: Yes supple and No lymphadenopathy Thyroid: Thyroid normal Resp Auscultation: clear to auscultation bilaterally, no rales and no wheezes Cardio Rate: regular rate Rhythm: regular rhythm Heart sounds: no murmurs GI Palpation (GI): Soft to palpation and nontender Auscultation: normal bowel sounds General: Yes no CVA tenderness Back/Spine/Pelvis Back: no CVA tenderness Thoracic/Lumbar Spine: No lumbar spinal tenderness Skin Rashes: no rashes Extrem General: Yes no clubbing, cyanosis or edema Results Reviewed Results Reviewed: Laboratory Tests 05/26/24 05/26/24 08:24 08:29 WBC 5.2 Hgb 12.4 Hct 37.9 Plt Count 327 Sodium 140 Potassium 4.4 Creatinine 0.77 Estimated GFR > 60 Fasting Glucose 93 Calcium 10.2 AST 32 H ALT 35 H Triglycerides 77 Cholesterol 181 LDL Cholesterol, Calc 92 HDL Cholesterol 74 Vitamin B12 855 25-OH Vitamin D Total 91.7 Folate 6.7 TSH 1.22 Ur Specific [place] 1.020 Urine Protein Negative Urine Glucose (UA) Negative Urine Blood Negative Urine Nitrite Negative Ur Leukocyte Esterase Negative Coding Level of Care Code Est Pt Level 4 (14676) Diagnoses Vascular dementia, unspecified dementia severity, unspecified whether behavioral, psychotic, or mood disturbance or anxiety F01.50 Dementia severity: unspecified severity Dementia behavioral or psychological symptom: unspecified whether behavioral, psychotic, or mood disturbance or anxiety Benign essential hypertension I10 Pure hypercholesterolemia E78.00 Impaired fasting glucose R73.01 Vitamin D deficiency E55.9 Carpal tunnel syndrome, bilateral G56.03 Osteopenia of multiple sites M85.89 Osteopenia location: multiple sites Nocturnal leg cramps G47.62 Insomnia, unspecified type G47.00 Insomnia type: unspecified Depression, unspecified depression type F32.A Depression Type: unspecified Overweight (BMI 25.0-29.9) E66.3 Additional Codes BRYON-7 Assessment Billing - BRYON-7 Assessment Tool: BRYON-7 Assessment 20305 ([id number]) PHQ-9 - 58715 - PHQ-9 Billing: Yes ([id number]) Assessment & Plan Assessment & Plan (1) Vascular dementia: Code(s): F01.50 - Vascular dementia, unspecified severity, without behavioral disturbance, psychotic disturbance, mood disturbance, and anxiety Category: Medical Qualifiers: Dementia severity: unspecified severity Dementia behavioral or psychological symptom: unspecified whether behavioral, psychotic, or mood disturbance or anxiety Qualified Code(s): F01.50 - Vascular dementia, unspecified severity, without behavioral disturbance, psychotic disturbance, mood disturbance, and anxiety Plan: Patient was diagnosed with dementia by neurology a few years ago but she did not follow up again as she was not happy with her diagnosis Her brain MRI done on 02/02/2021 revealed (+) mild to moderate chronic microangiopathy and 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 Chronic lacunar infarcts within the cerebellar hemispheres bilaterally. Otherwise, there are no acute findings Head/neck CTA done in February 2021 revealed that the right PROPELLANT ASSEMBLER segment demonstrate poor opacification of the P2 and more distal segments likely reflecting severe stenosis or residual thrombotic occlusion in the setting of prior infarction. Left P2 segment demonstrates moderate stenosis. Basilar artery and vertebral arteries are patent. Anterior circulation is patent She was advised on subsequent follow up that she has intracranial atherosclerosis and an old CVA She was also advised to start taking low dose Aspirin 81 mg QD (which she is still currently on), to keep her blood pressure controlled as best as she can and to continue on her low dose statin to help lower her cholesterol level She was referred back to Dr. Lopez a few months ago due to her complaint of progressive memory decline and she was diagnosed with vascular dementia when she was seen in November 2023 She was started on Sertraline 25 mg with her mood/depression and Trazodone 100 mg to help her get better sleep at night Have advised patient previously that with dementia and cognitive decline, there are really no proven medications or supplements that can help improve one's memory and the best we can do in these situations is to help preserve what is left and to slow down cognitive decline as much as possible Have advised patient that the best way to go about this is with excellent contro l of blood pressure and cholesterol level in her case I have also advised that she should make sure she eats healthy, exercise regularly and to make sure she gets enough sleep at night as much as possible Have also advised that she should try to stay active mentally - reading, doing crossword puzzles, simple mental math exercises, and most importantly, going out in talking to people and staying engaged with social activities as these can help stimulate her brain and help slow down her mental decline Follow-up with neurology as scheduled (2) Benign essential hypertension: Code(s): I10 - Essential (primary) hypertension Category: Medical Plan: Reinforced low sodium diet - goal is systolic BP of at least 140 mm or less Continue Losartan 50 mg QD and Amlodipine 2.5 mg QD She was also on Furosemide 20 mg QD to help alleviate her edema but patient states that she has not needed to take this in a while now Her blood pressure appears much better controlled currently compared to a year ago Patient is reminded to continue monitoring her blood pressure regularly (3) Pure hypercholesterolemia: Code(s): E78.00 - Pure hypercholesterolemia, unspecified Category: Medical Plan: Results of her labs done last week reviewed and discussed with patient - she is advised that her cholesterol levels have improved from previous Reinforced low cholesterol diet Continue Pravastatin 20 mg QD Will recheck her labs and fasting lipids in 4 months for follow up - have reminded patient of goal of getting her LDL cholesterol to at least <100 mg/dl (4) Impaired fasting glucose: Code(s): R73.01 - Impaired fasting glucose Category: Medical Plan: Patient's FBS was normal at 93 mg/dl on her recent labs; her HgbA1c was normal at 5.5% when previously checked Reinforced low calorie diet/exercise as tolerated (5) Vitamin D deficiency: Code(s): E55.9 - Vitamin D deficiency, unspecified Category: Medical Plan: Continue Vitamin D3 2000 units QD (6) Carpal tunnel syndrome, bilateral: Code(s): G56.03 - Carpal tunnel syndrome, bilateral upper limbs Category: Medical Plan: EMG and NCV done back in June 2022 confirmed (+) moderate CTS bilaterally She underwent right carpal tunnel release surgery with Dr. Macedo at [facility] on 08/01/2023 with improvement of her symptoms It was also planned to have her get left CTS surgery done last month on 09/26/2023 but this appear to have been postponed at this time Follow up with orthopedics (Dr. Macedo) as scheduled (7) Osteopenia: Code(s): M85.80 - Other specified disorders of bone density and structure, unspecified site Category: Medical Qualifiers: Osteopenia location: multiple sites Qualified Code(s): M85.89 - Other specified disorders of bone density and structure, multiple sites Plan: Her BMD done back in January 2019 revealed (+) osteopenia Patient had her BMD done in 2020 through a [facility] screening - BMD was reportedly at 0.6 g/cm2 (was at 0.738 g/cm2 in the left hip in 2019) Patient is again encouraged to continue with daily calcium and Vitamin D supplements and regular exercise as tolerated; fall precautions also reinforced Will recheck her BMD again in 2 to 3 years for follow up - will order this at her next follow up appointment (8) Nocturnal leg cramps: Code(s): G47.62 - Sleep related leg cramps Category: Medical Plan: Continue OTC Magnesium oxide 400 mg Q PM (9) Insomnia: Code(s): G47.00 - Insomnia, unspecified Category: Medical Qualifiers: Insomnia type: unspecified Qualified Code(s): G47.00 - Insomnia, unspecified Plan: Sleep hygiene reinforced She has tried OTC Melatonin previously up to 10 mg with NO relief; thinks that her trouble sleeping has more to do with anxiety She was started previously on Doxepin 25 mg Q HS PRN but patient apparently did not citrus picker her Rx and has gone back to taking Melatonin She was also started on Trazodone by Dr. Lopez in November 2023 but patient did not start the Rx Have advised patient getting enough sleep is very important in helping to slow down her cognitive decline, especially since she has already been diagnosed with vascular dementia a few months ago Have advised her to try doubling up on her melatonin and if that is still not helping, she should consider to try taking Trazodone (10) Depression: Code(s): F32.A - Depression, unspecified Category: Medical Qualifiers: Depression Type: unspecified Qualified Code(s): F32.A - Depression, unspecified Plan: Patient was started on Sertraline by Dr. Lopez a few months ago but she chose not to take the medication (11) Overweight (BMI 25.0-29.9): Code(s): E66.3 - Overweight Category: Medical Plan: Reinforced diet/exercise as tolerated/lose weight Plan Follow up in 4 months although patient has indicated that she may decide not to come back here and transfer her care over to another office in [place] as she is not happy with how our clinic is run and that we are always late with our appointments Have advised patient that it is entirely up to her to choose where she wants to go Advised her that I will be very happy to continue to be able to see her for follow-up but if she chooses to leave for another practice, it is her choice in I would understand and will do whatever we can to help her in her transition Orders: Orders Comprehensive [place]. Panel Fast 4 Months E78.00 - Pure hypercholesterolemia, unspecified Complete Blood Count Auto Diff 4 Months D64.9 - Anemia, unspecified Lipid Panel 4 Months E78.00 - Pure hypercholesterolemia, unspecified
[2024-06-02 15:57] VITALS: BP 136/68; PULSE 82; O2SAT 97; BMI 26.6
== END 2024-06-02 17:05 | disposition home or self-care (01) ==
LOC: HO.HMCH 15:53
PROVIDERS: PCP Internal Medicine; Visit Provider Internal Medicine
DX: F01.50 Vascular dementia, unspecified severity, without behavioral disturbance, psychotic disturbance, mood disturbance, and anxiety (principal); I10 Essential (primary) hypertension; E78.00 Pure hypercholesterolemia, unspecified; R73.01 Impaired fasting glucose; E55.9 Vitamin D deficiency, unspecified; G56.03 Carpal tunnel syndrome, bilateral upper limbs; M85.89 Other specified disorders of bone density and structure, multiple sites; G47.62 Sleep related leg cramps; G47.00 Insomnia, unspecified; F32.A Depression, unspecified; E66.3 Overweight

== ENCOUNTER → 2024-06-02 15:53 | Outpatient (BNVA) | payer MEDICARE, SELFPAY | PROVIDERS: PCP Internal Medicine; Visit Provider Internal Medicine | DX: E78.00 Pure hypercholesterolemia, unspecified (principal); I10 Essential (primary) hypertension; F01.50 Vascular dementia, unspecified severity, without behavioral disturbance, psychotic disturbance, mood disturbance, and anxiety; R73.01 Impaired fasting glucose; E55.9 Vitamin D deficiency, unspecified; G56.03 Carpal tunnel syndrome, bilateral upper limbs; M85.89 Other specified disorders of bone density and structure, multiple sites; G47.62 Sleep related leg cramps; G47.00 Insomnia, unspecified; F32.A Depression, unspecified; E66.3 Overweight; Z68.26 Body mass index [BMI] 26.0-26.9, adult | CPT/HCPCS: 96127; 99212 ==

== ENCOUNTER 2024-07-11 09:23 | Outpatient (AMB) | payer MEDICARE, SELFPAY ==
[2024-07-11 09:30] VITALS: BP 130/72; PULSE 73; O2SAT 95; BMI 26.2
--- NOTE | 2024-07-11 09:30 | MHC.PC.OV ---
Vital Signs 07/11/24 09:30 Height 5 ft 6 in Weight 162 lb 4 oz BMI 26.2 BP 130/72 Blood Pressure Location Lt brachial Position Sitting Pulse 73 Pulse Source Pulse Oximeter Pulse Oximetry (%) 95 Oxygen Delivery Method Room Air Intake Visit Reasons: follow up appt Dental Associate Required: No Accompanied by: Self / Same As Patient Allergies iohexol [From Omnipaque] Adverse Reaction (Verified 07/11/24 09:42) Hives Medication List - Last Reconciled 07/11/24 by Ronnie Parr MD amlodipine 2.5 mg PO DAILY aspirin 81 mg PO DAILY [id number] 1.7 mg-400 mcg- 2.4 mcg (Neuriva Plus Brain Performance) 1 cap PO BEDTIME 90 days cholecalciferol (vitamin D3) 50 mcg PO DAILY 90 days cyclobenzaprine 10 mg PO BEDTIME PRN cyclosporine 0.05% (Restasis) 1 drp ophthalmic (eye) DAILY losartan 50 mg PO DAILY 90 days magnesium oxide 400 mg PO DAILY 90 days mecobalamin (vitamin B12) 1,000 mcg sublingual DAILY pravastatin 40 mg PO DAILY 90 days Tobacco use date assessed: 07/11/24 Fall risk assessment: No Falls in past year Last assessed Fall Risk: 07/11/24 Dental Screening Dental Screen Date: 07/11/24 Did you have a dental visit in the last 12 months?: Yes Did you have a dental problem in the last 6 months where you did not have access to dental care?: No Was dental information given to patient?: Patient has dentist HPI follow up appt HPI Details Patient comes in today for her follow up visit She was seen last month but recalls that she was very upset at the time at having to wait for a long time to be seen and admits that she does not really remember much of anything that was discussed Recalls also that she practically just got up and walked out of here and is apologizing today for how she was last month Patient feels that she is getting more and more forgetful and that none of the supplements that she has taken so far (currently takes Neuriva) has helped She admits that she has trouble sleeping at night and that she hardly gets much sleep and that this has been going on for a while now She reports feeling fatigued and exhausted all day long and tends to fall asleep/doze off when she sits down or when she is at a stop light when she is driving and this is starting to concern her She also reports experiencing itching all over often recently States that she has not really noticed any rash on her skin although she has several dark spots and slightly raised skin lesions scattered all over and would like to have these checked out by dermatology She also relates increased pain over her lower back for a while now Notes increased pain and stiffness over her lower back whenever she wakes up in the morning and states that she has been taking 2 tablets of extra-strength Tylenol in the morning just so she is able to get going She also takes 2 tablets of the extra-strength Tylenol at night so she is able to sleep and her low back pain does not keep her up She denies any headaches or dizziness Denies any chest pains, no increased SOB No nausea/vomiting, no abdominal pain No change in bowel habits noted [facility] Medical History Vitamin D deficiency Insomnia Memory impairment Osteopenia Arthralgia Myalgia Blurring of vision Overweight (BMI 25.0-29.9) Benign essential hypertension Pure hypercholesterolemia Surgical History History of bunionectomy Family History Father No problems noted. Mother No problems noted. Social History Housing: Condominium Alcohol intake: current Alcohol intake frequency: holidays/special occasions only Alcohol type: wine Patient Tobacco Use Status: Former Tobacco user Tobacco use type: Cigarette e-Cigarette/Vaping Use: Never Used Second Hand Smoke Exposure: Yes service: No Current occupational status: retired Cognitive needs: No Hearing needs: No Vision needs: Yes (reading glasses) Questionnaire PHQ-9 Over the last 2 weeks, how often have you been bothered by any of the following problems? 1. Little interest or pleasure in doing things: nearly every day 2. Feeling down, depressed, or hopeless: nearly every day 3. Trouble falling or staying asleep, or sleeping too much: nearly every day 4. Feeling tired or having little energy: nearly every day 5. Poor appetite or overeating: nearly every day 6. Feeling bad about yourself - or that you are a failure or have let yourself or your family down: nearly every day 7. Trouble concentrating on things, such as reading the newspaper or watching television: nearly every day 8. Moving or speaking so slowly that other people could have noticed. Or the opposite - being so fidgety or restless that you have been moving around a lot more than usual: nearly every day 9. Thoughts that you would be better off or of hurting yourself in some way: nearly every day Total score: 27 Depression Screening Interpretation: Positive Depression Screening Follow-up: Follow-up Visit Requested Depression Screening Done: Yes 94347 - PHQ-9 Billing: Yes Source: Developed by Drs. Jorge Newton, Kelley Brown, Wilber Live and colleagues, with an educational ewelina from [employer]. Thrive Questionnaire Date Thrive assessed: 07/11/24 I am a: Patient What is your living situation today?: I have a steady place to live Within the past 12 months, did the food you bought not last and you didn't have the money to get more?: Never true Within the past 12 months, did you worry whether your food would run out before you got money to buy more?: Never true Do you have trouble paying for medicines?: No Do you have trouble getting transportation to medical appointments?: No Do you have trouble paying your heating and electricity bill?: No Do you have trouble taking care of your child, family member or friend?: No Do you have trouble with day-to-day activities such as bathing, preparing meals, shopping, managing finances, etc.?: No Are you currently unemployed and looking for a job?: No Are you interested in more education?: No Please select the resources that you would like help with: None Currently or been in a relationship where the following occur: No concerns reported THRIVE Score: 0 AUDIT C Alcohol Use Questionnaire (AUDIT-C) 1. How often do you have a drink containing alcohol?: 2-4 times a month 2. How many drinks containing alcohol do you have on a typical day when you are drinking?: 1 or 2 3. How often do you have six or more drinks on one occasion?: Never Total Score: 2 Score Reviewed/Action Taken: Yes BRYON-7 AMB Questionnaire BRYON-7 Date BRYON - 7 assessed: 07/11/24 Feeling nervous, anxious, or on edge: 0 = Not at all Not being able to stop or control worryin = Not at all Worrying too much about different things: 0 = Not at all Trouble relaxin = Not at all Being so restless that it is hard to sit still: 0 = Not at all Becoming easily annoyed or irritable: 0 = Not at all Feeling afraid as if something awful might happen: 0 = Not at all Total BRYON-7 score (0-4 normal; 5-9 mild; 10-14 moderate; 15-21 severe): 0 Source: Developed by Drs. Jorge Newton, Kelley Brown, Wilber Live and colleagues, with an educational ewelina from [employer]. Review of Systems Const Denies chills, Reports difficulty sleeping, Reports fatigue, Denies fever(s) and Denies headache(s) ENT Denies dysphagia, Denies dizziness, Denies otalgia, Denies headache(s), Denies neck pain, Denies odynophagia and Denies sore throat Card Denies chest pain, Denies palpitations and Denies dyspnea Resp Denies chest congestion, Denies cough and Denies dyspnea GI Denies abdominal pain, Denies constipation, Denies dysphagia, Denies heartburn, Denies diarrhea, Denies nausea, Denies odynophagia and Denies vomiting Denies difficulty voiding, Reports nocturia, Denies dysuria and Denies urinary urgency Musc Reports back pain (daily, over the lower back - see HPI for details), Reports arthralgias (diffuse - involving multiple joints), Reports muscle cramps (on and off in the legs, especially at night), Denies neck pain, Reports numbness (on and off, in the left hand) and Reports tingling (recurrent, in the left hand) Skin/Breast Details: (+) scattered hyperpigmented skin lesions and several slightly raised keratotic lesions Reports pruritus (all over often) and Denies rash Neuro Denies dizziness, Denies headache(s), Reports memory loss (feels that this is getting worse ), Reports numbness (on and off, in the left hand) and Reports tingling (recurrent, in the left hand) Psych Reports anxiety (mostly over her declining memory) and Reports memory loss (feels that this is getting worse ) Endo Reports fatigue and Denies palpitations Nicolas/Lymph Denies easy bruising Physical exam (Primary Care) Vital Signs: Last Vital Signs Pulse 73 07/11/24 09:30 BP 130/72 07/11/24 09:30 Pulse Ox 95 07/11/24 09:30 Oxygen Delivery Method Room Air 07/11/24 09:30 BMI result Body Mass Index 26.2 Tobacco/Smoking Status: Tobacco use Status Tobacco use date assessed 07/11/24 07/11/24 09:36 Patient Tobacco Use Status Former Tobacco user 07/11/24 09:36 Tobacco use type Cigarette 07/11/24 09:36 e-Cigarette/Vaping Use Never Used 07/11/24 09:36 PHQ-9: PHQ-9 Score PHQ-9: Total score 27 07/11/24 09:36 Depression Screening Interpretation: Positive Depression Screening Follow-up: Follow-up Visit Requested Thrive Assessment: Date of Thrive Assessment Date Thrive assessed 07/11/24 07/11/24 09:36 Currently or been in a relationship where the following occur: No concerns reported Const General: no acute distress and alert HENMT Ears: TM's normal bilaterally and EAC's normal Throat: Yes posterior oropharynx normal and Yes tonsils normal (no TP congestion) Neck Neck: Yes supple and No lymphadenopathy Thyroid: Thyroid normal Resp Auscultation: clear to auscultation bilaterally, no rales and no wheezes Cardio Rate: regular rate Rhythm: regular rhythm Heart sounds: no murmurs GI Palpation (GI): Soft to palpation and nontender Auscultation: normal bowel sounds General: Yes no CVA tenderness Back/Spine/Pelvis Back: no CVA tenderness Thoracic/Lumbar Spine: lumbar spinal tenderness Skin Other: (+) scattered hyperpigmented skin lesions and several slightly raised keratotic lesions Rashes: no rashes Extrem General: Yes no clubbing, cyanosis or edema Coding Level of Care Code Est Pt Level 4 (16618) Complex EM visit Add On G2211 Diagnoses Vascular dementia, unspecified dementia severity, unspecified whether behavioral, psychotic, or mood disturbance or anxiety F01.50 Dementia severity: unspecified severity Dementia behavioral or psychological symptom: unspecified whether behavioral, psychotic, or mood disturbance or anxiety Benign essential hypertension I10 Pure hypercholesterolemia E78.00 Impaired fasting glucose R73.01 Vitamin D deficiency E55.9 Carpal tunnel syndrome, bilateral G56.03 Osteopenia of multiple sites M85.89 Osteopenia location: multiple sites Nocturnal leg cramps G47.62 Chronic midline low back pain without sciatica M54.50; G89.29 Chronicity: chronic Back pain laterality: midline Sciatica presence: without sciatica Pruritus L29.9 Keratotic lesion L57.0 Insomnia, unspecified type G47.00 Insomnia type: unspecified Depression, unspecified depression type F32.A Depression Type: unspecified Overweight (BMI 25.0-29.9) E66.3 Additional Codes PHQ-9 - 74293 - PHQ-9 Billing: Yes ([id number]) Assessment & Plan Assessment & Plan (1) Vascular dementia: Code(s): F01.50 - Vascular dementia, unspecified severity, without behavioral disturbance, psychotic disturbance, mood disturbance, and anxiety Category: Medical Qualifiers: Dementia severity: unspecified severity Dementia behavioral or psychological symptom: unspecified whether behavioral, psychotic, or mood disturbance or anxiety Qualified Code(s): F01.50 - Vascular dementia, unspecified severity, without behavioral disturbance, psychotic disturbance, mood disturbance, and anxiety Plan: Patient was diagnosed with dementia by neurology a few years ago but she did not follow up again as she was not happy with her diagnosis Her brain MRI done on 02/02/2021 revealed (+) mild to moderate chronic microangiopathy and there is a 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 Chronic lacunar infarcts within the cerebellar hemispheres bilaterally. Otherwise, there are no acute findings Head/neck CTA done in February 2021 revealed that the right ANIMATION CAMERA OPERATOR segment demonstrate poor opacification of the P2 and more distal segments likely reflecting severe stenosis or residual thrombotic occlusion in the setting of prior infarction. Left P2 segment demonstrates moderate stenosis. Basilar artery and vertebral arteries are patent. Anterior circulation is patent She was advised on subsequent follow up that she has intracranial atherosclerosis and an old CVA She was also advised to start taking low dose Aspirin 81 mg QD (which she is still currently on), to keep her blood pressure controlled as best as she can and to continue on her low dose statin to help lower her cholesterol level She was referred back to Dr. Lopez last year due to her complaint of progressive memory decline and she was diagnosed with vascular dementia when she was seen in November 2023 She was started on Sertraline 25 mg with her mood/depression and Trazodone 100 mg to help her get better sleep at night Have advised patient previously that with dementia and cognitive decline, there are really no proven medications or supplements that can help improve one's memory and the best we can do in these situations is to help preserve what is left and to slow down cognitive decline as much as possible Have advised patient that the best way to go about this is with excellent control of blood pressure and cholesterol level in her case I have also advised that she should make sure she eats healthy, exercise regularly and to make sure she gets enough sleep at night as much as possible although she has been struggling with her sleep for a while now and this is likely what is contributing to her perceived increasing memory loss as well as persistent fatigue lately Have also advised that she should try to stay active mentally - reading, doing crossword puzzles, simple mental math exercises, and most importantly, going out in talking to people and staying engaged with social activities as these can help stimulate her brain and help slow down her mental decline Follow-up with neurology as scheduled (2) Benign essential hypertension: Code(s): I10 - Essential (primary) hypertension Category: Medical Plan: Reinforced low sodium diet - goal is systolic BP of at least 140 mm or less Continue Losartan 50 mg QD and Amlodipine 2.5 mg QD She was also on Furosemide 20 mg QD to help alleviate her edema but patient states that she has not needed to take this in a while now Patient is reminded to continue monitoring her blood pressure regularly (3) Pure hypercholesterolemia: Code(s): E78.00 - Pure hypercholesterolemia, unspecified Category: Medical Plan: Reinforced low cholesterol diet Continue Pravastatin 20 mg QD Will recheck her labs and fasting lipids in 4 months for follow up - have reminded patient of goal of getting her LDL cholesterol to at least <100 mg/dl (4) Impaired fasting glucose: Code(s): R73.01 - Impaired fasting glucose Category: Medical Plan: Patient's FBS was normal at 93 mg/dl on her recent labs; her HgbA1c was normal at 5.5% when previously checked Reinforced low calorie diet/exercise as tolerated (5) Vitamin D deficiency: Code(s): E55.9 - Vitamin D deficiency, unspecified Category: Medical Plan: Continue Vitamin D3 2000 units QD (6) Carpal tunnel syndrome, bilateral: Code(s): G56.03 - Carpal tunnel syndrome, bilateral upper limbs Category: Medical Plan: EMG and NCV done back in June 2022 confirmed (+) moderate CTS bilaterally She underwent right carpal tunnel release surgery with Dr. Macedo at [place] on 08/01/2023 with improvement of her symptoms It was also planned to have her get left CTS surgery done last month on 09/26/2023 but this appear to have been postponed at this time Follow up with orthopedics (Dr. Macedo) as scheduled (7) Osteopenia: Code(s): M85.80 - Other specified disorders of bone density and structure, unspecified site Category: Medical Qualifiers: Osteopenia location: multiple sites Qualified Code(s): M85.89 - Other specified disorders of bone density and structure, multiple sites Plan: Her BMD done back in January 2019 revealed (+) osteopenia Patient had her BMD done in 2020 through a [facility] screening - BMD was reportedly at 0.6 g/cm2 (was at 0.738 g/cm2 in the left hip in 2019) Patient is again encouraged to continue with daily calcium and Vitamin D supplements and regular exercise as tolerated; fall precautions also reinforced Will recheck her BMD again in 2 to 3 years for follow up - will order this at her next follow up appointment (8) Nocturnal leg cramps: Code(s): G47.62 - Sleep related leg cramps Category: Medical Plan: Continue OTC Magnesium oxide 400 mg Q PM (9) Low back pain: Code(s): M54.50 - Low back pain, unspecified Category: Medical Qualifiers: Chronicity: chronic Back pain laterality: midline Sciatica presence: without sciatica Qualified Code(s): M54.50 - Low back pain, unspecified; G89.29 - Other chronic pain Plan: Reinforced activity and weight-lifting restrictions Discussed with patient that this is likely due to degenerative disc disease She is advised that as long as she does not take more than a total of 2000 mg of Acetaminophen daily, she should be okay with how she is taking her extra-strength Tylenol at present Will send her for lumbar spine x-rays for further evaluation and advised that she can just get this done when she goes for her follow up labs in a few months (10) Pruritus: Code(s): L29.9 - Pruritus, unspecified Category: Medical Plan: Will start her on a trial of Doxepin 10 mg Q HS PRN (11) Keratotic lesion: Code(s): L57.0 - Actinic keratosis Category: Medical Plan: Will refer her to dermatology for further evaluation and management (12) Insomnia: Code(s): G47.00 - Insomnia, unspecified Category: Medical Qualifiers: Insomnia type: unspecified Qualified Code(s): G47.00 - Insomnia, unspecified Plan: Sleep hygiene reinforced She has tried OTC Melatonin previously up to 10 mg with NO relief; thinks that her trouble sleeping has more to do with anxiety She was started previously on Doxepin 25 mg Q HS PRN but patient apparently did not brain picker her Rx and has gone back to taking Melatonin She was also started on Trazodone by Dr. Lopez in November 2023 but patient did not start the Rx Have advised patient getting enough sleep is very important in helping to slow down her cognitive decline, especially since she has already been diagnosed with vascular dementia a couple of years ago Due to her recent recurrent itching, she will be started again on Doxepin at 10 mg Q HS and advised that this may also help with her sleep Have advised her to try this for now and hold off on Melatonin first (13) Depression: Code(s): F32.A - Depression, unspecified Category: Medical Qualifiers: Depression Type: unspecified Qualified Code(s): F32.A - Depression, unspecified Plan: Patient was started on Sertraline by Dr. Lopez a few months ago but she chose not to take the medication (14) Overweight (BMI 25.0-29.9): Code(s): E66.3 - Overweight Category: Medical Plan: Reinforced diet/exercise as tolerated/lose weight Plan Follow up as scheduled in October 2024 Orders: Orders XR lumbar spine 2-3V 10/02/24 M54.50 - Low back pain, unspecified Referrals Dermatology Referral L57.0 - Actinic keratosis Medications: New doxepin 10 mg PO BEDTIME 30 days PRN 30 caps 0RF itching
--- OUTSIDE RECORDS SUMMARY | 2024-07-11 09:40 | XMS_ITS | Clinical Summary ---
Author Organization [address] [facility] Address [address] [place] [address] Phone Care Team Providers Care Geometry Teacher Name Role Phone Ronnie Parr MD Primary [...] Team Description 04/30/2024 Telephone Orthopedic Surgery - [address] [id number] Maggie Macedo MD Cancel Surgery [...] topic Insurance [employer] Care Teams Geometry Teacher Relationship Specialty Start Date End Date Ronnie Parr MD [address] [place] [address] Dr Fausto Cota MA PCP - General 11/06/23
== END 2024-07-11 09:58 | disposition home or self-care (01) ==
LOC: HO.HMCH 09:24
PROVIDERS: PCP Internal Medicine; Visit Provider Internal Medicine
DX: F01.50 Vascular dementia, unspecified severity, without behavioral disturbance, psychotic disturbance, mood disturbance, and anxiety (principal); I10 Essential (primary) hypertension; E78.00 Pure hypercholesterolemia, unspecified; R73.01 Impaired fasting glucose; E55.9 Vitamin D deficiency, unspecified; G56.03 Carpal tunnel syndrome, bilateral upper limbs; M85.89 Other specified disorders of bone density and structure, multiple sites; G47.62 Sleep related leg cramps; M54.50 Low back pain, unspecified; G89.29 Other chronic pain; L29.9 Pruritus, unspecified; L57.0 Actinic keratosis; G47.00 Insomnia, unspecified; F32.A Depression, unspecified; E66.3 Overweight

== ENCOUNTER → 2024-07-11 09:23 | Outpatient (BNVA) | payer MEDICARE, SELFPAY | PROVIDERS: PCP Internal Medicine; Visit Provider Internal Medicine | DX: I10 Essential (primary) hypertension (principal); F01.50 Vascular dementia, unspecified severity, without behavioral disturbance, psychotic disturbance, mood disturbance, and anxiety; E78.00 Pure hypercholesterolemia, unspecified; R73.01 Impaired fasting glucose; E55.9 Vitamin D deficiency, unspecified; G56.03 Carpal tunnel syndrome, bilateral upper limbs; M85.89 Other specified disorders of bone density and structure, multiple sites; G47.62 Sleep related leg cramps; M54.50 Low back pain, unspecified; G89.29 Other chronic pain; L29.9 Pruritus, unspecified; L57.0 Actinic keratosis; G47.00 Insomnia, unspecified; F32.A Depression, unspecified; E66.3 Overweight; Z68.26 Body mass index [BMI] 26.0-26.9, adult; Z79.899 Other long term (current) drug therapy; Z13.31 Encounter for screening for depression; Z13.30 Encounter for screening examination for mental health and behavioral disorders, unspecified | CPT/HCPCS: 96127; 99212 ==

== ENCOUNTER 2024-10-09 09:11 | Outpatient (REF) | payer MEDICARE, SELFPAY ==
--- NOTE | ~2024-10-09 | XR_ITS ---
EXAMINATION: XR LUMBAR SPINE 2-3 VIEWS HISTORY: M54.50 - Low back pain, unspecified COMPARISON: There are no prior studies for comparison. FINDINGS: AP, lateral, and coned down views of the lumbar spine are submitted. Osseous mineralization is normal. Five nonrib-bearing lumbar vertebral bodies are identified, maintaining normal height and alignment without evidence of fracture or spondylolisthesis. There is moderate degenerative disc disease at the L4-5 level, with disc space narrowing, osteophyte formation, and vacuum phenomenon. Milder changes are noted at the remaining levels. There is osteoarthritis of the facet joints. There is calcification of the abdominal aorta. XR/XR lumbar spine 2-3V IMPRESSION: Degenerative disc disease of the lumbar spine as described. Electronically signed by: Jorge Gould MD 10/09/2024 10:01 AM EDT
[2024-10-09 09:26] LABS: MANUAL DIFF FLAG NO
[2024-10-09 09:51] LABS: Hematocrit 35.1 % (37.0-47.0); Hemoglobin 11.6 g/dl (12.0-16.0); Imm Gran Abs Auto 0.02 X10*3/uL (0.00-0.03); Imm Gran Pct Auto 0.3 % (0.0-0.4); Lymphocytes Absolute Auto 1.8 X10*3/uL (1.2-4.9); Mean Corpuscular HGB Conc 33.0 g/dl (31.0-35.0); Mean Corpuscular Hemoglobin 31.0 pg (27.0-33.0); Mean Corpuscular Volume 93.9 fL (80.0-98.0); NRBC Abs Auto 0.000 X10*3/uL (0.0-0.012); NRBC Pct Auto 0.0 /100WBC (0.0-0.2); Platelet Count 251 X10*3/uL (160-400); Red Blood Count 3.74 X10*6/uL (4.20-5.50); White Blood Count 5.9 X10*3/uL (4.8-10.8)
--- OUTSIDE RECORDS SUMMARY | 2024-10-09 10:12 | XMS_ITS | Clinical Summary ---
Author Organization [address] [facility] Address [address] [place] [address] Phone Care Team Providers Care Professor Of Early Childhood Education Name Role Phone Ronnie Parr MD Primary [...] 10/27/2022 Essential hypertension 08/08/2017 Over weight 08/08/2017 Immunizations Name Administration Dates Next Due Influenza [...] 10/16/2021 08/21/2021 Cholesterol Screening (Lipid Panel) 03/16/2023 Falls Risk Assessment 03/16/2023 Hepatitis C Screening 03/16/2023 Hypertension/CHF/CAD Annual BMP Blood Test 03/16/2023 Medicare Annual Wellness Visit 03/16/2023 Osteoporosis Screening (Bone Density Screening) 03/16/2023 Social Influencers of Health Screening 03/16/2023 Depression Screening 02/13/2024 COVID-19 Vaccine ( season) 2024 10/12/2023, 02/21/2021, 06/28/2020, Additional history exists Influenza Vaccine (#1) 2024 , 09/13/2022, 11/04/2020, Additional history exists DTaP,Tdap,and Td Vaccines (2 - Td or Tdap) 12/31/2028 12/31/2018 RSV Immunization Adult Patients Completed 10/12/2023 HIB [...] patient's age to complete this topic Insurance [address] [place] [id number] [employer] MED[employer] Care Teams Professor Of Early Childhood Education Relationship Specialty Start Date End Date Ronnie Parr MD [address] [place] [address] Dr Fausto Cota MA PCP - General 11/06/23
[2024-10-09 10:25] LABS: Alanine Aminotransferase 26 U/L (0-31); Albumin Level 4.1 g/dL (3.5-5.0); Alkaline Phosphatase 75 U/L (39-117); Anion Gap 8 (12-20); Aspartate Amino Transferase 28 U/L (5-31); Blood Urea Nitrogen 17 mg/dL (9-16); Calcium 9.5 mg/dL (8.4-10.2); Carbon Dioxide 26 mmol/L (22-29); Chloride 109 mmol/L (96-108); Cholesterol 186 mg/dL (<200); Estimated Glomerular Filt Rate > 60; HDL Cholesterol 53 mg/dL (>40); Potassium 4.0 mmol/L (3.3-5.1); Sodium 139 mmol/L (135-145); Total Protein 6.3 g/dL (6.5-8.0); Triglycerides 93 mg/dL (<150)
== END 2024-10-09 09:12 | disposition home or self-care (01) ==
LOC: HO.XRAY 09:11
PROVIDERS: PCP Internal Medicine; Visit Provider Internal Medicine
DX: E78.00 Pure hypercholesterolemia, unspecified (principal); D64.9 Anemia, unspecified; M54.50 Low back pain, unspecified
CPT/HCPCS: 36415; 72100; 80053; 80061; 85025

== ENCOUNTER → 2024-10-09 09:26 | Outpatient (BNV) | payer MEDICARE, SELFPAY | PROVIDERS: PCP Internal Medicine; Visit Provider Radiology Diagnostic Radiology | DX: M51.360 Other intervertebral disc degeneration, lumbar region with discogenic back pain only (principal) | CPT/HCPCS: 72100 ==

== ENCOUNTER 2024-10-14 10:31 | Outpatient (AMB) | payer MEDICARE, SELFPAY ==
--- NOTE | 2024-10-14 10:34 | A.OFFPC_ITS ---
Vital Signs 10/14/24 10:35 Height 5 ft 6 in Weight 166 lb 4 oz BMI 26.8 BP 140/68 H Blood Pressure Location Lt brachial Position Sitting Pulse 70 Pulse Source Pulse Oximeter Temp 97.7 F Temp Source Temporal Artery Scan Pulse Oximetry (%) 98 Oxygen Delivery Method Room Air Intake Visit Reasons: HTN, hyperlipidemia Intake Note: Patient is here to follow up on HLD, HTN. Medical Device Sales Representative Required: No Cloth Desizing Range Operator Chief: Not Required per policy Accompanied by: Self / Same As Patient Allergies iohexol (From [facility]) Adverse Reaction (Verified 10/14/24 10:58) Hives Medication List - Last Reconciled 10/14/24 by Ronnie Parr MD amlodipine 2.5 mg PO DAILY aspirin 81 mg PO DAILY [id number] 1.7 mg-400 mcg- 2.4 mcg (Neuriva Plus Brain Performance) 1 cap PO BEDTIME 90 days cholecalciferol (vitamin D3) 50 mcg PO DAILY 90 days cyclobenzaprine 10 mg PO BEDTIME PRN cyclosporine 0.05% (Restasis) 1 drp ophthalmic (eye) DAILY doxepin 10 mg PO BEDTIME PRN 30 days losartan 50 mg PO DAILY 90 days magnesium oxide 400 mg PO DAILY 90 days mecobalamin (vitamin B12) 1,000 mcg sublingual DAILY pravastatin 40 mg PO DAILY 90 days Tobacco use date assessed: 10/14/24 Fall risk assessment: No Falls in past year Last assessed Fall Risk: 10/14/24 Dental Screening Dental Screen Date: 07/11/24 HPI HTN, hyperlipidemia HPI Details Patient comes in today for her follow-up visit States that she feels okay but continues to experience increased swelling of her feet often lately She denies any headaches or dizziness Denies any chest pains, no increased shortness of breath No nausea/vomiting, no abdominal pain No change in bowel habits noted She had her follow-up labs done a few days ago - to discuss her results [facility] Medical History Vitamin D deficiency Insomnia Memory impairment Osteopenia Arthralgia Myalgia Blurring of vision Overweight (BMI 25.0-29.9) Benign essential hypertension Pure hypercholesterolemia Surgical History (Updated 10/14/24 @ 10:43 by ALEJANDRO Guerrero) History of dental surgery History of bunionectomy Family History Father No problems noted. Mother No problems noted. Social History Housing: Condominium Alcohol intake: current Alcohol intake frequency: holidays/special occasions only Alcohol type: wine Patient Tobacco Use Status: Former Tobacco user Tobacco use type: Cigarette e-Cigarette/Vaping Use: Never Used Second Hand Smoke Exposure: Yes service: No Current occupational status: retired Cognitive needs: No Hearing needs: No Vision needs: Yes (reading glasses) Questionnaire PHQ-9 Over the last 2 weeks, how often have you been bothered by any of the following problems? Depression Screening Interpretation: Positive Depression Screening Follow-up: F ollow-up Visit Requested Depression Screening Done: Yes Source: Developed by Drs. Jorge Newton, Kelley Brown, Wilber Live and colleagues, with an educational ewelina from [employer]. Thrive Questionnaire Date Thrive assessed: 07/04/24 I am a: Patient What is your living situation today?: I have a steady place to live Within the past 12 months, did the food you bought not last and you didn't have the money to get more?: Never true Within the past 12 months, did you worry whether your food would run out before you got money to buy more?: Never true Do you have trouble paying for medicines?: No Do you have trouble getting transportation to medical appointments?: No Do you have trouble paying your heating and electricity bill?: No Do you have trouble taking care of your child, family member or friend?: No Do you have trouble with day-to-day activities such as bathing, preparing meals, shopping, managing finances, etc.?: No Are you currently unemployed and looking for a job?: No Are you interested in more education?: No Please select the resources that you would like help with: None Currently or been in a relationship where the following occur: No concerns reported THRIVE Score: 0 BRYON-7 AMB Questionnaire BRYON-7 Date BRYON - 7 assessed: 07/11/24 Source: Developed by Drs. Jorge Newton, Kelley Brown, Wilber Live and colleagues, with an educational ewelina from [employer]. Review of Systems Const Denies chills, Reports difficulty sleeping, Reports fatigue, Denies fever(s) and Denies headache(s) ENT Denies dysphagia, Denies dizziness, Denies otalgia, Denies headache(s), Denies neck pain, Denies odynophagia and Denies sore throat Card Denies chest pain, Denies palpitations and Denies dyspnea Resp Denies chest congestion, Denies cough and Denies dyspnea GI Denies abdominal pain, Denies constipation, Denies dysphagia, Denies heartburn, Denies diarrhea, Denies nausea, Denies odynophagia and Denies vomiting Denies difficulty voiding, Reports nocturia, Denies dysuria and Denies urinary urgency Musc Reports back pain (daily, over the lower back - see HPI for details), Reports arthralgias (diffuse - involving multiple joints), Reports muscle cramps (on and off in the legs, especially at night), Denies neck pain, Reports numbness (on and off, in the left hand) and Reports tingling (recurrent, in the left hand) Skin/Breast Denies rash Neuro Denies dizziness, Denies headache(s), Reports memory loss (feels that this is getting worse ), Reports numbness (on and off, in the left hand) and Reports tingling (recurrent, in the left hand) Psych Reports anxiety (mostly over her declining memory) and Reports memory loss (feels that this is getting worse ) Endo Reports fatigue and Denies palpitations Nicolas/Lymph Denies easy bruising Physical exam (Primary Care) Vital Signs: Last Vital Signs Temp 97.7 F 10/14/24 10:35 Pulse 70 10/14/24 10:35 BP 140/68 H 10/14/24 10:35 Pulse Ox 98 10/14/24 10:35 Oxygen Delivery Method Room Air 10/14/24 10:35 BMI result Body Mass Index 26.8 Tobacco/Smoking Status: Tobacco use Status Tobacco use date assessed 10/14/24 10/14/24 10:41 Patient Tobacco Use Status Former Tobacco user 10/14/24 10:41 Tobacco use type Cigarette 10/14/24 10:41 e-Cigarette/Vaping Use Never Used 10/14/24 10:41 Depression Screening Interpretation: Positive Depression Screening Follow-up: Follow-up Visit Requested Thrive Assessment: Date of Thrive Assessment Date Thrive assessed 07/04/24 10/14/24 10:41 Currently or been in a relationship where the following occur: No concerns reported Const General: no acute distress and alert HENMT Ears: TM's normal bilaterally and EAC's normal Throat: Yes posterior oropharynx normal and Yes tonsils normal (no TP congestion) Neck Neck: Yes supple and No lymphadenopathy Thyroid: Thyroid normal Resp Auscultation: clear to auscultation bilaterally, no rales and no wheezes Cardio Rate: regular rate Rhythm: regular rhythm Heart sounds: no murmurs GI Palpation (GI): Soft to palpation and nontender Auscultation: normal bowel sounds General: Yes no CVA tenderness Back/Spine/Pelvis Back: no CVA tenderness Thoracic/Lumbar Spine: lumbar spinal tenderness Skin Rashes: no rashes Extrem General: Yes no clubbing, cyanosis or edema Results Reviewed Results Reviewed: Laboratory Tests 10/09/24 09:24 WBC 5.9 Hgb 11.6 L Hct 35.1 L Plt Count 251 Sodium 139 Potassium 4.0 Creatinine 0.75 Estimated GFR > 60 Fasting Glucose 100 H Calcium 9.5 D AST 28 ALT 26 Triglycerides 93 Cholesterol 186 LDL Cholesterol, Calc 115 H HDL Cholesterol 53 Coding Level of Care Code Est Pt Level 4 (13537) Diagnoses Benign essential hypertension I10 Edema of both feet R60.0 Pure hypercholesterolemia E78.00 Vascular dementia, unspecified dementia severity, unspecified whether behavioral, psychotic, or mood disturbance or anxiety F01.50 Dementia severity: unspecified severity Dementia behavioral or psychological symptom: unspecified whether behavioral, psychotic, or mood disturbance or anxiety Impaired fasting glucose R73.01 Vitamin D deficiency E55.9 Carpal tunnel syndrome, bilateral G56.03 Osteopenia of multiple sites M85.89 Osteopenia location: multiple sites Nocturnal leg cramps G47.62 Chronic midline low back pain without sciatica M54.50; G89.29 Chronicity: chronic Back pain laterality: midline Sciatica presence: without sciatica Insomnia, unspecified type G47.00 Insomnia type: unspecified Depression, unspecified depression type F32.A Depression Type: unspecified Overweight (BMI 25.0-29.9) E66.3 Assessment & Plan Assessment & Plan (1) Benign essential hypertension: Code(s): I10 - Essential (primary) hypertension Category: Medical Plan: Reinforced low sodium diet - goal is systolic BP of at least 140 mm or less Due to her frequent/recurrent pedal edema lately, will go ahead and STOP her Amlodipine 2.5 mg QD - discussed with patient that it is very likely that her recent edema is a side effect of her Amlodipine Will increase her Losartan from 50 mg to 100 mg QD She was also on Furosemide 20 mg QD to help alleviate her edema but patient states that she has not needed to take this in a while now Patient is reminded to continue monitoring her blood pressure regularly (2) Edema of both feet: Code(s): R60.0 - Localized edema Category: Medical Plan: This is most likely a side effect of her Amlodipine Rx, which will be discontinued today (3) Pure hypercholesterolemia: Code(s): E78.00 - Pure hypercholesterolemia, unspecified Category: Medical Plan: Results of her labs done a few days ago reviewed and discussed with patient - she is cautioned that her LDL cholesterol has increased from previous by at least 20 points - goal is getting her LDL cholesterol to at least <100 mg/dl Reinforced low cholesterol diet Continue Pravastatin 20 mg QD Will recheck her labs and fasting lipids in 4 months for follow up (4) Vascular dementia: Code(s): F01.50 - Vascular dementia, unspecified severity, without behavioral disturbance, psychotic disturbance, mood disturbance, and anxiety Category: Medical Qualifiers: Dementia severity: unspecified severity Dementia behavioral or psychological symptom: unspecified whether behavioral, psychotic, or mood disturbance or anxiety Qualified Code(s): F01.50 - Vascular dementia, unspecified severity, without behavioral disturbance, psychotic disturbance, mood disturbance, and anxiety Plan: Patient was diagnosed with dementia by neurology a few years ago but she did not follow up again as she was not happy with her diagnosis Her brain MRI done on 02/02/2021 revealed (+) mild to moderate chronic microangiopathy and 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 Chronic lacunar infarcts within the cerebellar hemispheres bilaterally. Otherwise, there are no acute findings Head/neck CTA done in February 2021 revealed that the right RAIL DIRECTOR segment demonstrate poor opacification of the P2 and more distal segments likely reflecting severe stenosis or residual thrombotic occlusion in the setting of prior infarction. Left P2 segment demonstrates moderate stenosis. Basilar artery and vertebral arteries are patent. Anterior circulation is patent She was advised on subsequent follow up that she has intracranial atherosclerosis and an old CVA She was also advised to start taking low dose Aspirin 81 mg QD (which she is still currently on), to keep her blood pressure controlled as best as she can and to continue on her low dose statin to help lower her cholesterol level She was referred back to Dr. Lopez last year due to her complaint of progressive memory decline and she was diagnosed with vascular dementia when she was seen in November 2023 She was started on Sertraline 25 mg with her mood/depression and Trazodone 100 mg to help her get better sleep at night Have advised patient previously that with dementia and cognitive decline, there are really no proven medications or supplements that can help improve one's memory and the best we can do in these situations is to help preserve what is left and to slow down cognitive decline as much as possible Have advised patient that the best way to go about this is with excellent control of blood pressure and cholesterol level in her case I have also advised that she should make sure she eats healthy, exercise regularly and to make sure she gets enough sleep at night as much as possible although she has been struggling with her sleep for a while now and this is likely what is contributing to her perceived increasing memory loss as well as persistent fatigue lately Have also advised that she should try to stay active mentally - reading, doing crossword puzzles, simple mental math exercises, and most importantly, going out in talking to people and staying engaged with social activities as these can help stimulate her brain and help slow down her mental decline Follow-up with neurology as scheduled (5) Impaired fasting glucose: Code(s): R73.01 - Impaired fasting glucose Category: Medical Plan: Patient's FBS was normal at 100 mg/dl on her recent labs; her HgbA1c was normal at 5.5% when previously checked Reinforced low calorie diet/exercise as tolerated (6) Vitamin D deficiency: Code(s): E55.9 - Vitamin D deficiency, unspecified Category: Medical Plan: Continue Vitamin D3 2000 units QD (7) Carpal tunnel syndrome, bilateral: Code(s): G56.03 - Carpal tunnel syndrome, bilateral upper limbs Category: Medical Plan: EMG and NCV done back in June 2022 confirmed (+) moderate CTS bilaterally She underwent right carpal tunnel release surgery with Dr. Macedo at [place] on 08/01/2023 with improvement of her symptoms It was also planned to have her get left CTS surgery done last month on 09/26/2023 but this appear to have been postponed at this time Follow up with orthopedics (Dr. Macedo) as scheduled (8) Osteopenia: Code(s): M85.80 - Other specified disorders of bone density and structure, unspecified site Category: Medical Qualifiers: Osteopenia location: multiple sites Qualified Code(s): M85.89 - Other specified disorders of bone density and structure, multiple sites Plan: Her BMD done back in January 2019 revealed (+) osteopenia Patient had her BMD done in 2020 through a [facility] screening - BMD was reportedly at 0.6 g/cm2 (was at 0.738 g/cm2 in the left hip in 2019) Patient is again encouraged to continue with daily calcium and Vitamin D supplements and regular exercise as tolerated; fall precautions also reinforced Will recheck her BMD again in 2 to 3 years for follow up - will order this at her next follow up appointment (9) Nocturnal leg cramps: Code(s): G47.62 - Sleep related leg cramps Category: Medical Plan: Continue OTC Magnesium oxide 400 mg Q PM (10) Low back pain: Code(s): M54.50 - Low back pain, unspecified Category: Medical Qualifiers: Chronicity: chronic Back pain laterality: midline Sciatica presence: without sciatica Qualified Code(s): M54.50 - Low back pain, unspecified; G89.29 - Other chronic pain Plan: Reinforced activity and weight-lifting restrictions Lumbar spine x-rays done a few days ago revealed (+) moderate degenerative disc disease at the L4-5 level, with disc space narrowing, osteophyte formation, and vacuum phenomenon. Milder changes are noted at the remaining levels. There is osteoarthritis of the facet joints She is advised that as long as she does not take more than a total of 2000 mg of Acetaminophen daily, she should be okay with how she is taking her extra- strength Tylenol at present (11) Insomnia: Code(s): G47.00 - Insomnia, unspecified Category: Medical Qualifiers: Insomnia type: unspecified Qualified Code(s): G47.00 - Insomnia, unspecified Plan: Sleep hygiene reinforced She has tried OTC Melatonin previously up to 10 mg with NO relief; thinks that her trouble sleeping has more to do with anxiety She was started previously on Doxepin 25 mg Q HS PRN but 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 Lopez in November 2023 but patient did not start the Rx Have advised patient getting enough sleep is very important in helping to slow down her cognitive decline, especially since she has already been diagnosed with vascular dementia a couple of years ago Due to her recent recurrent itching, she will be started again on Doxepin at 10 mg Q HS and advised that this may also help with her sleep (12) Depression: Code(s): F32.A - Depression, unspecified Category: Medical Qualifiers: Depression Type: unspecified Qualified Code(s): F32.A - Depression, unspecified Plan: Patient was started on Sertraline by Dr. Lopez a few months ago but she chose not to take the medication (13) Overweight (BMI 25.0-29.9): Code(s): E66.3 - Overweight Category: Medical Plan: Reinforced diet/exercise as tolerated/lose weight Plan Follow up in 4 months Orders: Orders Comprehensive Ralph. Panel Fast 4 Months E78.00 - Pure hypercholesterolemia, unspecified Hemoglobin A1c 4 Months R73.01 - Impaired fasting glucose UA CC w/rflx Micro + Cult 4 Months R30.0 - Dysuria Lipid Panel 4 Months E78.00 - Pure hypercholesterolemia, unspecified Medications: Changed From losartan 50 mg PO DAILY 90 days 90 tabs 1RF To losartan 100 mg PO DAILY 90 tabs 1RF 90 days Discontinued amlodipine Discontinued Reason: Doctor's Order 2.5 mg PO DAILY 90 tabs 0RF
[2024-10-14 10:35] VITALS: BP 140/68; PULSE 70; TEMP 36.5; O2SAT 98; BMI 26.8
--- OUTSIDE RECORDS SUMMARY | 2024-10-14 12:04 | XMS_ITS | Clinical Summary ---
Author Organization [address] [facility] Address [address] [place] [address] Phone Care Team Providers Care Rolled Materials Worker Name Role Phone Ronnie Parr MD Primary Care Provider [phone] Allergies No known active allergies Medications acetaminophen [...] patient's age to complete this topic Insurance [place] [address] [address] [employer] Care Teams Rolled Materials Worker Relationship Specialty Start Date End Date Ronnie Parr MD [address] [place] [address] Dr Fausto Cota [place] PCP - General 11/06/23
== END 2024-10-14 11:13 | disposition home or self-care (01) ==
LOC: HO.HMCH 10:32
PROVIDERS: PCP Internal Medicine; Visit Provider Internal Medicine
DX: I10 Essential (primary) hypertension (principal); R60.0 Localized edema; E78.00 Pure hypercholesterolemia, unspecified; F01.50 Vascular dementia, unspecified severity, without behavioral disturbance, psychotic disturbance, mood disturbance, and anxiety; R73.01 Impaired fasting glucose; E55.9 Vitamin D deficiency, unspecified; G56.03 Carpal tunnel syndrome, bilateral upper limbs; M85.89 Other specified disorders of bone density and structure, multiple sites; G47.62 Sleep related leg cramps; M54.50 Low back pain, unspecified; G89.29 Other chronic pain; G47.00 Insomnia, unspecified; F32.A Depression, unspecified; E66.3 Overweight

== ENCOUNTER → 2024-10-14 10:31 | Outpatient (BNVA) | payer MEDICARE, SELFPAY | PROVIDERS: PCP Internal Medicine; Visit Provider Internal Medicine | DX: I10 Essential (primary) hypertension (principal); E78.5 Hyperlipidemia, unspecified; R60.0 Localized edema; E78.00 Pure hypercholesterolemia, unspecified; F01.50 Vascular dementia, unspecified severity, without behavioral disturbance, psychotic disturbance, mood disturbance, and anxiety; R73.01 Impaired fasting glucose; E55.9 Vitamin D deficiency, unspecified; G56.03 Carpal tunnel syndrome, bilateral upper limbs; M85.89 Other specified disorders of bone density and structure, multiple sites; G47.62 Sleep related leg cramps; M54.50 Low back pain, unspecified; G89.29 Other chronic pain; G47.00 Insomnia, unspecified; F32.A Depression, unspecified; E66.3 Overweight; R30.0 Dysuria | CPT/HCPCS: 99212 ==

== ENCOUNTER 2025-01-19 11:22 | Outpatient (REF) | payer MEDICARE, SELFPAY ==
--- NOTE | ~2025-01-19 | XR_ITS ---
EXAMINATION: XR CHEST CLINICAL INFORMATION: R05.9 - Cough, unspecified COMPARISON: December 17, 2018 TECHNIQUE: PA and lateral views FINDINGS: Pulmonary reticular pattern. No consolidation, pleural effusion or pneumothorax. Cardiomediastinal silhouette size is normal. Calcified plaque thoracic aorta. Tortuosity descending thoracic aorta. Multilevel thoracolumbar spondylosis. Osteopenia versus osteoporosis. Multilevel 20% volume loss of the vertebral bodies and the mid thoracic spine. S-shaped curvature of the thoracolumbar spine. Calcification at the left supraspinatus tendon insertion. XR/XR chest 2V IMPRESSION: Chronic interstitial lung disease. No acute airspace disease. Multilevel spondylosis and thoracolumbar scoliosis. Calcific tendinosis/tendinopathy, left supraspinatus. Electronically signed by: Lukasz Lua MD 01/19/2025 01:21 PM EST
[2025-01-19 17:21] LABS: Resp Syncy Virus RNA Qual PCR NEGATIVE (Negative); SARS COV2 PCR INHOUSE NEGATIVE (Negative)
== END 2025-01-19 11:23 | disposition home or self-care (01) ==
LOC: HO.HMGCX 11:22
PROVIDERS: PCP Internal Medicine; Visit Provider Physician Assistant Medical
DX: J06.9 Acute upper respiratory infection, unspecified (principal); R05.9 Cough, unspecified; R09.81 Nasal congestion; R09.89 Other specified symptoms and signs involving the circulatory and respiratory systems; Z87.891 Personal history of nicotine dependence
CPT/HCPCS: 71046; 87637; 99212

== ENCOUNTER 2025-01-19 11:22 | Outpatient (AMB) | payer MEDICARE, SELFPAY ==
[2025-01-19 11:59] VITALS: BP 186/70; PULSE 95; TEMP 36.5; O2SAT 97; BMI 26.8
--- NOTE | 2025-01-19 11:59 | AM.OFFWIN_ITS ---
Intake Vital Signs 01/19/25 11:59 Height 5 ft 6 in Weight 166 lb BMI 26.8 BP 186/70 H Blood Pressure Location Lt brachial Position Sitting Pulse 95 Pulse Source Pulse Oximeter Temp 97.7 F Temp Source Oral Pulse Oximetry (%) 97 Oxygen Delivery Method Room Air Intake Visit Reasons: EP Phlegm, cough, congestion, sore throat, fatigue Intake Note: pt presents with dry coughing, fatigue, on/off sore throat, chapped lips with peeling, sinus congestion with phlegm in throat x3 weeks Patient Tobacco Use Status: Former Tobacco user Allergies iohexol (From [facility]) Adverse Reaction (Verified 01/19/25 12:03) Hives Do you need a note to return to daycare/school/sports/work: No HPI HPI Comments History of Present Illness Details History - The patient is a 80-year-old female pr esenting with a 2-3 week history of malaise. - She reports symptoms of fatigue, lack of energy, and a dry cough, accompanied by phlegm in her nose and throat that is not productive with coughing. - The patient also notes chapped lips fo r three weeks, an on-and-off sore throat, and external ear pain. - She has no sick contacts or recent tra gonzales. - She denies any history of fever but is concerned about a possible COVID-19 infection, having had it twice before. - The patient has a history of hypertens ion and did not take her blood pressure medication today, noting a reading of 186 mmHg systolic. - She reports adequate fluid intake. - She denies fever, chills, CP, SOB, abd pain, n/v/d, SANDOVAL, ear pain or sore throat. Physical Exam General: Cooperative, healthy appearing, comfortable and no acute distress Orientation/consciousness: Patient oriented x3 Limitations: No limitations Head: Normal to inspection Ears: Hearing grossly normal bilaterally, external ears normal and TM's normal bilaterally. Nose: Normal external nose present, normal nares present, and no nasal discharge present. Face and sinus: Sinuses nontender to palpation. Mouth: Normal oral and palatal mucosa present and moist mucous membranes noted. Throat: Tonsils normal. Uvula is midline. Posterior oropharynx with erythema and no exudates. Eyes: Appearance normal, both eyes and all related structures Neck: Normal visual inspection, full ROM. No lymphadenopathy noted. Respiratory: Clear to auscultation bilaterally. Normal respiratory effort, able to speak in complete sentences. No respiratory distress, not tachypneic, no tripod positioning and no use of accessory muscles. Cardiovascular: Regular rate and rhythm. Normal S1 and S2. No m/r/g noted. Skin: No rashes or lesions noted Patient was informed and verbally consented to the use of an ambient scribe for clinic note documentation during this visit [facility] Medical History Vitamin D deficiency Insomnia Memory impairment Osteopenia Arthralgia Myalgia Blurring of vision Overweight (BMI 25.0-29.9) Benign essential hypertension Pure hypercholesterolemia Surgical History (Updated 10/14/24 @ 10:43 by ALEJANDRO Guerrero) History of dental surgery History of bunionectomy Family History Father No problems noted. Mother No problems noted. Social History Housing: Condominium Alcohol intake: current Alcohol intake frequency: holidays/special occasions only Alcohol type: wine Patient Tobacco Use Status: Former Tobacco user Tobacco use type: Cigarette e-Cigarette/Vaping Use: Never Used Second Hand Smoke Exposure: Yes service: No Current occupational status: retired Cognitive needs: No Hearing needs: No Vision needs: Yes (reading glasses) Review of Systems Const All systems reviewed & are unremarkable except as noted in HPI and below Physical Exam Vital Signs: Last Vital Signs Temp 97.7 F 01/19/25 11:59 Pulse 95 01/19/25 11:59 BP 186/70 H 01/19/25 11:59 Pulse Ox 97 01/19/25 11:59 Oxygen Delivery Method Room Air 01/19/25 11:59 BMI result Body Mass Index 26.8 Assessment & Plan Assessment & Plan (1) URI with cough and congestion: Code(s): J06.9 - Acute upper respiratory infection, unspecified Plan Most likely URI vs CAP vs covid vs flu vs RSV plan - tylenol or motrin as needed for pain or fever - tessalon perles as needed for cough - Due to the prolonged duration of symptoms, a chest x-ray will be performed to rule out pneumonia. - A nasal swab will be collected for a respiratory panel to rule out COVID-19, RSV, and influenza. - An antibiotic will be prescribed to address a possible secondary bacterial infection. - The patient will be contacted by phone with the results of the chest x-ray and the respiratory panel. Orders: Orders XR chest 2V Today R05.9 - Cough, unspecified SARS-CoV2/FLU/RSV Today R09.89 - Other specified symptoms and signs involving the circulatory and respiratory systems Medications: New azithromycin For 250 mg dose pack: take 500 mg today (day 1), then 250 mg for 4 days (days 2-5) PO 6 tabs 0RF benzonatate 100 mg PO bid-tid PRN 21 caps 0RF Cough 7 days Coding Level of Care Code Est Pt Level 4 (67218) Diagnoses URI with cough and congestion J06.9
== END 2025-01-19 13:12 | disposition home or self-care (01) ==
PROVIDERS: PCP Internal Medicine; Visit Provider Physician Assistant Medical
DX: J06.9 Acute upper respiratory infection, unspecified (principal)

== ENCOUNTER → 2025-01-19 13:04 | Outpatient (BNV) | payer MEDICARE, SELFPAY | PROVIDERS: PCP Internal Medicine; Visit Provider Radiology Diagnostic Radiology | DX: J84.9 Interstitial pulmonary disease, unspecified (principal); M47.815 Spondylosis without myelopathy or radiculopathy, thoracolumbar region | CPT/HCPCS: 71046 ==

== ENCOUNTER 2025-02-10 09:06 | Outpatient (REF) | payer MEDICARE, SELFPAY ==
[2025-02-10 10:51] LABS: Appearance Urine Cloudy; Glucose Urine UA Negative (Negative); PH 7.5 (5.0-9.0); Specific Gravity - Urine 1.015 (1.005-1.025)
--- OUTSIDE RECORDS SUMMARY | 2025-02-10 11:24 | XMS_ITS | Clinical Summary ---
Author Organization [facility] Address [address] [place] [address] Phone Care Team Providers Care Operating Room Surgical Technologist Name Role Phone Ronnie Parr MD Primary [...] Noted Date Diagnosed Date Carpal tunnel syndrome of left wrist 02/04/2024 Left carpal tunnel syndrome 10/27/2022 Right carpal tunnel syndrome 10/27/2022 Trigger finger, left middle finger 10/27/2022 Essential hypertension 08/08/2017 Over weight 08/08/2017 Encounters Date Type Department Care Team Description 12/02/2024 2:45 PM EDT Consult Orthopedic Surgery [facility] 175 [facility] [address] [place] [address] Maggie Macedo MD Carpal tunnel syndrome of left wrist (Primary Dx) 11/18/2024 Telephone Orthopedic Surgery [facility] [address] [facility] [address] [place] [address] Maggie Macedo MD from Last 3 Months Immunizations Immunization Administration Dates Next Due Influenza Quadravalent, 0.5m l (Fluad) 65yo and older 11/04/2020,10/13/2019 Influenza Quadrivalent, 0.5m l, preservative free (Fluarix; FluLaval; Fluzone) ages 6mo and older (Afluria) 3yo and older 09/13/2022 Influenza trivalent, 0.5mL ( Fluzone High-dose) 65yo and older 10/12/2023,11/21/2018,11/01/2018,11/12,12/24/2015 Pneumococcal polysaccharide 23 valent (Pneumovax 23) 2yo and older 06/28/2018 RSV, bivalent, protein subun it RSVpreF, 0.5mL, Preservative Free (Arexvy) 50yo and older 10/12/2023 Td Tetanus diptheria (Tdvax) 7yo and older 12/31/2018 Zoster recombinant (Shingrix ) 19yo and older 08/21/2021 Surgical History Surgery Date Site/Laterality Comments BUNIONECTOMY PROCEDURE: BUNION SURGERY, SIMPLE REMOVAL; COMMENT: bilateral CARPAL TUNNEL RELEASE 2022 Medical History Medical History Date Comments Essential hypertension 08/08/2017 DX:Essent ial hypertension Over weight 08/08/2017 DX:Over weight Family History Medical History Relation Name Comments Other: healthy Father Other: healthy Mother Relation Name Status Comments Father Mother Social History Tobacco Use Types Packs/Day Years Used Date Smoking Tobacco: Former Cigarettes 0 Q uit: 08/08/1981 Smokeless Tobacco: Never Alcohol Use Standard Drinks/Week Comments No 0 (1 standard drink = 0.6 oz pur e alcohol) Comments Unknown Sex and Gender Information Value Date Recorded Sex Assigned at Not on file Legal Sex Female 10:31 PM EST Gender Identity Not on file Sexual Orientation Not on file Last Filed Vital Signs Vital Sign Reading Time Taken Comments Blood Pressure 185/81 07/17/2023 11:54 AM EDT Pulse 71 07/17/2023 11:54 AM EDT Temperature - - Respiratory Rate - - Oxygen Saturation - - Inhaled Oxygen Concentration - - Weight 72.6 kg (160 lb) 12/02/2024 3:04 PM EDT Height 165.1 cm (5' 5 ) 12/02/2024 3:04 PM EDT Body Mass Index 26.63 12/02/2024 3:04 PM EDT Plan of Treatment Upcoming Encounters Date Type Department Care Team (Late st Contact Info) Description 04/03/2025 11:45 AM EST Office Visit Orthopedic Surgery - [place] [address] [phone] Maggie Macedo MD [address] [address] Health Maintenance Due Date Last Done Comments [...] Comments ID INJECTION CARPAL TUNNEL THERAPEUTIC Routine 12/02/2024 2:45 PM EDT Carpal tunnel syndrome of left wrist from Last 3 Months Results * ID INJECTION CARPAL TUNNEL THERAPEUTIC (12/02/2024 2:45 PM EDT) Maggie Fernandez MD - 12/02/2024 2:45 PM EDT Maggie Macedo MD 12/02/2024 8:42 PM Hand / UE Inj/Asp: L carpal tunnel for carpal tunnel syndrome Indications: therapeutic Details: 25 G needle, volar approach Medications: 40 mg triamcinolone acetonide 40 mg/mL The patient agreed to proceed with carpal tunnel injection. The left side was confirmed. The volar wrist was prepped with Betadine and alcohol. Approximately a centimeter and a half back from the primary flexion crease of the wrist in the midline the skin was anesthetized with a small wheal of 1% lidocaine with epinephrine. After that had a chance to take effect I prepped the skin again. 40 mg of Kenalog was then injected into the carpal canal. Patient tolerated the injection without any pain or paresthesias. A bandage was applied. Postinjection instructions were reviewed with the patient. Informed Consent: Site: Carpal tunnel injection Laterality: Left Procedure/treatment, purpose, treatment alternatives, risks/potential complications and benefits explained: yes Risk/complications/benefits details: Cortisone is an effective medication to treat swelling, inflammation, and pain. It is used frequently for such conditions as arthritis, tendinitis, bursitis, and carpal tunnel syndrome. However, there are risks to the use of cortisone. For diabetics it can raise blood sugars to a dangerous level. It can cause skin thinning, fat atrophy, skin discoloration, and wound healing issues. It can predispose to infection. Chronic use can affect bone metabolism. It can over time and with repeated usage become less effective. Generally it is advisable NOT to have more than 3 injections/year. Patient questions answered: yes Patient agrees, verbalizes understanding, and wants to proceed: yes Consent given by: Patient Informed consent discussion completed by Physician/EDENILSON with patient: Verbal Pre-procedure timeout performed: yes Maggie Macedo MD IN CLINIC/BEDSIDE ORDERABLES Final Result from Last 3 Months Insurance [employer] MED[employer]ARE [employer]AGE Care Teams Operating Room Surgical Technologist Relationship Specialty Start Date End Date Ronnie Parr MD [address] [place] [address] [address] [place] PCP - General 11/06/23
[2025-02-10 12:12] LABS: Alanine Aminotransferase 30 U/L (0-31); Albumin Level 4.4 g/dL (3.5-5.0); Alkaline Phosphatase 88 U/L (39-117); Anion Gap 10 (12-20); Aspartate Amino Transferase 30 U/L (5-31); Blood Urea Nitrogen 14 mg/dL (9-16); Calcium 9.9 mg/dL (8.4-10.2); Carbon Dioxide 27 mmol/L (22-29); Chloride 107 mmol/L (96-108); Cholesterol 196 mg/dL (<200); Estimated Glomerular Filt Rate > 60; HDL Cholesterol 68 mg/dL (>40); Potassium 4.4 mmol/L (3.3-5.1); Sodium 140 mmol/L (135-145); Total Protein 6.8 g/dL (6.5-8.0); Triglycerides 61 mg/dL (<150)
== END 2025-02-10 09:07 | disposition home or self-care (01) ==
LOC: HO.LAB 09:06
PROVIDERS: PCP Internal Medicine; Visit Provider Internal Medicine
DX: R30.0 Dysuria (principal); R73.01 Impaired fasting glucose; E78.00 Pure hypercholesterolemia, unspecified
CPT/HCPCS: 36415; 80053; 80061; 81003; 83036